=== PATIENT | male | born 1965 | race Caucasian/White ===

== ENCOUNTER 2024-07-29 07:34 | Day surgery (SDC) | payer OTHER ==
[2024-07-27 13:33] LABS: Absolute Basophils 0.1 K/uL (0-0.5); Absolute Eosinophils 0.3 K/uL (0-0.5); Absolute Lymphocytes (CBC) 1.9 K/uL (0.7-4.9); Absolute Monocytes 0.5 K/uL (0.1-1.3); Absolute Neutrophil 6.2 K/uL (1.8-8.0); Basophils % 0.8 % (0-1.3); Eosinophils % 3.1 % (0-4.4); Hematocrit 41.8 % (39.6-49.0); Hemoglobin 13.5 g/dL (13.6-17.9); Lymphocytes % 21.3 % (15.3-44.8); MCH 26.8 pg (27.0-35.0); MCHC 32.3 g/dL (32.0-36.0); MPV 7.4 fL (7.6-11.3); Monocytes % 5.8 % (3.3-12.3); Nucleated Red Blood Cells % 0.1 % (0-0); Platelets 256 thou/uL (152-406); RBC Red Blood Cell Count 5.04 M/uL (4.33-5.43); Red Cell Distribution Width 14.6 % (12.1-15.2)
[2024-07-27 13:44] LABS: Anion Gap 7.2 mEq/L (5.0-15.0); Potassium 4.2 mEq/L (3.5-5.1)
--- NOTE | 2024-07-28 10:31 | EKG ---
Test Date: 2024-07-27 Test Time: 13:29:42 [facility] Lead: ALEXANDRA MEASUREMENT RESULTS: Intervals: Rate: 79 [place]: 170 QRSD: 84 QT: 374 QTc: 428 [place]: P: 46 [place]: 170 QRS: 27 T: 77 INTERPRETIVE STATEMENTS: Normal sinus rhythm Normal ECG No previous ECG available for comparison Electronically Signed On 07-28-24 10:29:57 CDT by Ramón Mancuso
[2024-07-29] MEDS: Ringers Lactate 1,000 ML IV ONE (08:00)
[2024-07-29] MEDS ORDERED: LIDOCAINE 1% MPF 5 ML VIAL ONE (10:46)
[2024-07-29] MEDS ORDERED: propofoL 200 MG/20 ML VIAL IV ONE (10:46)
[2024-07-29 13:29] VITALS: BP 115/68; TEMP 97.4; O2SAT 98
== END 2024-07-29 12:07 | disposition home or self-care (01) ==
LOC: OR 07:34
PROVIDERS: ATTEND Surgery
PROC: 0DBM8ZX Excision of Descending Colon, Via Natural or Artificial Opening Endoscopic, Diagnostic (ICD-10-PCS; principal; 2024-07-29 08:30)
DX: Z12.11 Encounter for screening for malignant neoplasm of colon (principal); N42.9 Disorder of prostate, unspecified; K52.9 Noninfective gastroenteritis and colitis, unspecified; K64.8 Other hemorrhoids
CPT/HCPCS: 93005; 85025; 80048; 36415; 88305; 45380; J2704; J2001; J7120

== ENCOUNTER 2024-08-04 11:29 | Day surgery (SDC) | payer OTHER ==
[2024-08-04] MEDS ORDERED: Ringers Lactate 1,000 ML IV ONE (11:34)
[2024-08-04] MEDS ORDERED: CEFAZOLIN SODIUM 2 GM/VIAL ONE (12:08)
[2024-08-04] MEDS ORDERED: LIDOCAINE 1% MPF 5 ML VIAL ONE (13:51)
[2024-08-04] MEDS ORDERED: propofoL 200 MG/20 ML VIAL IV ONE (13:51)
[2024-08-04] MEDS ORDERED: FENTANYL CITR 100 MCG/2 ML ONE (13:52)
[2024-08-04] MEDS ORDERED: MIDAZOLAM HCL 2 MG/2 ML INJ ONE (13:52)
[2024-08-04] MEDS ORDERED: ROCURONIUM 50 MG/5 ML VIAL IV ONE (13:53)
[2024-08-04] MEDS ORDERED: LIDOCAINE HCL/EPINEPHRINE 20 ML MDV ONE (13:55)
[2024-08-04] MEDS ORDERED: ONDANSETRON 4 MG/2 ML VIAL ONE (14:36)
[2024-08-04] MEDS ORDERED: KETOROLAC 30 MG/ML INJ ONE (14:36)
[2024-08-04] MEDS ORDERED: dexAMETHasone 4 MG/ML VIAL ONE (14:36)
[2024-08-04] MEDS ORDERED: GLYCOPYRROLATE 0.2 MG/ML SYR ONE (15:15)
[2024-08-04] MEDS ORDERED: NEOSTIGMINE 1 MG/ML -10 ML VIAL ONE (15:15)
--- NOTE | 2024-08-04 15:19 | P.OP ---
Preoperative diagnosis: Umbilical Hernia Postoperative diagnosis: Umbilical Hernia Primary procedure: Laparoscopic Umbilical Hernia Repair with mesh Anesthesia: GETA + Local Estimated blood loss: <5cc Specimen: Hernia Contents Findings: ~ 2cm incarcerated adipose hernia Complications: None Implants: Bard Ventralite ST 11.4cm Round mesh, Absorbatac x 45 Transferred to: Recovery Room Condition: Good
[2024-08-04] MEDS: HYDROMORPHONE HCL 1 MG/ML INJ ONE (15:33)
[2024-08-04 16:18] VITALS: TEMP 96.6
--- NOTE | 2024-08-04 16:18 | OP ---
Date of Procedure: 08/04/2024 Surgeon: Leonard Guerrero MD, Preoperative Diagnosis: Umbilical hernia. Postoperative Diagnosis: Umbilical hernia. Procedure: Laparoscopic umbilical hernia repair with mesh. Anesthesia: General endotracheal with local 1% lidocaine with epinephrine. Estimated Blood Loss: Less than 5 cc. Specimen: Hernia contents, adipose tissue. Findings: Approximately 2 cm incarcerated adipose containing hernia. Complications: None. Implants: Bard Ventralight ST mesh with Echo Positioning System, 11.4 cm round mesh utilized and Abs orbaTack 45 absorbable tacks utilized. Disposition: The patient transferred to recovery room in good condition. Procedure In Detail: After informed consent was obtained, patient was brought into the operating henrique m, prepped and draped in the usual sterile fashion after adequate anesthesia was achieved. I anesthe tized an area of the left upper quadrant down to subcutaneous tissues. 5-mm 0-degree optical trocar was introduced in the abdomen without incident or complication. Insufflation was obtained to 15 mmHg , at this time. There was no injury to vital structures upon entering the abdomen. Additional troca r was placed in the left lower abdomen, similarly anesthetized and sharply incised. A 12 mm trocar w as placed under direct vision without incident or complication. At this point, I used the LigaSure d evice to take down the hernia contents which was found to be adipose tissue in the preperitoneal spac e. Ultimately, this was ligated and placed in an EndoCatch bag and removed through the lateral troca r and sent off for pathologic examination as hernia contents. At this point, the area was inspected. No additional hemostatic measures were required. Preperitoneal fat was swept back. The Endo stitc h with an 0 V-Loc suture was used to close the hernia sac, imbricating it, at this point, in a runnin g fashion with good approximation of tissues. I then deployed an 11.4 cm Bard Ventralight mesh with Echo Positioning System at the center portion of the defect through a separate stab incision in the s upraumbilical position. This was ultimately deployed at this point and AbsorbaTack absorbable tacks were used to secure the mesh to the anterior abdominal wall with a single crown, at this point. The balloon deployment system was removed, found to be intact on the back table and a total of 45 tacks w ere used to secure the mesh to the anterior abdominal wall with good apposition using a double crown type orientation. At this point, the abdomen was desufflated slightly and the areas inspected. No a dditional hemostatic measures were required. I then closed the 12 mm trocar site using a Wai acuña suture passer with 0 Vicryl in an interrupted fashion with good approximation of tissues. The a bdomen was desufflated under direct visualization without incident or complication. All remaining tr ocars were removed. All skin incisions were then copiously irrigated and closed with a 4-0 Monocryl in a running fashion. Dermabond was placed over top. The patient tolerated the procedure without in cident or complication, and transferred to PACU in good condition. All counts were correct at the en d of the case. OTTONIEL/AMANDA Voice ID: [id number] Report ID: [id number]
[2024-08-04] MEDS: HYDROCODONE/APAP 10/325 TAB ONE (16:52)
[2024-08-04 17:12] VITALS: BP 111/63; O2SAT 95
== END 2024-08-04 17:05 | disposition home or self-care (01) ==
LOC: OR 11:29
PROVIDERS: ATTEND Surgery
PROC: 0WUF4JZ Supplement Abdominal Wall with Synthetic Substitute, Percutaneous Endoscopic Approach (ICD-10-PCS; principal; 2024-08-04 13:30)
DX: K42.9 Umbilical hernia without obstruction or gangrene (principal)
CPT/HCPCS: 49591; J2704; J1100; J2710; J2001; J2250; J3010; J1170; J2405; J7120; C1781; 88302

== ENCOUNTER 2024-12-02 12:29 | Emergency (ER) | payer OTHER ==
--- OUTSIDE RECORDS SUMMARY | 2024-12-02 12:36 | XMS REPORT | Continuity of Care Document ---
Author Name Unknown Address [address] [facility] [address] [place] [address] [facility] thconnect Address [address] [facility] [address] [place] [address] Care Team Providers Care Inoculator Name Role Phone Tila Gore [facility] Primary Care Physician MAGDY KERNS Attending Clinician Unavailable LUIS FELIPE FRY Attending Clinician Unavailable Vicente MERCER, Divya Silvestre Attending Clinician [phone] Luis Felipe Barrientos Attending Clinician [phone] KATERYNA FU Attending Clinician Unavailab KATERYNA Tompkins Attending Clinician Unavailab Kateryna Tompkins DO Attending Clinician [phone] Doctor Unassigned, [place] [employer] Attending Clinician U Magdy Harvey MD Attending Clinician [phone] RADIOLOGY Attending Clinician Unavailable Radiology Attending Clinician Unavailable Divya TRAMMELL Attending Clinician Unavailable Divya Shelton Attending Clinician [phone] Campaigns, Generic Provider Attending Clinician Unavailable GRAEME COLLINS Attending Clinician Unavailable Graeme Collins MD Attending Clinician [phone] EUNICE ESCOBEDO Attending Clinician Unavailable Eunice Escobedo NP Attending Clinician +[phone] AMBERLY FREY Attending Clinician Unavailable Amberly Frey MD Attending Clinician +[phone] AZALEA QUEEN Attending Clinician Unavailable Azalea Queen MD Attending Clinician +[phone] ORLANDO KWAN Attending Clinician Unavailable DIVYA JACKSON Attending Clinician Unavailable Divya Jackson NP Attending Clinician +[phone] JOHNNIE BAGLEY Attending Clinician Unavailable Johnnie Bagley MD Attending Clinician [phone] FLORIAN LEMUS Attending Clinician Unavailable Floiran Mckeon Attending Clinician [phone] BILL RWOE Attending Clinician Unavailable Bill Vincent Attending Clinician [phone] Unknown, Attending Attending Clinician Unavailab JUAQUIN Olson Attending Clinician Unavailable Juaquin Boswell DO Attending Clinician [phone] Misty Carpenter Attending Clinician Unavailang Bo --Gay Attending Clinician [phone] Malick Attending Clinician Unavailable Yoan Lockett Attending Clinician Unavailable MAGDY KERNS Admitting Clinician Unavailable KATERYNA FU Admitting Clinician Unavailab ZACH Lay Admitting Clinician Unavailab GRAEME Agosto Admitting Clinician Unavailable JUAQUIN BOSWELL Admitting Clinician Unavailable Physician, No Primary or Family Admitting Clinic michaela Unavailable Mattrokenrick_R Admitting Clinician Unavailable Payers Payer Name Policy Type Policy Number Effective Date Expirati on Date Source [facility] [id number] 00:00:00 [employer] MEDIC[employer] ADV[employer]AGE PLAN [id number] 2023 00:00:00 [employer] (MEDICARE REPLACEMENT HMO) [id number] 2022 00:00:00 Problems Condition Name Condition Details Condition Category Status Onset Date Resolution Date Last Treatment Date Treating Clinician Comments Source Gastroesop hageal reflux disease, unspecifie d whether esophagiti s present Gastroesop hageal reflux disease, unspecifie d whether esophagiti s present Disease Active 2024-0 4-10 00:00: 00 [facility] Alternatin g constipati on and diarrhea Alternatin g constipati on and diarrhea Disease Active 0 4-10 00:00: 00 [facility] Colon cancer screening Colon cancer screening Disease Active 0 4-10 00:00: 00 [facility] Allergies, Adverse Reactions, Alerts Allergy Name Allergy Type Status Severity Reaction(s) Onset Date Inactive Date Treating Clinician Comments Source tree nuts (Not Checked) Propensi ty to adverse reaction to drug Active 0 5-08 00:00: 00 [facility] iodine Propensi ty to adverse reaction to drug Active 0 3-28 00:00: 00 [facility] LATEX DRUG INGREDI Active Unknown-Cmnt 2022-11 1-11 00:00: 00 [facility] Latex Propensi ty to adverse reaction s Active Unknown - See comments 2022-11 1- 00:00: 00 [facility] shellfis h derived FA Active SV HIVES, BLISTERS, THROAT SWELLING 0 4-04 00:00: 00 [facility] Codeine Phosphat e Propensi ty to adverse reaction to drug Active 0 3-16 00:00: 00 [facility] TREE NUT DRUG INGREDI Active Anaphylaxis 2022-0 2-22 00:00: 00 [facility] Codeine Propensi ty to adverse reaction s Active Hives 2022-0 2-22 00:00: 00 [facility] Iodine Propensi ty to adverse reaction s Active Anaphylaxis 2022-0 2-22 00:00: 00 [facility] Penicill ins Propensi ty to adverse reaction s Active Hives 2022-0 2-22 00:00: 00 [facility] Shellfis h Derived Propensi ty to adverse reaction s Active Anaphylaxis 2022-0 2-22 00:00: 00 [facility] Tree Nut Propensi ty to adverse reaction s Active Anaphylaxis 2022-0 2-22 00:00: 00 [facility] PENICILL INS Drug Class Active Hives 2022-0 2-22 00:00: 00 [facility] CODEINE DRUG INGREDI Active Hives 01-14 00:00: 00 [facility] SHELLFIS H DERIVED DRUG INGREDI Active Anaphylaxis 01-14 00:00: 00 [facility] IODINE DRUG INGREDI Active Anaphylaxis 01-14 00:00: 00 [facility] shellfis h derived FA Active MO SWELLING 12-10 00:00: 00 [facility] iodine DA Active MO ITCHING 12-10 00:00: 00 [facility] latex DA Active MO RASH 12-10 00:00: 00 [facility] Penicill ins Propensi ty to adverse reaction to drug Active 01-06 00:00: 00 [facility] Penicill ins DA Active U RASH 2020-11 00:00: 00 [facility] codeine DA Active U RASH 2020-11 00:00: 00 [facility] NO KNOWN ALLERGIE S Drug Class Active [facility] Social History Social Habit Start Date Stop Date Quantity Comments Source Gender identity [facility] History of tobacco use Cigarette Smoker [facility] Tobacco use and exposure 2024-03-02 00:00:00 2024-03-02 00:00:00 Smokeless tobacco non-user [facility] History of Social function 2023-08-04 00:00:00 2023-08-04 00:00:00 [facility] Exposure to SARS-CoV-2 (event) 2023-03-15 00:00:00 2023-03-25 17:29:00 Not sure [facility] Sex assigned at 1965 00:00:00 1965 00:00:00 [facility] Smoking Status Start Date Stop Date Source Tobacco smoking consumption unknown [facility] Ex-smoker 2024-03-02 00:00:00 2024-03-02 00:00:00 [facility] Medications Ordered Medication Name Filled Medication Name Start Date Stop Date Current Medication? Ordering Clinician Indication Dosage Frequency Signature (SIG) Comments Components Source aripiprazol e 10 mg tablet 2023-11 00:00: 00 Yes 1mg [facility] hydroxyzine HCl 25 mg tablet 2023-11 00:00: 00 Yes 1mg [facility] escitalopra m 10 mg tablet 2023-11 00:00: 00 Yes 1mg [facility] acetaminoph en (TYLENOL) tablet 1,000 mg 2023-11 01:00: 00 10-25 01:00 :00 No 1000mg 1,000 mg, Oral, ONCE, 1 dose, On Thu10/24/24 at 1900, [facility] benzonatate 200 mg capsule 2023-11 00:00: 00 Yes [id number] 200mg Take 1 capsule by mouth 3 (three) times daily as needed for Cough. [facility] oseltamivir 75 mg capsule 2023-11 00:00: 00 10-30 05:59 :00 Yes [id number] 75mg Take 1 capsule by mouth in the morning and 1 capsule in the evening. Do all this for 5 days. [facility] aripiprazol e 10 mg tablet 2023-11 00:00: 00 Yes 1mg [facility] hydroxyzine HCl 25 mg tablet 2023-11 00:00: 00 Yes 1mg [facility] escitalopra m 10 mg tablet 2023-11 00:00: 00 Yes 1mg [facility] aripiprazol e 10 mg tablet 2023-11 00:00: 00 Yes 1mg [facility] hydroxyzine HCl 25 mg tablet 2023-11 00:00: 00 Yes 1mg [facility] escitalopra m 10 mg tablet 2023-11 00:00: 00 Yes 1mg [facility] aripiprazol e 10 mg tablet 08-13 00:00: 00 Yes 1mg [facility] hydroxyzine HCl 25 mg tablet 08-13 00:00: 00 Yes 1mg [facility] escitalopra m 10 mg tablet 08-13 00:00: 00 Yes 1mg [facility] aripiprazol e 10 mg tablet 07-16 00:00: 00 Yes 1mg [facility] hydroxyzine HCl 25 mg tablet 07-16 00:00: 00 Yes 1mg [facility] escitalopra m 10 mg tablet 07-16 00:00: 00 Yes 1mg [facility] methocarbam oL (ROBAXIN) tablet 1,000 mg 07-03 19:15: 00 07-03 19:15 :00 No 1000mg 1,000 mg, Oral, ONCE, 1 dose, On Thu07/03/24 at 1415, [facility] ketorolac (TORADOL) injection 30 mg 07-03 18:00: 00 07-03 17:14 :00 No 30mg 30 mg, Slow IV Push, ONCE, 1 dose, On Thu07/03/24 at 1300, Routine [facility] NaCl 0.9% (NS) bolus infusion 1,000 mL 07-03 18:00: 00 07-03 19:12 :00 No 1000mL at 999 mL/hr, 1,000 mL, IV Infusion, ONCE, 1 dose, On Thu07/03/24 at 1300, [facility] methocarbam oL 750 mg tablet 07-03 00:00: 00 Yes [id number] 750mg Take 1 tablet by mouth every 6 (six) hours as needed for Pain (scale 1-3). [facility] aripiprazol e 10 mg tablet 06-17 00:00: 00 Yes 1mg [facility] hydroxyzine HCl 25 mg tablet 06-17 00:00: 00 Yes 1mg [facility] escitalopra m 10 mg tablet 06-17 00:00: 00 Yes 1mg [facility] lisinopril 5 mg tablet 06-08 00:00: 00 Yes 1mg [facility] doxepin 25 mg capsule 06-08 00:00: 00 Yes 12mg [facility] aripiprazol e 10 mg tablet 05-06 00:00: 00 Yes 1mg [facility] hydroxyzine HCl 25 mg tablet 05-06 00:00: 00 Yes 1mg [facility] escitalopra m 10 mg tablet 05-06 00:00: 00 Yes 1mg [facility] prednisone 20 mg tablet 05-02 00:00: 00 Yes mg [facility] ketoconazol e 2 % shampoo 05-02 00:00: 00 Yes % [facility] ibuprofen 800 mg tablet 05-02 00:00: 00 Yes 1mg [facility] aripiprazol e 10 mg tablet 04-15 00:00: 00 Yes 1mg [facility] hydroxyzine HCl 25 mg tablet 04-15 00:00: 00 Yes 1mg [facility] escitalopra m 10 mg tablet 04-15 00:00: 00 Yes 1mg [facility] dicyclomine 20 mg tablet 03-30 00:00: 00 07-03 00:00 :00 No [id number] 20mg Take 1 tablet by mouth 4 (four) times daily. [facility] aripiprazol e 10 mg tablet 03-18 00:00: 00 Yes 1mg [facility] hydroxyzine HCl 25 mg tablet 03-18 00:00: 00 Yes 1mg [facility] escitalopra m 10 mg tablet 03-18 00:00: 00 Yes 1mg [facility] ondansetron (ZOFRAN-ODT ) disintegrat ing tablet 4 mg 03-15 20:00: 00 03-15 18:58 :00 No 4mg 4 mg, Oral, ONCE, 1 dose, On Thu03/15/24 at 1500, Routine [facility] methocarbam ol 500 mg tablet 03-15 00:00: 00 Yes mg [facility] esomeprazol e magnesium 20 mg capsule,del ayed release 03-15 00:00: 00 Yes mg [facility] NAPROXEN 500 MG 03-15 00:00: 00 Yes [facility] ONDANSETRON ODT 4 MG 03-15 00:00: 00 Yes [facility] esomeprazol e (NEXIUM 24HR) 20 mg capsule 03-15 00:00: 00 Yes [id number] 20mg Take 20 mg by mouth daily before a meal. [facility] ondansetron 4 mg disintegrat ing tablet 03-15 00:00: 00 07-03 00:00 :00 No [id number] 4mg Take 1 tablet by mouth every 8 (eight) hours as needed for Nausea and Vomiting (N/V). [facility] methocarbam oL 500 mg tablet 03-15 00:00: 00 07-03 00:00 :00 No [id number] 500mg Take 1 tablet by mouth 4 (four) times daily. [facility] benzonatate 200 mg capsule 03-15 00:00: 00 07-03 00:00 :00 No [id number] 200mg Take 1 capsule by mouth 3 (three) times daily as needed for Cough for up to 20 doses. [facility] naproxen (NAPROSYN) 500 mg tablet 03-15 00:00: 00 07-03 00:00 :00 No [id number] 500mg Take 1 tablet by mouth in the morning and 1 tablet in the evening. Take with meals. [facility] acetaminoph en (TYLENOL) tablet 1,000 mg 03-04 17:30: 00 03-04 16:32 :00 No 1000mg 1,000 mg, Oral, ONCE, 1 dose, On Thu03/04/24 at 1230, Routine [facility] NaCl 0.9% (NS) bolus infusion 1,000 mL 03-04 15:15: 00 03-04 16:55 :00 No 1000mL at 999 mL/hr, 1,000 mL, IV Infusion, ONCE, 1 dose, On Thu03/04/24 at 1015, STAT [facility] ondansetron (ZOFRAN (PF)) injection 4 mg 03-04 15:15: 00 03-04 14:26 :00 No 4mg 4 mg, Slow IV Push, ONCE, 1 dose, On Thu03/04/24 at 1015, [facility] dicyclomine 20 mg tablet 03-04 00:00: 00 Yes mg [facility] dicyclomine 20 mg tablet 03-04 00:00: 00 07-03 00:00 :00 No [id number] 20mg Take 1 tablet by mouth 4 (four) times daily. [facility] ARIPiprazol e (ABILIFY) 5 mg tablet 03-02 15:10: 36 Yes 1 tablet Orally Once a day [facility] escitalopra m oxalate (LEXAPRO) 20 mg tablet 03-02 15:10: 36 Yes 1 tablet Orally Once a day [facility] lisinopriL 5 mg tablet 03-02 15:10: 36 Yes 1 tablet Orally Once a day [facility] TAKE DIRECTED BEFORE COLONOSCOPY 03-02 00:00: 00 Yes [facility] peg-electro lyte soln 236-22.74-6 .74 -5.86 gram solution 03-02 00:00: 00 Yes [id number] Take as directed before colonoscop y [facility] hydrOXYzine 25 mg tablet 02-22 00:00: 00 Yes [facility] lisinopril 5 mg tablet 02-17 00:00: 00 Yes 1mg [facility] aripiprazol e 10 mg tablet 02-17 00:00: 00 Yes 1mg [facility] hydroxyzine HCl 25 mg tablet 02-17 00:00: 00 Yes 1mg [facility] escitalopra m 10 mg tablet 02-17 00:00: 00 Yes 1mg [facility] doxepin 25 mg capsule 02-17 00:00: 00 Yes 12mg [facility] escitalopra m 10 mg tablet 02-09 00:00: 00 Yes 1mg [facility] NAPROXEN 125 MG/5 ML SUSPEN 01-28 00:00: 00 Yes [facility] TAKE 1 TABLET BY MOUTH 4 TIMES DAILY NEEDED FOR MUSCLE SPASMS. 01-28 00:00: 00 Yes [facility] ondansetron (ZOFRAN-ODT ) disintegrat ing tablet 4 mg 01-21 00:00: 00 23:38 :00 No 4mg 4 mg, Oral, ONCE, 1 dose, On [place] 01/21/24 at 1800, Routine [facility] ketorolac (TORADOL) injection 30 mg 23:15: 00 23:38 :00 No 30mg 30 mg, Intramuscu lar, ONCE, 1 dose, On [place] 01/21/24 at 1715, [facility] TAKE 1 CAPSULE BY MOUTH THREE TIMES A DAY NEEDED FOR COUGH 00:00: 00 Yes [facility] proMETHazin e 25 mg tablet 00:00: 00 07-03 00:00 :00 No [id number] 25mg Take 1 tablet by mouth every 6 (six) hours as needed for Nausea and Vomiting (N/V). [facility] benzonatate 100 mg capsule 00:00: 00 07-03 00:00 :00 No [id number] 100mg Take 1 capsule by mouth 3 (three) times daily as needed for Cough. [facility] aripiprazol e 5 mg tablet 01-13 00:00: 00 Yes mg [facility] escitalopra m 10 mg tablet 01-13 00:00: 00 Yes mg [facility] TAKE 1 TABLET AT BEDTIME. 01-13 00:00: 00 04-01 00:00 :00 No 10 [facility] TAKE 1 AND 1/2 TABLETS AT BEDTIME. 01-13 00:00: 00 04-01 00:00 :00 No 5 [facility] ofloxacin 0.3 % ophthalmic solution 18 00:00: 00 01-16 05:59 :00 No [id number] 1[drp] Place 1 Drop in left eye in the morning and 1 Drop at noon and 1 Drop in the evening. Do all this for 5 days. [facility] OFLOXACIN 0.3% EYE DROPS 01-09 00:00: 00 Yes [facility] ESCITALOPRA M 5 MG 12-16 00:00: 00 Yes [facility] ARIPIPRAZOL E 5 MG 12-16 00:00: 00 Yes [facility] TAKE 1 TABLET DAILY. 12-16 00:00: 00 04-01 00:00 :00 No 5 [facility] TAKE 1 AND 1/2 TABLETS AT BEDTIME. 12-16 00:00: 00 04-01 00:00 :00 No 5 [facility] TAKE 1 TABLET DAILY. 12-02 00:00: 00 Yes 5 [facility] methylPREDN ISolone 4 mg tablets 11-28 00:00: 00 07-03 00:00 :00 No [id number] Take by mouth SEE-INSTRU CTIONS. follow package directions [facility] acetaminoph en (TYLENOL) tablet 650 mg 11-27 23:45: 00 11-27 23:41 :00 No 650mg 650 mg, Oral, ONCE, 1 dose, On Thu11/27/23 at 1745, [facility] NaCl 0.9% (NS) bolus infusion 500 mL 11-27 22:30: 00 11-27 22:59 :00 No 500mL at 999 mL/hr, 500 mL, IV Infusion, ONCE, 1 dose, On Thu11/27/23 at 1630, [facility] dexamethaso ne sod phos PF injection 10 mg 11-27 21:45: 00 11-27 22:04 :00 No 10mg 10 mg, Slow IV Push, ONCE, 1 dose, On Thu11/27/23 at 1545, 1 mL [facility] diphenhydrA MINE (BENADRYL) injection 25 mg 11-27 21:45: 00 11-27 22:05 :00 No 25mg 25 mg, Slow IV Push, ONCE, 1 dose, On Thu11/27/23 at 1545, STAT [facility] famotidine (PEPCID (PF)) injection 20 mg 11-27 21:45: 00 11-27 22:01 :00 No 20mg 20 mg, Slow IV Push, ONCE, 1 dose, On Thu11/27/23 at 1545, [facility] EPINEPHrine 1:1,000 (1 mg/mL) (ADRENALIN) injection 0.3 mg 11-27 21:45: 00 11-27 21:45 :00 No .3mg 0.3 mg, Intramuscu lar, ONCE, 1 dose, On Thu11/27/23 at 1545, STAT [facility] ARIPiprazol e (ABILIFY) 5 mg tablet 11-27 16:03: 11 Yes 1 tablet Orally Once a day [facility] escitalopra m oxalate (LEXAPRO) 20 mg tablet 11-27 16:03: 11 Yes 1 tablet Orally Once a day [facility] lisinopriL 5 mg tablet 11-27 16:03: 11 Yes 1 tablet Orally Once a day [facility] METHYLPREDN ISOLONE 4 MG DOSEPK 11-27 00:00: 00 Yes [facility] FAMOTIDINE 20 MG 11-27 00:00: 00 Yes [facility] EPINEPHRINE 0.3 MG AUTO-INJECT 11-27 00:00: 00 Yes [facility] EPINEPHrine 0.3 mg/0.3 mL injection 11-27 00:00: 00 Yes [id number] .3mg 0.3 mL by Intramuscu lar route as needed (allergic reactice) for up to 2 doses. [facility] TAKE 1 TABLET DAILY. 11-27 00:00: 00 04-01 00:00 :00 No 5 [facility] famotidine 20 mg tablet 11-27 00:00: 00 12-05 05:59 :00 No [id number] 20mg Take 1 tablet by mouth in the morning and 1 tablet in the evening. Do all this for 7 days. [facility] TAKE 1 AND 1/2 TABLETS AT BEDTIME. 2022-11 00:00: 00 04-01 00:00 :00 No 5 [facility] TAKE 1 AND 1/2 TABLETS AT BEDTIME. 2022-11 00:00: 00 04-01 00:00 :00 No 5 [facility] ARIPIPRAZOL E 5 MG 2022-11 00:00: 00 Yes [facility] TAKE 0.5 TABLET FOR 3 DAYS THEN SWITCH TO 1 TABLET AT NIGHT 2022-11 00:00: 00 04-01 00:00 :00 No 5 [facility] TAKE 1 TABLET DAILY. 2022-11 00:00: 00 Yes 6 [facility] lactobacill us acidophilus tablet 1 mg 2022-11 16:00: 00 10-03 15:27 :00 No 1mg 1 mg, Oral, ONCE NOW, 1 dose, On 10/03/23 at 1000, [facility] loperamide (IMODIUM A-D) capsule 4 mg 2022-11 16:00: 00 10-03 15:27 :00 No 4mg 4 mg, Oral, ONCE NOW, 1 dose, On 10/03/23 at 1000, Routine [facility] ketorolac (TORADOL) injection 30 mg 2022-11 15:45: 00 10-03 15:27 :00 No 30mg 30 mg, Slow IV Push, ONCE NOW, 1 dose, On 10/03/23 at 0945, [facility] NaCl 0.9% (NS) bolus infusion 1,000 mL 2022-11 15:45: 00 10-03 16:53 :00 No 1000mL at 999 mL/hr, 1,000 mL, IV Piggyback, ONCE, 1 dose, On 10/03/23 at 0945, STAT [facility] ONDANSETRON ODT 4 MG 2022-11 00:00: 00 Yes [facility] [place] ondansetron 4 mg disintegrat ing tablet 2022-11 00:00: 00 Yes [id number] 4mg Take 1 tablet by mouth every 8 (eight) hours as needed for Nausea and Vomiting (N/V). [facility] ketorolac 10 mg tablet 2022-11 00:00: 00 Yes [id number] 10mg Take 1 tablet by mouth every 6 (six) hours as needed for Pain (scale 4-6) or Pain (scale 7-10). [facility] acetaminoph en (TYLENOL ARTHRITIS PAIN) 650 mg CR tablet 2022-11 00:00: 00 Yes [id number] 650mg Take 1 tablet by mouth every 8 (eight) hours as needed for Pain. [facility] loperamide 2 mg capsule 2022-11 00:00: 00 Yes [id number] 2mg Take 1 capsule by mouth 3 (three) times daily as needed for Diarrhea. [facility] Saccharomyc es boulardii (FLORASTOR) 250 mg capsule 2022-11 00:00: 00 Yes [id number] 250mg Take 1 capsule by mouth in the morning and 1 capsule in the evening. [facility] EC-NAPROXEN DR 500 MG 2022-11 00:00: 00 Yes [facility] DIHYDROERGO TAMINE 4 MG/ML SPRY 2022-11 00:00: 00 Yes [facility] ESCITALOPRA M 5 MG 2022-11 00:00: 00 Yes [facility] ZIPRASIDONE HCL 40 MG CAPSULE 2022-11 00:00: 00 Yes [facility] hydrOXYzine PAMOATE 50 MG C 2022-11 00:00: 00 Yes [facility] LITHIUM CARB 600 MG 2022-11 00:00: 00 Yes [facility] DOXEPIN HCL 50 MG 2022-11 00:00: 00 Yes [facility] SUMAtriptan (IMITREX) injection 6 mg 2022-11 23:00: 00 09-02 22:53 :00 No 6mg 6 mg, Subcutaneo us, ONCE, 1 dose, On Thu09/02/23 at 1800, [facility] ondansetron (ZOFRAN-ODT ) disintegrat ing tablet 4 mg 2022-11 21:30: 00 09-02 20:58 :00 No 4mg 4 mg, Oral, ONCE, 1 dose, On Thu09/02/23 at 1630, Routine [facility] SUMAtriptan (IMITREX) injection 6 mg 2022-11 20:30: 00 09-02 20:58 :00 No 6mg 6 mg, Subcutaneo us, ONCE, 1 dose, On Thu09/02/23 at 1530, [facility] SUMATRIPTAN SUCC 100 MG 2022-11 00:00: 00 Yes [facility] ondansetron 4 mg disintegrat ing tablet 2022-11 00:00: 00 11-27 00:00 :00 No [id number] 4mg Take 1 tablet by mouth every 8 (eight) hours as needed for Nausea and Vomiting (N/V). [facility] LISINOPRIL 5 MG 08-19 00:00: 00 Yes [facility] NEOMYCIN-PO LYMYXIN-HC EAR SUSP 08-04 00:00: 00 Yes [facility] neomycin-po lymyxin-hyd rocortisone 3.5-10,000- 1 mg/mL-unit/ mL-% otic susp 08-04 00:00: 00 08-15 04:59 :00 No [id number] 3[drp] Place 3 Drops in left ear 4 (four) times daily for 10 days. [facility] ZIPRASIDONE HCL 40 MG CAPSULE 08-03 00:00: 00 Yes [facility] ondansetron (ZOFRAN (PF)) injection 4 mg 07-30 15:30: 00 07-30 15:27 :00 No 4mg 4 mg, Slow IV Push, ONCE, 1 dose, On [place] 07/30/23 at 1030, [facility] TAKE 1 TABLET BY MOUTH TWICE A DAY 06-30 00:00: 00 Yes [facility] acetaminoph en (TYLENOL) tablet 1,000 mg 06-06 21:30: 00 06-06 21:25 :00 No 1000mg 1,000 mg, Oral, ONCE, 1 dose, On 06/06/23 at 1630, [facility] ondansetron (ZOFRAN (PF)) injection 4 mg 06-06 20:30: 00 06-06 19:34 :00 No 4mg 4 mg, Slow IV Push, ONCE, 1 dose, On 06/06/23 at 1530, [facility] NaCl 0.9% (NS) bolus infusion 1,000 mL 06-06 20:30: 00 06-06 20:48 :00 No 1000mL at 999 mL/hr, 1,000 mL, IV Infusion, ONCE, 1 dose, On 06/06/23 at 1530, STAT [facility] FAMOTIDINE 20 MG 06-06 00:00: 00 Yes [facility] KETOROLAC 10 MG 06-06 00:00: 00 Yes [facility] METOCLOPRAM JAYDEN 10 MG 15 00:00: 00 Yes [facility] ketorolac 10 mg tablet 15 00:00: 00 07-03 00:00 :00 No [id number] 10mg Take 1 tablet by mouth every 8 (eight) hours. [facility] metoclopram jayden HCl 10 mg tablet 15 00:00: 00 11-27 00:00 :00 No [id number] 10mg Take 1 tablet by mouth every 6 (six) hours. [facility] famotidine 20 mg tablet 7-15 00:00: 00 11-27 00:00 :00 No [id number] 20mg Take 1 tablet by mouth in the morning and 1 tablet in the evening. [facility] ubrogepant (UBRELVY) 100 mg Tab 7-12 00:00: 00 Yes 1 tablet may take second dose at least 2 hours after first dose as needed Orally Once a day for 30 day(s) [facility] TAKE 1 CAPSULE TWICE DAILY. 05-20 00:00: 00 Yes 40 [facility] TAKE 1 TABLET TWICE DAILY. 05-20 00:00: 00 Yes 450 [facility] 1 (EACH) TWICE A DAY TAKE WITH 350 CALORIE MEAL 05-13 00:00: 00 Yes [facility] DOXEPIN HCL 25MG 05-13 00:00: 00 Yes [id number] [facility] CITALOPRAM 20MG 05-13 00:00: 00 Yes [facility] LITHIUM CARB 300MG - 00:00: 00 Yes [id number] [facility] TAKE 1 CAPSULE TWICE DAILY. 04-14 00:00: 00 Yes 20 [facility] TAKE 1 TABLET DAILY. 04-14 00:00: 00 Yes 20 [facility] DOXEPIN HCL 25MG 17 00:00: 00 Yes [facility] 1 (EACH) DAILY DECREASE TO 20MG EVERY DAY 04-08 00:00: 00 Yes [facility] TAKE 1 TABLET BY MOUTH TWICE A DAY 17 00:00: 00 04-01 00:00 :00 No [facility] LITHIUM CARB 300MG -08 00:00: 00 Yes [id number] [facility] clonazePAM (KLONOPIN) tablet 1 mg - 01:00: 00 Yes 1mg 1 mg, Oral, TID, First dose on Thu03/25/23 at 2000, Until Discontinu ed, Routine [facility] HYDROXYZ HCL 10MG 03-26 00:00: 00 Yes [facility] LORazepam (ATIVAN) tablet 1 mg 03-25 21:15: 00 03-25 22:18 :00 No 1mg 1 mg, Oral, ONCE, 1 dose, On Thu03/25/23 at 1615, [facility] TAKE 1 TABLET BY MOUTH EVERY 6 HOURS NEEDED 03-25 00:00: 00 Yes [facility] hydrOXYzine 10 mg tablet 03-25 00:00: 00 11-27 00:00 :00 No [id number] 10mg Take 1 tablet by mouth every 6 (six) hours. [facility] TAKE 1 CAPSULE BY MOUTH EVERY 8 HOURS WITH FOOD AND WATER UNTIL GONE 03-20 00:00: 00 Yes Vasquez Marlow HYDROXYZ HCL 25MG 03-19 00:00: 00 Yes [id number] Vasquez Marlow IBUPROFEN 800MG 03-12 00:00: 00 Yes Vasquez Marlow CLINDAMYCIN 300MG 03-12 00:00: 00 Yes Vasquez Marlow ZIPRASIDONE 20MG 02-23 00:00: 00 Yes Vasquez Marlow ketorolac (TORADOL) injection 60 mg 02-11 14:00: 00 02-11 13:26 :00 No 60mg 60 mg, Intramuscu lar, ONCE NOW, 1 dose, On Thu02/11/23 at 0900, [facility] TAKE 5 ML BY MOUTH EVERY 6 HOURS NEEDED FOR COUGH FOR 10 DAYS 02-11 00:00: 00 Yes Vasquez Marlow TAKE 2 TABLETS BY MOUTH TODAY, THEN TAKE 1 TABLET DAILY FOR 4 DAYS 02-11 00:00: 00 Yes Vasquez Marlow proCHLORper azine 10 mg tablet 02-11 00:00: 00 11-27 00:00 :00 No [id number] 10mg Take 1 tablet by mouth every 6 (six) hours as needed for Nausea and Vomiting (N/V) (Migraine, to take together with TORADOL). [facility] acetaminoph en (TYLENOL ARTHRITIS PAIN) 650 mg CR tablet 02-11 00:00: 00 11-27 00:00 :00 No [id number] 650mg Take 1 tablet by mouth every 8 (eight) hours as needed for Pain. [facility] ketorolac 10 mg tablet 02-11 00:00: 00 06-06 00:00 :00 No [id number] 10mg Take 1 tablet by mouth every 6 (six) hours as needed for Pain (scale 4-6) or Pain (scale 7-10). [facility] OLANZAPINE 2.5MG 02-05 00:00: 00 Yes Vasquez Marlow TAKE 1 TABLET AT BEDTIME. 02-05 00:00: 00 04-01 00:00 :00 No 25 Vasquez Marlow TAKE 1 TABLET DAILY. 02-05 00:00: 00 04-01 00:00 :00 No 20 Vasquez Marlow TAKE 1 TABLET BY MOUTH TWICE A DAY NEEDED 01-26 00:00: 00 Yes Vasquez Marlow LITHIUM CARB 300MG 01-26 00:00: 00 Yes [id number] Vasquez Marlow ONDANSETRON 4MG ODT 01-14 00:00: 00 Yes Vasquez Marlow ondansetron 4 mg disintegrat ing tablet 01-14 00:00: 00 09-02 00:00 :00 No [id number] 4mg Take 1 tablet by mouth every 8 (eight) hours as needed for Nausea and Vomiting (N/V). [facility] SODIUM/POTA S MAGNESIU DULCE MARIA 2- 00:00: 00 Yes Vasquez Marlow GAVILYTE-G LEMON PK DULCE MARIA 2- 00:00: 00 Yes Vasquez Marlow SMZ/TMP DS [id number] 1- 00:00: 00 Yes Vasquez Marlow CITALOPRAM 20MG 1-03 00:00: 00 Yes Vasquez Marlow LITHIUM CARB 300MG 2021-11- 00:00: 00 Yes 300 Vasquez Marlow TAKE 1 TABLET BY MOUTH EVERY DAY IN THE MORNING 2022-1 2-19 00:00: 00 Yes Vasquez Marlow CITALOPRAM 40MG 2021-11 2-15 00:00: 00 Yes Vasquez Marlow LITHIUM CARB 300MG ER 2021-11 2- 00:00: 00 Yes Vasquez Marlow Dose Unknown 2021-11 2- 00:00: 00 Yes Vasquez Marlow MIX AND DRINK DIRECTED 2021-11 2- 00:00: 00 Yes Vasquez Marlow Dose Unknown 2021-11 2- 00:00: 00 Yes Vasquez Marlow Dose Unknown 2021-11 2- 00:00: 00 Yes Vasquez Marlow Dose Unknown 2021-11 2- 00:00: 00 Yes Vasquez Marlow Dose Unknown 2021-11 2- 00:00: 00 Yes Vasquez Marlow Dose Unknown 2021-11 2 00:00: 00 Yes Vasquez Marlow TAKE 1 TABLET IN THE MORNING ORALLY ONCE A DAY 14 DAY(S) 2021-11 2 00:00: 00 Yes Vasquez Marlow Dose Unknown 2021-11 2 00:00: 00 Yes Vasquez Marlow HYDROXYZ HCL 25MG TAB 2021-11 2- 00:00: 00 Yes Vasquez Marlow LEVOFLOXACI N 500MG TAB 2021-11 2 00:00: 00 Yes Vasquez Marlow Dose Unknown 2021-11 2 00:00: 00 Yes Vasquez Marlow TAKE 1 TABLET BY MOUTH EVERY DAY NEEDED FOR 30 DAYS 2021-11 2 00:00: 00 Yes Vasquez Marlow TAKE 1 TABLET BY MOUTH TWICE A DAY. 2021-11 2 00:00: 00 Yes Vasquez Marlow PANTOPRAZOL E [address]MG DR 2021-11 0-13 00:00: 00 Yes [id number] Vasquez Marlow VENLAFAXINE ER 37.5MG CAPSULES 8-24 00:00: 00 Yes Vasquez Marlow AZITHROMYCI N 250MG TABLETS 6-RUBEN 2021-0 8-24 00:00: 00 Yes Vasquez Marlow AZITHROMYCI N 250MG TABLETS 6-RUBEN 2021-0 8-18 00:00: 00 Yes Vasquez Marlwo SUPREP BOWEL PREP KIT 8-05 00:00: 00 Yes [id number] Vasquez Marlow VENLAFAXINE ER 37.5MG CAPSULES - 00:00: 00 Yes Vasquez Marlow AZITHROMYCI N 250MG TABLETS 6-RUBEN - 00:00: 00 Yes Vasquez Marlow Celexa 20 mg tablet - 00:00: 00 Yes 1mg Vasquez Marlow lisinopril 10 mg tablet - 00:00: 00 Yes 1mg Vasquez Marlow Immunizations Ordered Immunization Name Filled Immunization Name Date Status Comments Source Influenza, injectable, Madin [facility], preservative-free, quadrivalent Influenza, injectable, Madin [place] [facility], preservative-free, quadrivalent 2024-09-29 00:00:00 Completed Vasquez Marlow Prevnar 20 Prevnar 20 2024-05-18 00:00:00 Completed Vasquez Marlow Vital Signs Vital Name Observation Time Observation Value Comments S ource Systolic blood pressure 2024-10-25 03:16:00 138 mm[Hg] [facility] Diastolic blood pressure 2024-10-25 03:16:00 95 mm[Hg] [facility] Heart rate 2024-10-25 03:16:00 104 /min [facility] Body temperature 2024-10-25 03:16:00 37.44 [facility] Respiratory rate 2024-10-25 03:16:00 15 /min [facility] Oxygen saturation in Arterial blood by Pulse oximetry 2024-10-25 03:16:00 95 /min [facility] Body height 2024-10-25 00:55:00 177.8 cm [facility] Body weight 2024-10-25 00:55:00 110.224 kg [facility] BMI 2024-10-25 00:55:00 34.87 kg/m2 [facility] Systolic blood pressure 2024-07-03 19:00:00 130 mm[Hg] [facility] Diastolic blood pressure 2024-07-03 19:00:00 73 mm[Hg] [facility] Heart rate 2024-07-03 19:00:00 77 /min [facility] Body temperature 2024-07-03 19:00:00 36.67 [facility] Respiratory rate 2024-07-03 19:00:00 16 /min [facility] Oxygen saturation in Arterial blood by Pulse oximetry 2024-07-03 19:00:00 97 /min [facility] Body height 2024-07-03 16:53:00 177.8 cm [facility] 2024-07-03 16:53:00 113.399 kg [facility] BMI 2024-07-03 16:53:00 35.87 kg/m2 [facility] blood pressure 2024-03-30 14:49:00 136 mm[Hg] [facility] Diastolic blood pressure 2024-03-30 14:49:00 94 mm[Hg] [facility] Heart rate 2024-03-30 14:49:00 99 /min [facility] Body temperature 2024-03-30 14:49:00 37.22 [facility] Respiratory rate 2024-03-30 14:49:00 18 /min [facility] Body height 2024-03-30 14:49:00 177.8 cm [facility] Body weight 2024-03-30 14:49:00 113.399 kg [facility] BMI 2024-03-30 14:49:00 35.87 kg/m2 [facility] Oxygen saturation in Arterial blood by Pulse oximetry 2024-03-30 14:49:00 96 /min [facility] Systolic blood pressure 2024-03-15 17:31:00 162 mm[Hg] [facility] Diastolic blood pressure 2024-03-15 17:31:00 90 mm[Hg] [facility] Heart rate 2024-03-15 17:31:00 85 /min [facility] Body temperature 2024-03-15 17:31:00 36.61 [facility] Respiratory rate 2024-03-15 17:31:00 18 /min [facility] Body height 2024-03-15 17:31:00 177.8 cm [facility] Body weight 2024-03-15 17:31:00 113.399 kg [facility] BMI 2024-03-15 17:31:00 35.87 kg/m2 [facility] Oxygen saturation in Arterial blood by Pulse oximetry 2024-03-15 17:31:00 100 /min [facility] Systolic blood pressure 2024-03-04 14:00:00 136 mm[Hg] [facility] Diastolic blood pressure 2024-03-04 14:00:00 88 mm[Hg] [facility] Heart rate 2024-03-04 14:00:00 68 /min [facility] Respiratory rate 2024-03-04 14:00:00 18 /min [facility] Oxygen saturation in Arterial blood by Pulse oximetry 2024-03-04 14:00:00 93 /min [facility] Body temperature 2024-03-04 13:38:00 36.78 [facility] Body height 2024-03-04 13:38:00 177.8 cm [facility] Body weight 2024-03-04 13:38:00 112.492 kg [facility] BMI 2024-03-04 13:38:00 35.58 kg/m2 [facility] Systolic blood pressure 2024-03-02 20:07:00 138 mm[Hg] [facility] Diastolic blood pressure 2024-03-02 20:07:00 81 mm[Hg] [facility] Heart rate 2024-03-02 20:07:00 78 /min [facility] Body temperature 2024-03-02 20:07:00 37.22 [facility] Body height 2024-03-02 20:07:00 177.8 cm [facility] Body weight 2024-03-02 20:07:00 116.257 kg [facility] BMI 2024-03-02 20:07:00 36.78 kg/m2 [facility] Oxygen saturation in Arterial blood by Pulse oximetry 2024-03-02 20:07:00 95 /min [facility] Systolic blood pressure 2024-01-21 23:06:00 139 mm[Hg] [facility] Diastolic blood pressure 2024-01-21 23:06:00 96 mm[Hg] [facility] Heart rate 2024-01-21 23:06:00 110 /min [facility] Body temperature 2024-01-21 23:06:00 36.78 [facility] Respiratory rate 2024-01-21 23:06:00 18 /min [facility] Body height 2024-01-21 23:06:00 177.8 cm [facility] Body weight 2024-01-21 23:06:00 113.399 kg [facility] BMI 2024-01-21 23:06:00 35.87 kg/m2 [facility] Oxygen saturation in Arterial blood by Pulse oximetry 2024-01-21 23:06:00 97 /min [facility] Systolic blood pressure 2024-01-10 16:50:00 125 mm[Hg] [facility] Diastolic blood pressure 2024-01-10 16:50:00 88 mm[Hg] [facility] Heart rate 2024-01-10 16:50:00 86 /min [facility] Body temperature 2024-01-10 16:50:00 37.28 [facility] Respiratory rate 2024-01-10 16:50:00 16 /min [facility] Body height 2024-01-10 16:50:00 177.8 cm [facility] Body weight 2024-01-10 16:50:00 113.399 kg [facility] BMI 2024-01-10 16:50:00 35.87 kg/m2 [facility] Oxygen saturation in Arterial blood by Pulse oximetry 2024-01-10 16:50:00 96 /min [facility] Systolic blood pressure 2023-11-28 01:28:00 157 mm[Hg] [facility] Diastolic blood pressure 2023-11-28 01:28:00 96 mm[Hg] [facility] Heart rate 2023-11-28 01:28:00 89 /min [facility] Respiratory rate 2023-11-28 01:28:00 18 /min [facility] Oxygen saturation in Arterial blood by Pulse oximetry 2023-11-28 01:28:00 96 /min [facility] Body temperature 2023-11-27 21:32:00 36.83 [facility] Body height 2023-11-27 21:32:00 177.8 cm [facility] Body weight 2023-11-27 21:32:00 114.306 kg [facility] BMI 2023-11-27 21:32:00 36.16 kg/m2 [facility] Systolic blood pressure 2023-10-03 16:53:10 131 mm[Hg] [facility] Diastolic blood pressure 2023-10-03 16:53:10 70 mm[Hg] [facility] Heart rate 2023-10-03 16:53:10 81 /min [facility] Body temperature 2023-10-03 16:53:10 36.44 [facility] Respiratory rate 2023-10-03 16:53:10 16 /min [facility] Oxygen saturation in Arterial blood by Pulse oximetry 2023-10-03 16:53:10 97 /min [facility] Body height 2023-10-03 14:51:00 177.8 cm [facility] Body weight 2023-10-03 14:51:00 115.214 kg [facility] BMI 2023-10-03 14:51:00 36.45 kg/m2 [facility] Systolic blood pressure 2023-09-02 22:43:48 159 mm[Hg] [facility] Diastolic blood pressure 2023-09-02 22:43:48 91 mm[Hg] [facility] Heart rate 2023-09-02 22:43:48 79 /min [facility] Body temperature 2023-09-02 22:43:48 36.67 [facility] Respiratory rate 2023-09-02 22:43:48 16 /min [facility] Oxygen saturation in Arterial blood by Pulse oximetry 2023-09-02 22:42:00 97 /min [facility] Body height 2023-09-02 19:56:00 177.8 cm [facility] Body weight 2023-09-02 19:56:00 116.574 kg [facility] BMI 2023-09-02 19:56:00 36.88 kg/m2 [facility] Systolic blood pressure 2023-08-04 19:37:00 122 mm[Hg] [facility] Diastolic blood pressure 2023-08-04 19:37:00 85 mm[Hg] [facility] Heart rate 2023-08-04 19:37:00 110 /min [facility] Body temperature 2023-08-04 19:37:00 37.28 [facility] Respiratory rate 2023-08-04 19:37:00 20 /min [facility] Body height 2023-08-04 19:37:00 177.8 cm [facility] Body weight 2023-08-04 19:37:00 120.657 kg [facility] BMI 2023-08-04 19:37:00 38.17 kg/m2 [facility] Oxygen saturation in Arterial blood by Pulse oximetry 2023-08-04 19:37:00 96 /min [facility] Systolic blood pressure 2023-07-30 14:17:00 152 mm[Hg] [facility] Diastolic blood pressure 2023-07-30 14:17:00 94 mm[Hg] [facility] Heart rate 2023-07-30 14:17:00 85 /min [facility] Body temperature 2023-07-30 14:17:00 37.11 [facility] Respiratory rate 2023-07-30 14:17:00 16 /min [facility] Body height 2023-07-30 14:17:00 177.8 cm [facility] Body weight 2023-07-30 14:17:00 113.853 kg [facility] BMI 2023-07-30 14:17:00 36.01 kg/m2 [facility] Oxygen saturation in Arterial blood by Pulse oximetry 2023-07-30 14:17:00 98 /min [facility] Systolic blood pressure 2023-06-06 21:45:00 119 mm[Hg] [facility] Diastolic blood pressure 2023-06-06 21:45:00 81 mm[Hg] [facility] Heart rate 2023-06-06 21:45:00 74 /min [facility] Respiratory rate 2023-06-06 21:45:00 20 /min [facility] Oxygen saturation in Arterial blood by Pulse oximetry 2023-06-06 21:45:00 97 /min [facility] Body temperature 2023-06-06 18:19:00 37.22 [facility] Body height 2023-06-06 18:19:00 177.8 cm [facility] Body weight 2023-06-06 18:19:00 117.935 kg [facility] BMI 2023-06-06 18:19:00 37.31 kg/m2 [facility] Systolic blood pressure 2023-03-25 22:25:00 129 mm[Hg] [facility] Diastolic blood pressure 2023-03-25 22:25:00 79 mm[Hg] [facility] Heart rate 2023-03-25 22:25:00 74 /min [facility] Respiratory rate 2023-03-25 22:25:00 14 /min [facility] Oxygen saturation in Arterial blood by Pulse oximetry 2023-03-25 22:25:00 100 /min [facility] Body temperature 2023-03-25 20:45:00 36.61 [facility] Body height 2023-03-25 20:45:00 177.8 cm [facility] Body weight 2023-03-25 20:45:00 109.317 kg [facility] BMI 2023-03-25 20:45:00 34.58 kg/m2 [facility] Systolic blood pressure 2023-02-11 13:00:00 129 mm[Hg] [facility] Diastolic blood pressure 2023-02-11 13:00:00 89 mm[Hg] [facility] o [facility] Heart rate 2023-02-11 13:00:00 77 /min [facility] Body temperature 2023-02-11 13:00:00 37.11 [facility] Respiratory rate 2023-02-11 13:00:00 18 /min [facility] Body height 2023-02-11 13:00:00 177.8 cm [facility] Body weight 2023-02-11 13:00:00 110.678 kg [facility] BMI 2023-02-11 13:00:00 35.01 kg/m2 [facility] Oxygen saturation in Arterial blood by Pulse oximetry 2023-02-11 13:00:00 99 /min [facility] Systolic blood pressure 2023-01-14 20:04:00 123 mm[Hg] [facility] Diastolic blood pressure 2023-01-14 20:04:00 84 mm[Hg] [facility] Heart rate 2023-01-14 20:04:00 86 /min [facility] Body temperature 2023-01-14 20:04:00 37 [facility] Respiratory rate 2023-01-14 20:04:00 18 /min [facility] Body height 2023-01-14 20:04:00 177.8 cm [facility] Body weight 2023-01-14 20:04:00 103.874 kg [facility] BMI 2023-01-14 20:04:00 32.86 kg/m2 [facility] Oxygen saturation in Arterial blood by Pulse oximetry 2023-01-14 20:04:00 97 /min [facility] BP Systolic 2024-10-04 09:30:00 129 mm[Hg] Jaime Marlow BP Diastolic 2024-10-04 09:30:00 90 mm[Hg] Austyn Marlow Weight Measured 2024-10-04 09:30:00 253.60 pounds Vasquez Marlow Height Measured 2024-10-04 09:30:00 70.00 inches [facility] [place] Body Temperature 2024-10-04 09:30:00 98.20 degrees [facility]quez [facility] [place] Heart Rate 2024-10-04 09:30:00 92.00 /min Geena en F [place] Respiratory Rate 2024-10-04 09:30:00 18.00 /min Vasquez F [place] BP Systolic 2024-10-03 17:57:00 129 mm[Hg] Step hen F [place] BP Diastolic 2024-10-03 17:57:00 90 mm[Hg] Austyn phen F [place] Weight Measured 2024-10-03 17:57:00 253.60 pounds Vasquez F [place] Height Measured 2024-10-03 17:57:00 70.00 inches Vasquez [facility] [place] Body Temperature 2024-10-03 17:57:00 98.20 degrees Vasquez [facility] [place] Heart Rate 2024-10-03 17:57:00 92.00 /min Geena en [facility] [place] Respiratory Rate 2024-10-03 17:57:00 18.00 /min Vasquez F [place] BP Systolic 2024-09-29 13:28:00 132 mm[Hg] Step hen [facility] [place] BP Diastolic 2024-09-29 13:28:00 81 mm[Hg] Austyn phen [facility] [place] Weight Measured 2024-09-29 13:28:00 250.30 pounds Vasquez F [place] Height Measured 2024-09-29 13:28:00 70.00 inches Vasquez [facility] [place] Body Temperature 2024-09-29 13:28:00 97.90 degrees Vasquez F [place] Heart Rate 2024-09-29 13:28:00 86.00 /min Geena en [facility] [place] Respiratory Rate 2024-09-29 13:28:00 18.00 /min Vasquez F [place] BP Systolic 2024-06-08 13:41:00 135 mm[Hg] Step hen [facility] [place] BP Diastolic 2024-06-08 13:41:00 87 mm[Hg] Austyn phen [facility] [place] Weight Measured 2024-06-08 13:41:00 251.60 pounds Vasquez F [place] Height Measured 2024-06-08 13:41:00 70.00 inches Vasquez [facility] [place] Body Temperature 2024-06-08 13:41:00 97.90 degrees Vasquez F [place] Heart Rate 2024-06-08 13:41:00 85.00 /min Ge[facility] en [facility] [place] Respiratory Rate 2024-06-08 13:41:00 18.00 /min Vasquez F [place] BP Systolic 2024-05-18 15:56:00 114 mm[Hg] Step hen [facility] [place] BP Diastolic 2024-05-18 15:56:00 81 mm[Hg] Austyn phen [facility] [place] Weight Measured 2024-05-18 15:56:00 251.80 pounds Vasquez F [place] Height Measured 2024-05-18 15:56:00 70.00 inches Vasquez [facility] [place] Body Temperature 2024-05-18 15:56:00 98.10 degrees Vasquez F [place] Heart Rate 2024-05-18 15:56:00 91.00 /min Geena en [facility] [place] Respiratory Rate 2024-05-18 15:56:00 Vasquez F [place] BP Systolic 2024-05-11 11:10:00 123 mm[Hg] Step hen [facility] [place] BP Diastolic 2024-05-11 11:10:00 90 mm[Hg] Austyn phen [facility] [place] Weight Measured 2024-05-11 11:10:00 252.80 pounds Vasquez F [place] Height Measured 2024-05-11 11:10:00 70.00 inches Vasquez [facility] [place] Body Temperature 2024-05-11 11:10:00 98.20 degrees Vasquez F [place] Heart Rate 2024-05-11 11:10:00 90.00 /min Geena en [facility] [place] Respiratory Rate 2024-05-11 11:10:00 18.00 /min Vasquez F [place] BP Systolic 2024-05-02 13:42:00 118 mm[Hg] Step hen [facility] [place] BP Diastolic 2024-05-02 13:42:00 86 mm[Hg] Austyn phen [facility] [place] Weight Measured 2024-05-02 13:42:00 255.20 pounds Vasquez F [place] Height Measured 2024-05-02 13:42:00 70.00 inches Vasquez [facility] [place] Body Temperature 2024-05-02 13:42:00 98.00 degrees Vasquez F [place] Heart Rate 2024-05-02 13:42:00 103.00 /min Step hen [facility] [place] Respiratory Rate 2024-05-02 13:42:00 18.00 /min Vasquez F [place] BP Systolic 2024-03-30 14:33:00 127 mm[Hg] Step hen [facility] [place] BP Diastolic 2024-03-30 14:33:00 70 mm[Hg] Austyn phen [facility] [place] Weight Measured 2024-03-30 14:33:00 254.80 pounds Vasquez F [place] Height Measured 2024-03-30 14:33:00 70.00 inches Vasquez [facility] [place] Body Temperature 2024-03-30 14:33:00 98.30 degrees Vasquez F [place] Heart Rate 2024-03-30 14:33:00 87.00 /min Geena en [facility] [place] Respiratory Rate 2024-03-30 14:33:00 Vasquez F [place] BP Systolic 2024-03-18 15:22:00 137 mm[Hg] Step hen [facility] [place] BP Diastolic 2024-03-18 15:22:00 98 mm[Hg] Austyn phen [facility] [place] Weight Measured 2024-03-18 15:22:00 251.40 pounds Vasquez F [place] Height Measured 2024-03-18 15:22:00 70.00 inches Vasquez [facility] [place] Body Temperature 2024-03-18 15:22:00 98.20 degrees Vasquez F [place] Heart Rate 2024-03-18 15:22:00 83.00 /min Geena en [facility] [place] Respiratory Rate 2024-03-18 15:22:00 18.00 /min Vasquez F [place] BP Systolic 2024-02-18 13:59:00 132 mm[Hg] Step hen [facility] [place] BP Diastolic 2024-02-18 13:59:00 93 mm[Hg] Austyn phen [facility] [place] Weight Measured 2024-02-18 13:59:00 257.00 pounds Vasquez F [place] Height Measured 2024-02-18 13:59:00 70.00 inches Vasquez [facility] [place] Body Temperature 2024-02-18 13:59:00 Vasquez F [place] Heart Rate 2024-02-18 13:59:00 86.00 /min Geena en [facility] [place] Respiratory Rate 2024-02-18 13:59:00 18.00 /min Vasquez F [place] BP Systolic 2024-01-13 11:30:00 130 mm[Hg] Step hen [facility] [place] BP Diastolic 2024-01-13 11:30:00 88 mm[Hg] Austyn phen [facility] [place] Weight Measured 2024-01-13 11:30:00 Vasquez F [place] Height Measured 2024-01-13 11:30:00 69.69 inches Vasquez [facility] [place] Body Temperature 2024-01-13 11:30:00 98.10 degrees Vasquez F [place] Heart Rate 2024-01-13 11:30:00 90.00 /min Geena en [facility] [place] Respiratory Rate 2024-01-13 11:30:00 Vasquez F [place] BP Systolic 2023-12-16 13:56:00 162 mm[Hg] Step hen [facility] [place] BP Diastolic 2023-12-16 13:56:00 101 mm[Hg] Austyn phen [facility] [place] Weight Measured 2023-12-16 13:56:00 257.20 pounds Vasquez F [place] Height Measured 2023-12-16 13:56:00 69.69 inches Vasquez [facility] [place] Body Temperature 2023-12-16 13:56:00 97.90 degrees Vasquez [facility] [place] Heart Rate 2023-12-16 13:56:00 Geena en [facility] [place] Respiratory Rate 2023-12-16 13:56:00 Vasquez F [place] BP Systolic 2023-11-18 14:30:00 151 mm[Hg] Step hen [facility] [place] BP Diastolic 2023-11-18 14:30:00 92 mm[Hg] Austyn phen [facility] [place] Weight Measured 2023-11-18 14:30:00 253.40 pounds Vasquez [facility] [place] Height Measured 2023-11-18 14:30:00 69.69 inches Vasquez [facility] [place] Body Temperature 2023-11-18 14:30:00 97.70 degrees Vasquez [facility] [place] Heart Rate 2023-11-18 14:30:00 84.00 /min Geena en [facility] [place] Respiratory Rate 2023-11-18 14:30:00 Vasquez F [place] BP Systolic 2023-11-04 13:17:00 148 mm[Hg] Step hen [facility] [place] BP Diastolic 2023-11-04 13:17:00 85 mm[Hg] Austyn phen [facility] [place] Weight Measured 2023-11-04 13:17:00 253.20 pounds Vasquez [facility] [place] Height Measured 2023-11-04 13:17:00 69.69 inches Vasquez [facility] [place] Body Temperature 2023-11-04 13:17:00 97.30 degrees Vasquez [facility] [place] Heart Rate 2023-11-04 13:17:00 88.00 /min Ge[facility] [place] Respiratory Rate 2023-11-04 13:17:00 Vasquezjocelyn Marlow BP Systolic 2021-12-11 14:29:00 112 mm[Hg] Step hen Cherry Marlow BP Diastolic 2021-12-11 14:29:00 74 mm[Hg] Austyn phen Cherry Marlow Weight Measured 2021-12-11 14:29:00 244.20 pounds Vasquez Marlow Height Measured 2021-12-11 14:29:00 69.69 inches Vasquez Marlow Body Temperature 2021-12-11 14:29:00 98.40 degrees Vasquez Marlow Heart Rate 2021-12-11 14:29:00 86.00 /min Geena en [facility] [place] Respiratory Rate 2021-12-11 14:29:00 16.00 /min Vasquez Marlow BP Systolic 2021-12-03 19:03:00 Jaime Marlow BP Diastolic 2021-12-03 19:03:00 Austyn phen Cherry Marlow Weight Measured 2021-12-03 19:03:00 230.00 pounds Vasquez Marlow Height Measured 2021-12-03 19:03:00 69.69 inches Vasquez Marlow Body Temperature 2021-12-03 19:03:00 Vasquez Marlow Heart Rate 2021-12-03 19:03:00 Geena en Cherry Marlow Respiratory Rate 2021-12-03 19:03:00 Vasquez Marlow Procedures Procedure Date / Time Performed Performing Clinician Source RAPID STREP SCREEN FOR GROUP A 2024-10-25 00:58:00 Divya Jackson [facility] INFLUENZA A/B RSV COVID NAAT 2024-10-25 00:58:00 Divya Jackson [facility] CT ABDOMEN PELVIS WO CONTRAST 2024-07-03 17:36:00 Kateryna Fu [facility] COMP. METABOLIC PANEL (18680) 2024-07-03 17:14:00 Kateryna Fu [facility] CBC WITH DIFF 2024-07-03 17:14:00 [facility]24-[facility]-03 17:14:00 [facility]RE[facility] SCREEN FOR GROUP A 2024-03-15 18:59:00 Divya Trammell [facility] RAPID INFLUENZA A/B 2024-03-15 18:59:00 Divya Trammell [facility] COVID-19 (ID NOW RAPID TESTING) 2024-03-15 18:59:00 Divya Trammell [facility] CT ABDOMEN PELVIS WO CONTRAST 2024-03-04 14:52:30 Graeme Collins [facility] RAPID INFLUENZA A/B 2024-03-04 14:27:00 Marybel Collins [facility] COVID-19 (ID NOW RAPID TESTING) 2024-03-04 14:27:00 Graeme Collins [facility] LIPASE 2024-03-04 14:24:00 Graeme Collins [facility] CBC WITH DIFF 2024-03-04 14:24:00 Graeme Collins [facility] URINALYSIS 2024-03-04 14:24:00 Gareme Collins [facility] CONSENT/REFUSAL FOR DIAGNOSIS AND TREATMENT 2024-01-21 22:53:40 Doctor Unassigned, [place] [employer] [facility] CONSENT/REFUSAL FOR DIAGNOSIS AND TREATMENT 2024-01-10 16:46:57 Doctor Unassigned, [place] [employer] [facility] CONSENT/REFUSAL FOR DIAGNOSIS AND TREATMENT 2023-11-27 21:18:30 Doctor Unassigned, [place] [employer] [facility] RAPID INFLUENZA A/B 2023-10-03 15:13:00 Leila Bagley [facility] COVID-19 (ID NOW RAPID TESTING) 2023-10-03 15:13:00 Johnnie Bagley [facility] ASSIGNMENT OF BENEFITS 2023-10-03 15:08:40 Docto r Unassigned, [place] [employer] [facility] CONSENT/REFUSAL FOR DIAGNOSIS AND TREATMENT 2023-10-03 14:48:14 Doctor Unassigned, [place] [employer] [facility] REFERRAL- REQUEST/RESPONSE 2023-09-10 05:01:00 Doctor Unassigned, [place] [employer] [facility] ASSIGNMENT OF BENEFITS 2023-09-02 22:06:24 Docto r Unassigned, [place] [employer] [facility] CONSENT/REFUSAL FOR DIAGNOSIS AND TREATMENT 2023-09-02 19:41:32 Doctor Unassigned, [place] [employer] [facility] ASSIGNMENT OF BENEFITS 2023-07-30 16:01:39 Docto r Unassigned, [place] [employer] [facility] HEPATIC FUNCTION PANEL (70619) (ALB,T.PRO,BILI T,BU/BC,ALT,AST,ALK PHOS) 2023-07-30 15:23:00 Azalea Queen [facility] BASIC METABOLIC PANEL (NA, K, CL, CO2, GLUCOSE, BUN, CREATININE, CA) 2023-07-30 15:23:00 Azalea Queen [facility] CBC WITH DIFF 2023-07-30 15:23:00 [facility] CONSENT/REFUSAL FOR DIAGNOSIS AND TREATMENT 2023-07-30 14:10:26 Doctor Unassigned, [place] [employer] [facility] ASSIGNMENT OF BENEFITS 2023-06-06 21:50:45 Docto r Unassigned, [place] [employer] [facility] FREE T4 2023-06-06 18:45:[address] [facility] COMP. METABOLIC PANEL (55857) 2023-06-06 18:45:00 Graeme Collins [facility] CBC WITH DIFF 2023-06-06 18:45:00 Graeme Collins [facility] URINALYSIS 2023-06-06 18:45:[address] [facility] N-TERMINAL PRO-BNP 2023-06-06 18:45:00 Graeme Collins [facility] LACTIC ACID WHOLE BLOOD 2023-06-06 18:45:00 Do christ Collins [facility] URINE DRUG (IMMUNOASSAY) - COMPREHENSIVE DRUG SCREEN W/O REFLEX 2023-06-06 18:45:00 Graeme Collins [facility] CREATINE KINASE 2023-06-06 18:45:00 [facility] 2023-06-06 18:45:[address] [facility] CONSENT/REFUSAL FOR DIAGNOSIS AND TREATMENT 2023-06-06 18:08:02 Doctor Unassigned, [place] [employer] [facility] LIPASE 2023-03-25 22:17:[address] [facility] MAGNESIUM 2023-03-25 22:17:00 [facility] TROPONIN I 2023-03-25 22:17:00 Juaquin Boswell [facility] COMP. METABOLIC PANEL ([id number]) 2023-03-25 22:17:00 Juaquin Boswell [facility] LITHIUM 2023-03-25 22:17:00 Singer Juaquin [facility] CBC WITH DIFF 2023-03-25 22:17:00 Singer Juaquin [facility] N-TERMINAL PRO-BNP 2023-03-25 22:17:00 Singer [facility] CONSENT/REFUSAL FOR DIAGNOSIS AND TREATMENT 2023-03-25 20:27:32 Doctor Unassigned, [place] [employer] [facility] RAPID STREP SCREEN FOR GROUP A 2023-02-11 13:29:00 Johnnie Bagley [facility] RAPID INFLUENZA A/B 2023-02-11 13:29:00 Leila Bagley [facility] COVID-19 (ID NOW RAPID TESTING) 2023-02-11 13:29:00 Johnnie Bagley [facility] CONSENT/REFUSAL FOR DIAGNOSIS AND TREATMENT 2023-02-11 12:49:06 Doctor Unassigned, [place] [employer] [facility] RAPID STREP SCREEN FOR GROUP A 2023-01-14 20:34:00 Divya Trammell [facility] RAPID INFLUENZA A/B 2023-01-14 20:34:00 Divya Trammell [facility] NOTICE OF PRIVACY PRACTICES 2023-01-14 19:53:37 Doctor Unassigned, [place] [employer] [facility] CONSENT/REFUSAL FOR DIAGNOSIS AND TREATMENT 2023-01-14 19:53:21 Doctor Unassigned, [place] [employer] [facility] Encounters Start Date/Time End Date/Time Encounter Type Admission Type Attending [facility] Care Facility Care Department Encounter ID Source 2024-05-10 19:10:31 Outpatient MAGDY JARQUIN [facility] [id number] [facility] 2024-12-01 15:00:13 2024-12-01 15:00:13 Outpatient [facility] [id number] Vasquez Marlow 2024-11-14 08:31:37 2024-11-14 08:31:37 Outpatient [facility] [id number] Vasquez Marlow 2024-10-24 18:56:00 2024-10-24 21:20:00 Emergency X LUIS FELIPE FRY [facility] [id number] [facility] 2024-10-24 18:56:00 2024-10-24 21:20:00 Emergency Divya Jackson Roxanne [facility] 1.2.840.114 350.1.13.10 4.2.7.2.686 [id number] [facility] 2024-10-05 11:18:07 2024-10-05 11:18:07 Outpatient [facility] [id number] Vasquez Marlow 2024-10-04 08:43:00 2024-10-04 08:43:00 Outpatient [facility] [id number] Vasquez Marlow 2024-10-03 17:53:23 2024-10-03 17:53:23 Outpatient [facility] [id number] Vasquez Marlow 2024-10-03 00:00:00 2024-10-03 00:00:00 Outpatient Visit [facility] [id number] Vasquez Marlow 2024-09-29 13:16:15 2024-09-29 13:16:15 Outpatient [facility] [id number] Vasquez Marlow 2024-07-16 14:48:43 2024-07-16 14:48:43 Outpatient [facility] [id number] Vasquez Marlow 2024-07-03 11:55:00 2024-07-03 14:18:00 Emergency X KATERYNA FU SANDRA [facility] [id number] [facility] 2024-07-03 11:55:00 2024-07-03 14:18:00 Emergency Kateryna Fu [facility] 1..840.114 350.1.13.10 4.2.7.2.686 [id number] [facility] 2024-05-18 00:00:00 2024-06-18 18:17:44 Patient Secure Msg Doctor Unassigned, [place] [facility] 1..840.114 350.1.13.10 4.2.7.2.686 [id number] [facility] 2024-06-17 08:22:49 2024-06-17 08:22:49 Outpatient [facility] [id number] Vasquez Marlow 2024-06-08 13:33:29 2024-06-08 13:33:29 Outpatient [facility] [id number] Vasquez Marlow 2024-06-08 00:00:00 2024-06-08 00:00:00 Outpatient Visit [facility] [id number] Vasquez Marlow 2024-05-20 15:50:36 2024-05-20 15:50:36 Outpatient [facility] [id number] Vasquez Marlow 2024-05-18 15:49:32 2024-05-18 15:49:32 Outpatient [facility] [id number] Vasquez Marlow 2024-05-18 00:00:00 2024-05-18 11:42:13 Telephone Magdy Kerns [facility] 1..840.114 350.1.13.10 4.2.7.2.686 [id number] [facility] 2024-05-18 00:00:00 2024-05-18 00:00:00 Outpatient Visit [facility] [id number] Vas[facility] Marlow 2024-05-16 12:18:10 2024-05-16 23:59:00 Outpatient R RADIOLOGY [facility] [id number] [facility] 2024-05-16 12:18:10 2024-05-16 23:59:00 Hospital Encounter Radiology [facility] 1.2.840.114 350.1.13.10 4.2.7.2.686 [id number] [facility] 2024-05-11 11:07:05 2024-05-11 11:07:05 Outpatient [facility] [id number] Vasquez Marlow 2024-05-11 00:00:00 2024-05-11 00:00:00 Outpatient Visit [facility] [id number] Vasquez Marlow 2024-05-02 13:37:02 2024-05-02 13:37:02 Outpatient [facility] [id number] Vasquez Marlow 2024-05-02 00:00:00 2024-05-02 00:00:00 Outpatient Visit [facility] [id number] Vasquez Marlow 2024-03-30 14:30:42 2024-03-30 14:30:42 Outpatient [facility] [id number] Vasquez Marlow 2024-03-30 09:50:00 2024-03-30 11:44:00 Emergency X XANDER, K [facility] [id number] [facility] 2024-03-30 09:50:00 2024-03-30 11:44:00 Emergency Xander K Randi [facility] 1.2.840.114 350.1.13.10 4.2.7.2.686 [id number] [facility] 2024-03-30 00:00:00 2024-03-30 00:00:00 Outpatient Visit [facility] [id number] Vasquez Marlow 2024-03-23 00:00:00 2024-03-23 00:00:00 Letter (Out) Campaigns, Generic Provider [facility] 1.20.114 350.1.13.10 4.2.7.2.686 [id number] [facility] 2024-03-18 16:01:10 2024-03-18 16:01:10 Outpatient [facility] [id number] Vasquez Marlow 2024-03-15 12:32:00 2024-03-15 15:33:00 Emergency X Divya TRAMMELL [facility] [id number] [facility] 2024-03-15 12:32:00 2024-03-15 15:33:00 Emergency Divya Trammell [facility] 1.0.114 350.1.13.10 4.2.7.2.686 [id number] [facility] 2024-03-04 08:40:00 2024-03-04 12:00:00 Emergency X GRAEME COLLINS [facility] [id number] [facility] 2024-03-04 08:40:00 2024-03-04 12:00:00 Emergency Graeme Collins [facility] 1.0.114 350.1.13.10 4.2.7.2.686 [id number] [facility] 2024-03-02 15:30:00 2024-03-02 16:03:39 Outpatient R EUNICE ESCOBEDO [facility] [id number] [facility] 2024-03-02 15:30:00 2024-03-02 16:03:39 Office Visit Eunice Escobedo [facility] 1..114 350.1.13.10 4.2.7.2.686 [id number] [facility] 2024-02-18 13:26:17 2024-02-18 13:26:17 Outpatient [facility] [id number] Vasquez Marlow 2024-01-22 13:00:00 2024-01-22 13:00:00 Outpatient EUNICE HUGHES [facility] [id number] [facility] 2024-01-21 17:07:00 2024-01-21 18:10:00 Emergency X TKAMBERLY [facility] [id number] [facility] 2024-01-21 17:07:00 2024-01-21 18:10:00 Emergency Amberly Frey [facility] 1.2.840.114 350.1.13.10 4.2.7.2.686 [id number] [facility] 2024-01-19 10:43:45 2024-01-19 10:43:45 Outpatient [facility] [id number] Vasquez Marlow 2024-01-13 11:30:26 2024-01-13 11:30:26 Outpatient [facility] [id number] Vasquez Marlow 2024-01-10 10:52:00 2024-01-10 13:18:00 Emergency X AZALEA QUEEN [facility] [id number] [facility] 2024-01-10 10:52:00 2024-01-10 13:18:00 Emergency Azalea Queen [facility] 1.2.840.114 350.1.13.10 4.2.7.2.686 [id number] [facility] 2023-12-02 10:45:00 2023-12-02 10:45:00 Outpatient ORLANDO KIMBROUGH [facility] [id number] [facility] 2023-11-27 15:33:00 2023-11-27 19:36:00 Emergency X DIVYA JACKSON [facility] [id number] [facility] 2023-11-27 15:33:00 2023-11-27 19:36:00 Emergency Drever, Divya G [facility] 1.2.840.114 350.1.13.10 4.2.7.2.686 [id number] [facility] 2023-11-18 14:13:43 2023-11-18 14:13:43 Outpatient [facility] [id number] Vasquez Marlow 2023-11-04 13:36:51 2023-11-04 13:36:51 Outpatient [facility] [id number] Vasquez Marlow 2023-10-03 08:54:00 2023-10-03 10:58:00 Emergency X JOHNNIE BAGLEY [facility] [id number] [facility] 2023-10-03 08:54:00 2023-10-03 10:58:00 Emergency Divya Trammell [facility] 1.2.840.114 350.1.13.10 4.2.7.2.686 [id number] [facility] 2023-09-10 00:00:00 2023-09-10 00:00:00 Orders Only Doctor Unassigned, [place] [employer] [facility] 1.2.840.114 350.1.13.10 4.2.7.2.686 [id number] [facility] 2023-09-02 14:57:00 2023-09-02 18:09:00 Emergency X FLORIAN LEMUS [facility] [id number] [facility] 2023-09-02 14:57:00 2023-09-02 18:09:00 Emergency Florian Lemus [facility] 1.2.840.114 350.1.13.10 4.2.7.2.686 [id number] [facility] 2023-08-04 14:45:00 2023-08-04 14:56:22 Outpatient BILL LOWRY [facility] [id number] [facility] 2023-08-04 14:45:00 2023-08-04 14:56:22 Urgent Care Bill Rowe Unknown, Attending [facility] 1.2.840.114 350.1.13.10 4.2.7.2.686 [id number] [facility] 2023-07-30 09:19:00 2023-07-30 12:06:00 Emergency X AZALEA QUEEN [facility] [id number] [facility] 2023-07-30 09:19:00 2023-07-30 12:06:00 Emergency Azalea Queen [facility] 1.2.840.114 350.1.13.10 4.2.7.2.686 [id number] [facility] 2023-06-06 13:21:00 2023-06-06 17:15:00 Emergency X GRAEME COLLINS [facility] [id number] [facility] 2023-06-06 13:21:00 2023-06-06 17:15:00 Emergency Dennis Graeme [facility] 1.2.840.114 350.1.13.10 4.2.7.2.686 [id number] [facility] 2023-05-22 09:38:51 2023-05-22 09:38:51 Outpatient SFA [facility] [id number] Vasquez Marlow 2023-04-23 11:57:14 2023-04-23 11:57:14 Outpatient SFA [facility] [id number] Vasquez Marlow 2023-04-21 10:19:29 2023-04-21 10:19:29 Outpatient [facility] [id number] Vasquez Marlow 2023-03-25 15:46:00 2023-03-25 18:47:00 Emergency X JUAQUIN BOSWELL [facility] [id number] [facility] 2023-03-25 15:46:00 2023-03-25 18:47:00 Emergency Juaquin Boswell [facility] 1.2.840.114 350.1.13.10 4.2.7.2.686 [id number] [facility] 2023-02-25 08:00:00 2023-02-25 09:00:00 Outpatient Misty Anaya [facility] [id number] 2023-02-11 08:01:00 2023-02-11 10:26:00 Emergency X JOHNNIE BAGLEY [facility] [id number] [facility] 2023-02-11 08:01:00 2023-02-11 10:26:00 Emergency Johnnie Bagley [facility] 1.2.840.114 350.1.13.10 4.2.7.2.686 [id number] [facility] 2023-02-06 09:14:32 2023-02-06 09:14:32 Outpatient [facility] [id number] Vasquez Marlow 2023-02-04 21:00:00 2023-02-04 22:00:00 CAV Gay Hilly 2.16.840. [id number] 2.16.840.1. [id number] [facility] 2023-01-26 00:00:00 2023-01-26 00:00:00 Outpatient Conroy_R DMG [facility] [id number] [facility] 2023-01-26 00:00:00 2023-01-26 00:00:00 Outpatient Conroy_R DMG DM [id number] [facility] 2023-01-14 14:07:00 2023-01-14 15:40:00 Emergency Xander Divya Randi [facility] 1.2.840.114 350.1.13.10 4.2.7.2.686 [id number] [facility] 2023-01-14 14:07:00 2023-01-14 15:40:00 Emergency X Divya TRAMMELL [facility] [id number] [facility] 2022-12-30 00:00:00 2022-12-30 00:00:00 Outpatient DMG DMG [id number] [facility] 2022-12-19 00:00:00 2022-12-19 00:00:00 Outpatient DMG DMG [id number] [facility] 2022-12-12 05:30:00 2022-12-12 10:50:00 Outpatient FATUMA Carpenter Misty [facility] [id number] [facility] 2022-10-03 00:00:00 2022-10-03 00:00:00 Outpatient DMG DMG [id number] [facility] 2022-10-03 00:00:00 2022-10-03 00:00:00 Outpatient DMG DMG [id number] [facility] 2022-10-03 00:00:00 2022-10-03 00:00:00 Outpatient DMG DMG [id number] [facility] 2022-09-26 00:00:00 2022-09-26 00:00:00 Outpatient DMG DMG [id number] [facility] 2022-09-16 00:00:00 2022-09-16 00:00:00 Outpatient DMG DMG [id number] [facility] 2022-07-29 00:00:00 2022-07-29 00:00:00 Outpatient DMG DMG [id number] [facility] 2021-10-29 10:22:00 2021-10-29 11:35:00 Emergency EM Yoan Lockett [facility] AERS [id number] [facility] Results Test Description Test Time Test Comments Results Result Comments Source CT ABDOMEN PELVIS WO CONTRAST 2024-06 17:56:5 5 EXAM: CT ABDOMEN PELVIS WO CONTRAST 07/03/2024 12:21 PM HISTORY: 59 years-old Male with Flank pain, kidney stone suspected left flank pain . COMPARISON: 03/04/2024. TECHNIQUE: Contiguous axial imaging from the level of the lung basesthrough the proximal thighs was performed without the intravenousadministration of contrast. Corresponding coronal and sagittal MPRreconstructions were obtained. ?Auto mA and/or iterative reconstructionwere used to reduce radiation dose. FINDINGS:Limited evaluation of abdominal and pelvic organs due to lack ofintravenous contrast. LOWER THORAX: The lungs bases are clear. No pleural or pericardialeffusions are visualized. LIVER: The liver remains mildly enlarged measuring 19.8 cm in length. Nofocal hepatic lesion is seen within the limits of a noncontrast CT. GALLBLADDER AND BILIARY TREE: The gallbladder is normally distended. Thereis no intra or extrahepatic biliary ductal dilation. SPLEEN: Unremarkable. PANCREAS: Normal unenhanced CT appearance. ADRENAL GLANDS: No contour deforming adrenal nodules are seen. KIDNEYS: No nephrolithiasis or hydronephrosis is seen. Unchanged 3.3 cmcyst in the right kidney. PERITONEUM AND RETROPERITONEUM: No free air or free fluid. LYMPH NODES: Lymph nodes in the retroperitoneal, mesenteric, and iliacareas are not enlarged. GI TRACT: A few scattered diverticula in the colon. The appendix is mildlyprominent without inflammatory change, which is stable and may be normalfor the patient. PELVIS/BLADDER: The bladder is collapsed which limits evaluation. Prostategland is not significantly enlarged. VESSELS: Unremarkable. BONES AND SOFT TISSUES: No suspicious lytic or sclerotic bony lesions.Degenerative change involving the spine is present. Small fat-containingsupraumbilical /umbilical hernia is stable. Tiny/small fat-containinginguinal hernias. [facility] [id number] 17:34:08* Test Item Value Reference Range Interpretation Comme nts WBC (test code = 6690-2) 10.04 4.20-10.70 RBC (test code = 789-8) 4.84 4.26-5.52 HGB (test code = 718-7) 13.3 g/dL 12.2-16.4 HCT (test code = 4544-3) 41.2 % 38.4-49.3 MCV (test code = 787-2) 85.1 fL 81.7-95.6 MCH (test code = 785-6) 27.5 pg 26.1-32.7 MCHC (test code = 786-4) 32.3 g/dL 31.2-35.0 RDW-SD (test code = 01409-2) 41.1 fL 38.5-51.6 RDW-CV (test code = 788-0) 13.2 % 12.1-15.4 PLT (test code = 777-3) 236 150-328 MPV (test code = 44745-0) 9.3 fL 9.8-13.0 L NRBC/100 WBC (test code = 0881136473) 0.0 0.0-10.0 NRBC x10^3 (test code = 2991977131) See_Comment [Automated messa ge] The system which generated this result transmitted reference range: 10*3/?L. The reference range was not used to interpret this result as normal/abnormal. GRAN MAT (NEUT) % (test code = 770-8) 70.4 % IMM GRAN % (test code = 4886099726) 0.50 % LYMPH % (test code = 736-9) 21.2 % MONO % (test code = 5905-5) 4.9 % EOS % (test code = 713-8) 2.6 % BASO % (test code = 706-2) 0.4 % GRAN MAT x10^3(ANC) (test code = 0396926110) 7.07 10*3/uL 1.99-6.95 H IMM GRAN x10^3 (test code = 9569023359) 0.05 10*3/uL 0.00-0.06 LYMPH x10^3 (test code = 731-0) 2.13 10*3/uL 1.09-3.23 MONO x10^3 (test code = 742-7) 0.49 10*3/uL 0.36-1.02 EOS x10^3 (test code = 711-2) 0.26 10*3/uL 0.06-0.53 BASO x10^3 (test code = 704-7) 0.04 10*3/uL 0.01-0.09 Lab Interpretation (test code = 05518-9) Abnormal [facility], [id number] 04:57:14* Test Item Value Reference Range Interpretation Comme nts PSA, TOTAL (test code = 2606) 1.42 NG/ML <=4.00 NOTE: Methodolog y is Shira Emilie Electrochemiluminescence Immunoassay traceable to WHO reference standard 96/760. HEMOGLOBIN [id number] 03:29:54* Test Item Value Reference Range Interpretation Comme nts HEMOGLOBIN A1c (test code = 42398) 5.7 % 4.2-5.6 H [employer] GUIDELINES FOR HGB A1C: PREDIABETES/INCREASED RISK . . . . . . . 5.7-6.4% DIAGNOSIS OF DIABETES . . . . . . . . . >=6.5% WITH CONFIRMATION OR APPROPRIATE SYMPTOMS NOTE: ASSAY MAY BE AFFECTED BY HEMOGLOBINOPATHIES (SICKLE CELL ANEMIA, S-C DISEASE, OTHERS) OR ARTIFICIALLY LOWERED BY DECREASED RED CELL SURVIVAL (HEMOLYTIC ANEMIAS, BLOOD LOSS, ETC.). CONSIDER ALTERNATE TESTING OR LABORATORY CONSULTATION. UNLESS OTHERWISE INDICATED, ALL TESTING PERFORMED AT [facility] [address] [place] [address] LOOM FIXER APPRENTICE: SAY HIGH M.D. CLIA NUMBER [id number] [facility] [place]. [id number] PSA, [id number] 00:00:00* Test Item Value Reference Range Interpretation Comme nts PSA, TOTAL (test code = 2606) 1.42 NG/ML Vasquez MarlowHEMOGLOBIN [id number] 00:00:00* Test Item Value Reference Range Interpretation Comme nts HEMOGLOBIN A1c (test code = 18964) 5.7 % Vasquez Castillo, [id number] 00:00:00* Test Item Value Reference Range Interpretation Comme nts PSA, TOTAL (test code = 2606) 1.42 NG/ML Vasquez MarlowHEMOGLOBIN [id number] 00:00:00* Test Item Value Reference Range Interpretation Comme nts HEMOGLOBIN A1c (test code = 18255) 5.7 % Vasquez NavarroA, [id number] 00:00:00* Test Item Value Reference Range Interpretation Comme nts PSA, TOTAL (test code = 2606) 1.42 NG/ML Vasquez MarlowHEMOGLOBIN [id number] 00:00:00* Test Item Value Reference Range Interpretation Comme nts HEMOGLOBIN A1c (test code = 07520) 5.7 % Vasquez MarlowPSA, [id number] 00:00:00* Test Item Value Reference Range Interpretation Comme nts PSA, TOTAL (test code = 2606) 1.42 NG/ML Vasquez Carey AustinHEMOGLOBIN [id number] 00:00:00* Test Item Value Reference Range Interpretation Comme nts HEMOGLOBIN A1c (test code = 75939) 5.7 % Vasquez MarlowPSA, [id number] 00:00:00* Test Item Value Reference Range Interpretation Comme nts PSA, TOTAL (test code = 2606) 1.42 NG/ML Vasquez MarlowHEMOGLOBIN [id number] 00:00:00* Test Item Value Reference Range Interpretation Commmike nts HEMOGLOBIN A1c (test code = 87721) 5.7 % Vasquez MarlowCT ABDOMEN PELVIS WO [id number] 16:19:32EXAM: CT ABDOMEN PELVIS WO CONTRAST HISTORY: 58 years-old Male; lower abdominal/back pain, nausea, vomiting,and fever. TECHNIQUE: Contiguous axial imaging from the level of the lung basesthrough the proximal thighs was performed without the intravenousadministration of contrast. Coronal and sagittal reconstructions wereobtained. COMPARISON: None FINDINGS: LOWER THORAX: The lung bases are clear. LIVER: Hepatomegaly, measuring 17.6 cm in cranial caudal length. No focalhepatic lesion is seen within the limitations of a non-contrastedexamination. GALLBLADDER AND BILIARY TREE: The gallbladder appears unremarkable. Noradiopaque gallstones are seen. No intra or extrahepatic biliary ductaldilation is visualized. SPLEEN: The spleen is normal in size. PANCREAS: No ductal dilation or masses are visualized. ADRENAL GLANDS: No adrenal masses are seen. KIDNEYS: No hydronephrosis, stones, or contour deforming solid masses arevisualized. PELVIS/BLADDER: The bladder is partially collapsed, which limitsevaluation. The reproductive organs are unremarkable. GI TRACT: No dilation or bowel wall thickening is seen. The appendixappears unremarkable (4:50). PERITONEUM AND RETROPERITONEUM: No intra-abdominal free air or fluidcollection is visualized. LYMPH NODES: No enlarged intra-abdominal or pelvic lymph nodes are found. VESSELS: The vessels appear unremarkable within limitations of anon-contrasted examination. BONES AND SOFT TISSUES: No suspicious lytic or sclerotic bony lesions arepresent. Small fat-containing umbilical hernia.[facility] 14:49:36* Test Item Value Reference Range Interpretation Comme nts LIPASE (test code = 9800972242) 98 U/L 0-220 Lab Interpretation (test cod e = 46153-7) [facility] [id number] 14:41:37* Test Item Value Reference Range Interpretation Comme nts WBC (test code = 6690-2) 8.31 4.20-10.70 RBC (test code = 789-8) 4.37 4.26-5.52 HGB (test code = 718-7) 12.1 g/dL 12.2-16.4 L HCT (test code = 4544-3) 37.7 % 38.4-49.3 L MCV (test code = 787-2) 86.3 fL 81.7-95.6 MCH (test code = 785-6) 27.7 pg 26.1-32.7 MCHC (test code = 786-4) 32.1 g/dL 31.2-35.0 RDW-SD (test code = 71207-8) 43.1 fL 38.5-51.6 RDW-CV (test code = 788-0) 13.9 % 12.1-15.4 PLT (test code = 777-3) 234 150-328 MPV (test code = 56798-3) 9.5 fL 9.8-13.0 L NRBC/100 WBC (test code = 5180039639) 0.0 0.0-10.0 NRBC x10^3 (test code = 9823073739) See_Comment [Automated messa ge] The system which generated this result transmitted reference range: 10*3/?L. The reference range was not used to interpret this result as normal/abnormal. GRAN MAT (NEUT) % (test code = 770-8) 74.9 % IMM GRAN % (test code = 2532082090) 0.60 % LYMPH % (test code = 736-9) 18.7 % MONO % (test code = 5905-5) 4.0 % EOS % (test code = 713-8) 1.3 % BASO % (test code = 706-2) 0.5 % GRAN MAT x10^3(ANC) (test code = 0250682184) 6.23 10*3/uL 1.99-6.95 IMM GRAN x10^3 (test code = 6144164785) 0.05 10*3/uL 0.00-0.06 LYMPH x10^3 (test code = 731-0) 1.55 10*3/uL 1.09-3.23 MONO x10^3 (test code = 742-7) 0.33 10*3/uL 0.36-1.02 L EOS x10^3 (test code = 711-2) 0.11 10*3/uL 0.06-0.53 BASO x10^3 (test code = 704-7) 0.04 10*3/uL 0.01-0.09 Lab Interpretation (test code = 71028-9) Abnormal [facility] METABOLIC PANEL (NA, K, CL, CO2, GLUCOSE, BUN, CREATININE, CA)2023-07-30 15:50:27* Test Item Value Reference Range Interpretation Comme nts NA (test code = 5052761184) 139 mmol/L 135-145 K (test code = 5868952164) 4.1 mmol/L 3.5-5.0 CL (test code = 9145990736) 103 mmol/L 98-108 CO2 TOTAL (test code = 2334501904) 29 mmol/L 23-31 AGAP (test code = 2589935529) 7 2-16 BUN (test code = 0655882225) 10 mg/dL 7-23 GLUCOSE (test code = 7023782798) 108 mg/dL 70-110 CREATININE (test code = 0862056504) 0.89 mg/dL 0.60-1.25 CALCIUM (test code = 2641725641) 9.1 mg/dL 8.6-10.6 eGFR (test code = 2651220841) 88.1 mL/min/1.73m2 ROSETTE (test code = ROSETTE) Association of Glomerular Filtration Rate (GFR) and Staging of Kidney Disease* + + +- +| GFR (mL/min/1.73 m2) ?| With Kidney Damage ?| ?Without Kidney Damage+ ------+ ----+ ------+| ?>90 ?| ?Stage one ?| ? Normal ?+ -+ + -+| ?60-89 ?| ?Stage two ?| ? Decreased GFR ? + + +- +| ?30-59 ?| ?Stage three ?| ? Stage three ? + + +- +| ?15-29 ?| ?Stage four ? | ? Stage four ?+ -+ + -+| ?<15 (or dialysis) ? ?| ?Stage five ? | ? Stage five ?+ -+ + -+ *Each stage assumes the associated GFR level has been in effect for at least three months. ?Stages 1 to 5, with or without kidney disease, indicate chronic kidney disease. Notes: Determination of stages one and two (with eGFR >59mL/min/1.73 m2) requires estimation of kidney damage for at least three months as defined by structural or functional abnormalities of the kidney, manifested by either:Pathological abnormalities or Markers of kidney damage (including abnormalities in the composition of the blood or urine or abnormalities in imaging tests). [facility] ([facility] (ALB,T.PRO,BILI T,BU/BC,ALT,AST,ALK PHOS)2023-07-30 15:49:46* Test Item Value Reference Range Interpretation Comme nts TOTAL BILI (test code = 7256535562) 0.5 mg/dL 0.1-1.1 BILI UNCON (test code = 6964869142) 0.4 mg/dL 0.1-1.1 BILI CONJ (test code = 7378672495) 0.0 mg/dL 0.0-0.3 T PROTEIN (test code = 6106811207) 7.6 g/dL 6.3-8.2 ALBUMIN (test code = 5434615083) 4.1 g/dL 3.5-5.0 ALK PHOS (test code = 7761428461) 72 U/L 34-122 ALTv (test code = 1742-6) 23 U/L 5-50 AST(SGOT) (test code = 6213467607) 23 U/L 13-40 Lab Interpretation (test cod e = 00922-4) Normal [facility] WITH [id number] 15:30:24* Test Item Value Reference Range Interpretation Comme nts WBC (test code = 6690-2) 8.82 See_Comment [Automated messa ge] The system which generated this result transmitted reference range: 4.20 - 10.70 10*3/?L. The reference range was not used to interpret this result as normal/abnormal. RBC (test code = 789-8) 4.63 See_Comment [Automated messa ge] The system which generated this result transmitted reference range: 4.26 - 5.52 10*6/?L. The reference range was not used to interpret this result as normal/abnormal. HGB (test code = 718-7) 13.1 g/dL 12.2-16.4 HCT (test code = 4544-3) 40.3 % 38.4-49.3 MCV (test code = 787-2) 87.0 fL 81.7-95.6 MCH (test code = 785-6) 28.3 pg 26.1-32.7 MCHC (test code = 786-4) 32.5 g/dL 31.2-35.0 RDW-SD (test code = 85898-7) 40.5 fL 38.5-51.6 RDW-CV (test code = 788-0) 12.9 % 12.1-15.4 PLT (test code = 777-3) 245 See_Comment [Automated messa ge] The system which generated this result transmitted reference range: 150 - 328 10*3/?L. The reference range was not used to interpret this result as normal/abnormal. MPV (test code = 36192-2) 8.9 fL 9.8-13.0 L NRBC/100 WBC (test code = 2269726311) 0.0 See_Comment [Automated [employer]] The system which generated this result transmitted reference range: 0.0 - 10.0 /100 WBCs. The reference range was not used to interpret this result as normal/abnormal. NRBC x10^3 (test code = 6895137674) See_Comment [Automated messa ge] The system which generated this result transmitted reference range: 10*3/?L. The reference range was not used to interpret this result as normal/abnormal. GRAN MAT (NEUT) % (test code = 770-8) 72.7 % IMM GRAN % (test code = 6835392836) 0.90 % LYMPH % (test code = 736-9) 16.7 % MONO % (test code = 5905-5) 5.6 % EOS % (test code = 713-8) 3.6 % BASO % (test code = 706-2) 0.5 % GRAN MAT x10^3(ANC) (test code = 7614953987) 6.42 10*3/uL 1.99-6.95 IMM GRAN x10^3 (test code = 5560283717) 0.08 10*3/uL 0.00-0.06 H LYMPH x10^3 (test code = 731-0) 1.47 10*3/uL 1.09-3.23 MONO x10^3 (test code = 742-7) 0.49 10*3/uL 0.36-1.02 EOS x10^3 (test code = 711-2) 0.32 10*3/uL 0.06-0.53 BASO x10^3 (test code = 704-7) 0.04 10*3/uL 0.01-0.09 Lab Interpretation (test code = 67152-0) Abnormal [facility] HospitalFR [id number] 19:45:55* Test Item Value Reference Range Interpretation Comme nts FREE T4 (test code = 0740461490) 0.88 See_Comment [Automated messa ge] The system which generated this result transmitted reference range: 0.78 - 2.20 ng/dL:. The reference range was not used to interpret this result as normal/abnormal. Lab Interpretation (test code = 58083-6) Normal [facility] HospitalN-TERMINAL [id number] 19:37:36* Test Item Value Reference Range Interpretation Comme nts NT-proBNP (test code = 35462-8) 31 pg/mL <=125 Lab Interpretation (test cod e = 42098-4) Normal [facility]23-[facility] 19:28:34* Test Item Value Reference Range Interpretation Comme nts MAGNESIUM (test code = 5918717618) 2.1 mg/dL 1.7-2.4 Lab Interpretation (test cod e = 50952-4) Normal [facility]COMP. [facility]OL[facility] PAN[facility] (72232)2023-06-06 19:28:19* Test Item Value Reference Range Interpretation Comme nts NA (test code = 7077238984) 139 mmol/L 135-145 K (test code = 0083565505) 4.2 mmol/L 3.5-5.0 CL (test code = 1529548519) 102 mmol/L 98-108 CO2 TOTAL (test code = 3619818389) 29 mmol/L 23-31 AGAP (test code = 4215335889) 8 2-16 BUN (test code = 8683216023) 13 mg/dL 7-23 GLUCOSE (test code = 9073266212) 112 mg/dL 70-110 H CREATININE (test code = 6791777425) 0.88 mg/dL 0.60-1.25 TOTAL BILI (test code = 3867229434) 0.6 mg/dL 0.1-1.1 CALCIUM (test code = 8794322823) 9.4 mg/dL 8.6-10.6 T PROTEIN (test code = 4120792610) 7.2 g/dL 6.3-8.2 ALBUMIN (test code = 2061666143) 4.0 g/dL 3.5-5.0 ALK PHOS (test code = 5761613996) 65 U/L 34-122 ALTv (test code = 1742-6) 19 U/L 5-50 AST(SGOT) (test code = 6113113977) 18 U/L 13-40 eGFR (test code = 5178747706) 89.3 mL/min/1.73m2 ROSETTE (test code = ROSETTE) Association of Glomerular Filtration Rate (GFR) and Staging of Kidney Disease* + --+ --+ ------+| GFR (mL/min/1.73 m2) ?| With Kidney Damage ?| ?Without Kidney Damage+ --------+ --------+ +| ?>90 ?| ?Stage one ?| ? Normal ?+ ---+ ---+ -------+| ?60-89 ?| ?Stage two ?| ? Decreased GFR ? + --+ --+ ------+| ?30-59 ?| ?Stage three ?| ? Stage three ? + --+ --+ ------+| ?15-29 ?| ?Stage four ? | ? Stage four ?+ ---+ ---+ -------+| ?<15 (or dialysis) ? ?| ?Stage five ? | ? Stage five ?+ ---+ ---+ -------+ *Each stage assumes the associated GFR level has been in effect for at least three months. ?Stages 1 to 5, with or without kidney disease, indicate chronic kidney disease. Notes: Determination of stages one and two (with eGFR >59mL/min/1.73 m2) requires estimation of kidney damage for at least three months as defined by structural or functional abnormalities of the kidney, manifested by either:Pathological abnormalities or Markers of kidney damage (including abnormalities in the composition of the blood or urine or abnormalities in imaging tests). Lab Interpretation (test code = 55904-3) Abnormal [facility] HospitalCREATINE [id number] 19:27:59* Test Item Value Reference Range Interpretation Comme nts CK (test code = 4248673071) 44 U/L 33-194 Lab Interpretation (test cod e = 09872-4) [facility] WITH [id number] 19:21:16* Test Item Value Reference Range Interpretation Comme nts WBC (test code = 6690-2) 9.93 See_Comment [Automated [employer]] The system which generated this result transmitted reference range: 4.20 - 10.70 10*3/?L. The reference range was not used to interpret this result as normal/abnormal. RBC (test code = 789-8) 4.49 See_Comment [Automated [employer]] The system which generated this result transmitted reference range: 4.26 - 5.52 10*6/?L. The reference range was not used to interpret this result as normal/abnormal. HGB (test code = 718-7) 12.9 g/dL 12.2-16.4 HCT (test code = 4544-3) 38.6 % 38.4-49.3 MCV (test code = 787-2) 86.0 fL 81.7-95.6 MCH (test code = 785-6) 28.7 pg 26.1-32.7 MCHC (test code = 786-4) 33.4 g/dL 31.2-35.0 RDW-SD (test code = 21337-7) 40.2 fL 38.5-51.6 RDW-CV (test code = 788-0) 13.1 % 12.1-15.4 PLT (test code = 777-3) 263 See_Comment [Automated messa ge] The system which generated this result transmitted reference range: 150 - 328 10*3/?L. The reference range was not used to interpret this result as normal/abnormal. MPV (test code = 55610-3) 9.4 fL 9.8-13.0 L NRBC/100 WBC (test code = 7112882118) 0.0 See_Comment [Automated [employer]] The system which generated this result transmitted reference range: 0.0 - 10.0 /100 WBCs. The reference range was not used to interpret this result as normal/abnormal. NRBC x10^3 (test code = 9499515980) See_Comment [Automated [employer] ge] The system which generated this result transmitted reference range: 10*3/?L. The reference range was not used to interpret this result as normal/abnormal. GRAN MAT (NEUT) % (test code = 770-8) 71.6 % IMM GRAN % (test code = 4647544088) 0.80 % LYMPH % (test code = 736-9) 19.2 % MONO % (test code = 5905-5) 5.3 % EOS % (test code = 713-8) 2.7 % BASO % (test code = 706-2) 0.4 % GRAN MAT x10^3(ANC) (test code = 3365919623) 7.10 10*3/uL 1.99-6.95 H IMM GRAN x10^3 (test code = 3705621480) 0.08 10*3/uL 0.00-0.06 H LYMPH x10^3 (test code = 731-0) 1.91 10*3/uL 1.09-3.23 MONO x10^3 (test code = 742-7) 0.53 10*3/uL 0.36-1.02 EOS x10^3 (test code = 711-2) 0.27 10*3/uL 0.06-0.53 BASO x10^3 (test code = 704-7) 0.04 10*3/uL 0.01-0.09 Lab Interpretation (test code = 07302-2) Abnormal [facility]HEMOGLOBIN [id number] 00:00:00* Test Item Value Reference Range Interpretation Comme nts HEMOGLOBIN A1c (test code = 35140) 5.5 % Vas[facility] MarlowCBC W/AUTO [id number] 00:00:00* Test Item Value Reference Range Interpretation Comme nts WBC (test code = 1001) 7.6 K/UL RBC (test code = 1002) 4.45 M/UL HEMOGLOBIN (test code = 1003) 12.9 G/DL HEMATOCRIT (test code = 1004) 37.7 % MCV (test code = 1005) 84.7 fL MCH (test code = 1006) 29.0 PG MCHC (test code = 1007) 34.2 G/DL RDW (test code = 1038) 13.2 % NEUTROPHILS (test code = 1008) 67.8 % LYMPHOCYTES (test code = 1010) 22.8 % MONOCYTES (test code = 1011) 4.6 % EOSINOPHILS (test code = 1012) 2.6 % BASOPHILS (test code = 1013) 0.7 % IMMATURE GRANULOCYTES (test code = 1036) 1.5 % NUCLEATED RBCS (test code = 1065) 0.0 /100WBC'S PLATELET COUNT (test code = 1015) 264 K/UL ABSOLUTE NEUTROPHILS (test c ode = 1066) 5.14 K/UL ABSOLUTE LYMPHOCYTES (test c ode = 1067) 1.73 K/UL ABSOLUTE MONOCYTES (test cod e = 1068) 0.35 K/UL ABSOLUTE EOSINOPHILS (test c ode = 1040) 0.20 K/UL ABSOLUTE BASOPHILS (test cod e = 1069) 0.05 K/UL ABS IMMATURE GRANULOCYTES (t est code = 1020) 0.11 K/UL ABS NUCLEATED RBCS (test cod e = 55922) 0.00 K/UL Vasquez MarlowCOMPREHENSIVE METABOLIC [id number] 00:00:00* Test Item Value Reference Range Interpretation Comme nts GLUCOSE (test code = 2217) 108 MG/DL BUN (test code = 2208) 12 MG/DL CREATININE (test code = 2214) 0.94 MG/DL eGFR (2020 CKD-EPI) (test co de = 45758) 95 ML/MIN/1.73 CALC BUN/CREAT (test code = 2235) 13 RATIO SODIUM (test code = 223) 142 MEQ/L POTASSIUM (test code = 2228) 4.4 MEQ/L CHLORIDE (test code = 2215) 105 MEQ/L CARBON DIOXIDE (test code = 2206) 26 MEQ/L CALCIUM (test code = 2209) 9.6 MG/DL PROTEIN, TOTAL (test code = 2229) 7.4 G/DL ALBUMIN (test code = 2201) 4.2 G/DL CALC GLOBULIN (test code = 2240) 3.2 G/DL CALC A/G RATIO (test code = 2234) 1.3 RATIO BILIRUBIN, TOTAL (test code = 2206) 0.5 MG/DL ALKALINE PHOSPHATASE (test code = 4) 78 U/L AST (test code = 2218) 16 U/L ALT (test code = 2219) 15 U/L Vasquez Mcdermott (HEPATIC) FUNCTION [id number] 00:00:00* Test Item Value Reference Range Interpretation Comme nts PROTEIN, TOTAL (test code = 2229) 7.4 G/DL ALBUMIN (test code = 2201) 4.2 G/DL BILIRUBIN, TOTAL (test code = 2207) 0.5 MG/DL BILIRUBIN, DIRECT (test code = 2021) 0.1 MG/DL ALKALINE PHOSPHATASE (test c ode = 2203) 78 U/L AST (test code = 2218) 16 U/L ALT (test code = 2219) 15 U/L Vasquez MarlowTHYROID II PROFILE (TU, T4, T7, TSH)2023-05-23 00:00:00* Test Item Value Reference Range Interpretation Comme nts T-UPTAKE (test code = 2816) 30.2 % THYROX. BIND. CAPAC. (test c ode = 07472) 1.1 T4 (THYROXINE) (test code = 2819) 8.0 UG/DL CORRECTED T4 (FTI) (test cod e = 2820) 7.3 UG/DL TSH, THIRD GENERATION (test code = 2821) 2.370 UIU/ML Vasquez [id number] 00:00:00* Test Item Value Reference Range Interpretation Comme nts LITHIUM (test code = 2039) 0.54 MEQ/L Vasquez MarlowHEMOGLOBIN [id number] 00:00:00* Test Item Value Reference Range Interpretation Comme nts HEMOGLOBIN A1c (test code = 45800) 5.5 % [facility] MarlowCBC W/AUTO [id number] 00:00:00* Test Item Value Reference Range Interpretation Comme nts WBC (test code = 1001) 7.6 K/UL RBC (test code = 1002) 4.45 M/UL HEMOGLOBIN (test code = 1003) 12.9 G/DL HEMATOCRIT (test code = 1004) 37.7 % MCV (test code = 1005) 84.7 fL MCH (test code = 1006) 29.0 PG MCHC (test code = 1007) 34.2 G/DL RDW (test code = 1038) 13.2 % NEUTROPHILS (test code = 1008) 67.8 % LYMPHOCYTES (test code = 1010) 22.8 % MONOCYTES (test code = 1011) 4.6 % EOSINOPHILS (test code = 1012) 2.6 % BASOPHILS (test code = 1013) 0.7 % IMMATURE GRANULOCYTES (test code = 1036) 1.5 % NUCLEATED RBCS (test code = 1065) 0.0 /100WBC'S PLATELET COUNT (test code = 1015) 264 K/UL ABSOLUTE NEUTROPHILS (test c ode = 1066) 5.14 K/UL ABSOLUTE LYMPHOCYTES (test c ode = 1067) 1.73 K/UL ABSOLUTE MONOCYTES (test cod e = 1068) 0.35 K/UL ABSOLUTE EOSINOPHILS (test c ode = 1040) 0.20 K/UL ABSOLUTE BASOPHILS (test cod e = 1069) 0.05 K/UL ABS IMMATURE GRANULOCYTES (t est code = 1020) 0.11 K/UL ABS NUCLEATED RBCS (test cod e = 20131) 0.00 K/UL Vasquez MarlowCOMPREHENSIVE METABOLIC [id number] 00:00:00* Test Item Value Reference Range Interpretation Comme nts GLUCOSE (test code = 2217) 108 MG/DL BUN (test code = 2208) 12 MG/DL CREATININE (test code = 2214) 0.94 MG/DL eGFR (2020 CKD-EPI) (test co de = 30973) 95 ML/MIN/1.73 CALC BUN/CREAT (test code = 2235) 13 RATIO SODIUM (test code = 2231) 142 MEQ/L POTASSIUM (test code = 2228) 4.4 MEQ/L CHLORIDE (test code = 2215) 105 MEQ/L CARBON DIOXIDE (test code = 2206) 26 MEQ/L CALCIUM (test code = 2209) 9.6 MG/DL PROTEIN, TOTAL (test code = 2229) 7.4 G/DL ALBUMIN (test code = 2201) 4.2 G/DL CALC GLOBULIN (test code = 2240) 3.2 G/DL CALC A/G RATIO (test code = 2234) 1.3 RATIO BILIRUBIN, TOTAL (test code = 2206) 0.5 MG/DL ALKALINE PHOSPHATASE (test code = 4) 78 U/L AST (test code = 2218) 16 U/L ALT (test code = 221) 15 U/L Vasquez Mcdermott (HEPATIC) FUNCTION [id number] 00:00:00* Test Item Value Reference Range Interpretation Comme nts PROTEIN, TOTAL (test code = 2229) 7.4 G/DL ALBUMIN (test code = 2201) 4.2 G/DL BILIRUBIN, TOTAL (test code = 7) 0.5 MG/DL BILIRUBIN, DIRECT (test code = 2021) 0.1 MG/DL ALKALINE PHOSPHATASE (test c ode = 4) 78 U/L AST (test code = 2218) 16 U/L ALT (test code = 2219) 15 U/L Vasquez MarlowTHYROID II PROFILE (TU, T4, T7, TSH)2023-05-23 00:00:00* Test Item Value Reference Range Interpretation Comme nts T-UPTAKE (test code = 2817) 30.2 % THYROX. BIND. CAPAC. (test c ode = 81972) 1.1 T4 (THYROXINE) (test code = 2819) 8.0 UG/DL CORRECTED T4 (FTI) (test cod e = 2820) 7.3 UG/DL TSH, THIRD GENERATION (test code = 2821) 2.370 UIU/ML Vasquez [id number] 00:00:00* Test Item Value Reference Range Interpretation Comme nts LITHIUM (test code = 2039) 0.54 MEQ/L Vasquez MarlowHEMOGLOBIN [id number] 00:00:00* Test Item Value Reference Range Interpretation Comme nts HEMOGLOBIN A1c (test code = 17965) 5.5 % [facility] MarlowCBC W/AUTO [id number] 00:00:00* Test Item Value Reference Range Interpretation Comme nts WBC (test code = 1001) 7.6 K/UL RBC (test code = 1002) 4.45 M/UL HEMOGLOBIN (test code = 1003) 12.9 G/DL HEMATOCRIT (test code = 1004) 37.7 % MCV (test code = 1005) 84.7 fL MCH (test code = 1006) 29.0 PG MCHC (test code = 1007) 34.2 G/DL RDW (test code = 1038) 13.2 % NEUTROPHILS (test code = 1008) 67.8 % LYMPHOCYTES (test code = 1010) 22.8 % MONOCYTES (test code = 1011) 4.6 % EOSINOPHILS (test code = 1012) 2.6 % BASOPHILS (test code = 1013) 0.7 % IMMATURE GRANULOCYTES (test code = 1036) 1.5 % NUCLEATED RBCS (test code = 1065) 0.0 /100WBC'S PLATELET COUNT (test code = 1015) 264 K/UL ABSOLUTE NEUTROPHILS (test c ode = 1066) 5.14 K/UL ABSOLUTE LYMPHOCYTES (test c ode = 1067) 1.73 K/UL ABSOLUTE MONOCYTES (test cod e = 1068) 0.35 K/UL ABSOLUTE EOSINOPHILS (test c ode = 1040) 0.20 K/UL ABSOLUTE BASOPHILS (test cod e = 1069) 0.05 K/UL ABS IMMATURE GRANULOCYTES (t est code = 1020) 0.11 K/UL ABS NUCLEATED RBCS (test cod e = 14358) 0.00 K/UL Vasquez MarlowCOMPREHENSIVE METABOLIC [id number] 00:00:00* Test Item Value Reference Range Interpretation Comme nts GLUCOSE (test code = 2217) 108 MG/DL BUN (test code = 2208) 12 MG/DL CREATININE (test code = 2214) 0.94 MG/DL eGFR (2020 CKD-EPI) (test co de = 32535) 95 ML/MIN/1.73 CALC BUN/CREAT (test code = 2235) 13 RATIO SODIUM (test code = 2231) 142 MEQ/L POTASSIUM (test code = 2228) 4.4 MEQ/L CHLORIDE (test code = 2215) 105 MEQ/L CARBON DIOXIDE (test code = 2206) 26 MEQ/L CALCIUM (test code = 2209) 9.6 MG/DL PROTEIN, TOTAL (test code = 2229) 7.4 G/DL ALBUMIN (test code = 2201) 4.2 G/DL CALC GLOBULIN (test code = 2240) 3.2 G/DL CALC A/G RATIO (test code = 2234) 1.3 RATIO BILIRUBIN, TOTAL (test code = 2206) 0.5 MG/DL ALKALINE PHOSPHATASE (test code = 2204) 78 U/L AST (test code = 2218) 16 U/L ALT (test code = 2219) 15 U/L Vasquez ChowdaryVER (HEPATIC) FUNCTION [id number] 00:00:00* Test Item Value Reference Range Interpretation Comme nts PROTEIN, TOTAL (test code = 2229) 7.4 G/DL ALBUMIN (test code = 2201) 4.2 G/DL BILIRUBIN, TOTAL (test code = 7) 0.5 MG/DL BILIRUBIN, DIRECT (test code = 2021) 0.1 MG/DL ALKALINE PHOSPHATASE (test c ode = 2204) 78 U/L AST (test code = 2218) 16 U/L ALT (test code = 2219) 15 U/L Vasquez MarlowTHYROID II PROFILE (TU, T4, T7, TSH)2023-05-23 00:00:00* Test Item Value Reference Range Interpretation Comme nts T-UPTAKE (test code = 2817) 30.2 % THYROX. BIND. CAPAC. (test c ode = 12243) 1.1 T4 (THYROXINE) (test code = 2819) 8.0 UG/DL CORRECTED T4 (FTI) (test cod e = 2820) 7.3 UG/DL TSH, THIRD GENERATION (test code = 2821) 2.370 UIU/ML Vasquez [id number] 00:00:00* Test Item Value Reference Range Interpretation Comme nts LITHIUM (test code = 2038) 0.54 MEQ/L Vasquez MarlowHEMOGLOBIN [id number] 00:00:00* Test Item Value Reference Range Interpretation Comme nts HEMOGLOBIN A1c (test code = 44546) 5.5 % Vasquez MarlowCBC W/AUTO [id number] 00:00:00* Test Item Value Reference Range Interpretation Comme nts WBC (test code = 1001) 7.6 K/UL RBC (test code = 1002) 4.45 M/UL HEMOGLOBIN (test code = 1003) 12.9 G/DL HEMATOCRIT (test code = 1004) 37.7 % MCV (test code = 1005) 84.7 fL MCH (test code = 1006) 29.0 PG MCHC (test code = 1007) 34.2 G/DL RDW (test code = 1038) 13.2 % NEUTROPHILS (test code = 1008) 67.8 % LYMPHOCYTES (test code = 1010) 22.8 % MONOCYTES (test code = 1011) 4.6 % EOSINOPHILS (test code = 1012) 2.6 % BASOPHILS (test code = 1013) 0.7 % IMMATURE GRANULOCYTES (test code = 1036) 1.5 % NUCLEATED RBCS (test code = 1065) 0.0 /100WBC'S PLATELET COUNT (test code = 1015) 264 K/UL ABSOLUTE NEUTROPHILS (test c ode = 1066) 5.14 K/UL ABSOLUTE LYMPHOCYTES (test c ode = 1067) 1.73 K/UL ABSOLUTE MONOCYTES (test cod e = 1068) 0.35 K/UL ABSOLUTE EOSINOPHILS (test c ode = 1040) 0.20 K/UL ABSOLUTE BASOPHILS (test cod e = 1069) 0.05 K/UL ABS IMMATURE GRANULOCYTES (t est code = 1020) 0.11 K/UL ABS NUCLEATED RBCS (test cod e = 00475) 0.00 K/UL Vasquez MarlowCOMPREHENSIVE METABOLIC [id number] 00:00:00* Test Item Value Reference Range Interpretation Comme nts GLUCOSE (test code = 2217) 108 MG/DL BUN (test code = 2208) 12 MG/DL CREATININE (test code = 2214) 0.94 MG/DL eGFR (2020 CKD-EPI) (test co de = 51201) 95 ML/MIN/1.73 CALC BUN/CREAT (test code = 2235) 13 RATIO SODIUM (test code = 2231) 142 MEQ/L POTASSIUM (test code = 2228) 4.4 MEQ/L CHLORIDE (test code = 2215) 105 MEQ/L CARBON DIOXIDE (test code = 2206) 26 MEQ/L CALCIUM (test code = 2209) 9.6 MG/DL PROTEIN, TOTAL (test code = 2229) 7.4 G/DL ALBUMIN (test code = 2201) 4.2 G/DL CALC GLOBULIN (test code = 2240) 3.2 G/DL CALC A/G RATIO (test code = 2234) 1.3 RATIO BILIRUBIN, TOTAL (test code = 2206) 0.5 MG/DL ALKALINE PHOSPHATASE (test code = 2203) 78 U/L AST (test code = 2218) 16 U/L ALT (test code = 2219) 15 U/L Vasquez ChowdaryVER (HEPATIC) FUNCTION [id number] 00:00:00* Test Item Value Reference Range Interpretation Comme nts PROTEIN, TOTAL (test code = 2229) 7.4 G/DL ALBUMIN (test code = 2201) 4.2 G/DL BILIRUBIN, TOTAL (test code = 220) 0.5 MG/DL BILIRUBIN, DIRECT (test code = 2021) 0.1 MG/DL ALKALINE PHOSPHATASE (test c ode = 2203) 78 U/L AST (test code = 2218) 16 U/L ALT (test code = 221) 15 U/L Vasquez MarlowTHYROID II PROFILE (TU, T4, T7, TSH)2023-05-23 00:00:00* Test Item Value Reference Range Interpretation Comme nts T-UPTAKE (test code = 2817) 30.2 % THYROX. BIND. CAPAC. (test c ode = 81020) 1.1 T4 (THYROXINE) (test code = 2819) 8.0 UG/DL CORRECTED T4 (FTI) (test cod e = 2820) 7.3 UG/DL TSH, THIRD GENERATION (test code = 2821) 2.370 UIU/ML Vasquez [id number] 00:00:00* Test Item Value Reference Range Interpretation Comme nts LITHIUM (test code = 2038) 0.54 MEQ/L Vasquez MarlowHEMOGLOBIN [id number] 00:00:00* Test Item Value Reference Range Interpretation Comme nts HEMOGLOBIN A1c (test code = 27615) 5.5 % Vasquez MarlowCBC W/AUTO [id number] 00:00:00* Test Item Value Reference Range Interpretation Comme nts WBC (test code = 1001) 7.6 K/UL RBC (test code = 1002) 4.45 M/UL HEMOGLOBIN (test code = 1003) 12.9 G/DL HEMATOCRIT (test code = 1004) 37.7 % MCV (test code = 1005) 84.7 fL MCH (test code = 1006) 29.0 PG MCHC (test code = 1007) 34.2 G/DL RDW (test code = 1038) 13.2 % NEUTROPHILS (test code = 1008) 67.8 % LYMPHOCYTES (test code = 1010) 22.8 % MONOCYTES (test code = 1011) 4.6 % EOSINOPHILS (test code = 1012) 2.6 % BASOPHILS (test code = 1013) 0.7 % IMMATURE GRANULOCYTES (test code = 1036) 1.5 % NUCLEATED RBCS (test code = 1065) 0.0 /100WBC'S PLATELET COUNT (test code = 1015) 264 K/UL ABSOLUTE NEUTROPHILS (test c ode = 1066) 5.14 K/UL ABSOLUTE LYMPHOCYTES (test c ode = 1067) 1.73 K/UL ABSOLUTE MONOCYTES (test cod e = 1068) 0.35 K/UL ABSOLUTE EOSINOPHILS (test c ode = 1040) 0.20 K/UL ABSOLUTE BASOPHILS (test cod e = 1069) 0.05 K/UL ABS IMMATURE GRANULOCYTES (t est code = 1020) 0.11 K/UL ABS NUCLEATED RBCS (test cod e = 57681) 0.00 K/UL Vasquez MarlowCOMPREHENSIVE METABOLIC [id number] 00:00:00* Test Item Value Reference Range Interpretation Comme nts GLUCOSE (test code = 2217) 108 MG/DL BUN (test code = 2208) 12 MG/DL CREATININE (test code = 2214) 0.94 MG/DL eGFR (2020 CKD-EPI) (test co de = 33585) 95 ML/MIN/1.73 CALC BUN/CREAT (test code = 2235) 13 RATIO SODIUM (test code = 2231) 142 MEQ/L POTASSIUM (test code = 2228) 4.4 MEQ/L CHLORIDE (test code = 2215) 105 MEQ/L CARBON DIOXIDE (test code = 2206) 26 MEQ/L CALCIUM (test code = 2209) 9.6 MG/DL PROTEIN, TOTAL (test code = 2229) 7.4 G/DL ALBUMIN (test code = 2201) 4.2 G/DL CALC GLOBULIN (test code = 2240) 3.2 G/DL CALC A/G RATIO (test code = 2234) 1.3 RATIO BILIRUBIN, TOTAL (test code = 2206) 0.5 MG/DL ALKALINE PHOSPHATASE (test code = 2203) 78 U/L AST (test code = 2218) 16 U/L ALT (test code = 221) 15 U/L Vasquez ChowdaryVER (HEPATIC) FUNCTION [id number] 00:00:00* Test Item Value Reference Range Interpretation Comme nts PROTEIN, TOTAL (test code = 222) 7.4 G/DL ALBUMIN (test code = 2201) 4.2 G/DL BILIRUBIN, TOTAL (test code = 7) 0.5 MG/DL BILIRUBIN, DIRECT (test code = 2021) 0.1 MG/DL ALKALINE PHOSPHATASE (test c ode = 2203) 78 U/L AST (test code = 2218) 16 U/L ALT (test code = 221) 15 U/L Vasquez MarlowTHYROID II PROFILE (TU, T4, T7, TSH)2023-05-23 00:00:00* Test Item Value Reference Range Interpretation Comme nts T-UPTAKE (test code = 2817) 30.2 % THYROX. BIND. CAPAC. (test c ode = 28436) 1.1 T4 (THYROXINE) (test code = 2819) 8.0 UG/DL CORRECTED T4 (FTI) (test cod e = 2820) 7.3 UG/DL TSH, THIRD GENERATION (test code = 2821) 2.370 UIU/ML Vasquez [id number] 00:00:00* Test Item Value Reference Range Interpretation Comme nts LITHIUM (test code = 2038) 0.54 MEQ/L Vasquez MarlowHEMOGLOBIN [id number] 00:00:00* Test Item Value Reference Range Interpretation Comme nts HEMOGLOBIN A1c (test code = 36837) 5.5 % Vasquez MarlowCBC W/AUTO [id number] 00:00:00* Test Item Value Reference Range Interpretation Comme nts WBC (test code = 1001) 7.6 K/UL RBC (test code = 1002) 4.45 M/UL HEMOGLOBIN (test code = 1003) 12.9 G/DL HEMATOCRIT (test code = 1004) 37.7 % MCV (test code = 1005) 84.7 fL MCH (test code = 1006) 29.0 PG MCHC (test code = 1007) 34.2 G/DL RDW (test code = 1038) 13.2 % NEUTROPHILS (test code = 1008) 67.8 % LYMPHOCYTES (test code = 1010) 22.8 % MONOCYTES (test code = 1011) 4.6 % EOSINOPHILS (test code = 1012) 2.6 % BASOPHILS (test code = 1013) 0.7 % IMMATURE GRANULOCYTES (test code = 1036) 1.5 % NUCLEATED RBCS (test code = 1065) 0.0 /100WBC'S PLATELET COUNT (test code = 1015) 264 K/UL ABSOLUTE NEUTROPHILS (test c ode = 1066) 5.14 K/UL ABSOLUTE LYMPHOCYTES (test c ode = 1067) 1.73 K/UL ABSOLUTE MONOCYTES (test cod e = 1068) 0.35 K/UL ABSOLUTE EOSINOPHILS (test c ode = 1040) 0.20 K/UL ABSOLUTE BASOPHILS (test cod e = 1069) 0.05 K/UL ABS IMMATURE GRANULOCYTES (t est code = 1020) 0.11 K/UL ABS NUCLEATED RBCS (test cod e = 50629) 0.00 K/UL Vasquez MarlowCOMPREHENSIVE METABOLIC [id number] 00:00:00* Test Item Value Reference Range Interpretation Comme nts GLUCOSE (test code = 2217) 108 MG/DL BUN (test code = 2208) 12 MG/DL CREATININE (test code = 2214) 0.94 MG/DL eGFR (2020 CKD-EPI) (test co de = 36536) 95 ML/MIN/1.73 CALC BUN/CREAT (test code = 2235) 13 RATIO SODIUM (test code = 2231) 142 MEQ/L POTASSIUM (test code = 2228) 4.4 MEQ/L CHLORIDE (test code = 2215) 105 MEQ/L CARBON DIOXIDE (test code = 2206) 26 MEQ/L CALCIUM (test code = 2209) 9.6 MG/DL PROTEIN, TOTAL (test code = 2229) 7.4 G/DL ALBUMIN (test code = 2201) 4.2 G/DL CALC GLOBULIN (test code = 2240) 3.2 G/DL CALC A/G RATIO (test code = 2234) 1.3 RATIO BILIRUBIN, TOTAL (test code = 2207) 0.5 MG/DL ALKALINE PHOSPHATASE (test code = 2204) 78 U/L AST (test code = 2218) 16 U/L ALT (test code = 2219) 15 U/L Vasquez ChowdaryVER (HEPATIC) FUNCTION [id number] 00:00:00* Test Item Value Reference Range Interpretation Comme nts PROTEIN, TOTAL (test code = 2229) 7.4 G/DL ALBUMIN (test code = 2201) 4.2 G/DL BILIRUBIN, TOTAL (test code = 7) 0.5 MG/DL BILIRUBIN, DIRECT (test code = 2021) 0.1 MG/DL ALKALINE PHOSPHATASE (test c ode = 4) 78 U/L AST (test code = 2218) 16 U/L ALT (test code = 2219) 15 U/L Vasquez MarlowTHYROID II PROFILE (TU, T4, T7, TSH)2023-05-23 00:00:00* Test Item Value Reference Range Interpretation Comme nts T-UPTAKE (test code = 2817) 30.2 % THYROX. BIND. CAPAC. (test c ode = 60672) 1.1 T4 (THYROXINE) (test code = 2819) 8.0 UG/DL CORRECTED T4 (FTI) (test cod e = 2820) 7.3 UG/DL TSH, THIRD GENERATION (test code = 2821) 2.370 UIU/ML Vasquez [id number] 00:00:00* Test Item Value Reference Range Interpretation Comme nts LITHIUM (test code = 203) 0.54 MEQ/L Vasquez MarlowBASIC METABOLIC [id number] 10:17:00* Test Item Value Reference Range Interpretation Comme nts SODIUM (test code = NA) 140 mEq/L 134-147 N POTASSIUM (test code = K) 4.1 mEq/L 3.4-5.0 N CHLORIDE (test code = CL) 108 mEq/L 100-108 N CARBON DIOXIDE (test code = CO2) 26 mEq/l 21-33 N ANION GAP (test code = GAP) 10 0-20 N GLUCOSE (test code = GLU) 102 mg/dL 70-110 N BLOOD UREA NITROGEN (test code = BUN) 8 mg/dL 7-18 GLOMERULAR FILTRATION RATE (test code = GFR) 100.2 90-95 H The Glomerular Filtration Rate is a calculated parameterbased on serum Creatinine, patient age and sex. GFR valuesless than 60 mL/min/1.73 square meters are indicative ofChronic Kidney Disease. Values less than 15 mL/min/1.73square meters indicate Kidney failure. The calculation forGFR is based on the CKD-EPI (2020) calculation. This formulais race indifferent and is the recommended formula for GFRby the National Kidney Foundation for Adults.The GFR will not calculate if the sex is unknown or if thepatient's age is <18 years. CREATININE (test code = CREAT) 0.9 mg/dL 0.6-1.3 N CALCIUM (test code = CA) 9.0 mg/dL 8.0-10.5 N BASIC METABOLIC [id number] 14:27:00* Test Item Value Reference Range Interpretation Comme nts SODIUM (test code = NA) 139 mEq/L 134-147 N POTASSIUM (test code = K) 3.9 mEq/L 3.4-5.0 N CHLORIDE (test code = CL) 106 mEq/L 100-108 N CARBON DIOXIDE (test code = CO2) 27 mEq/l 21-33 N ANION GAP (test code = GAP) 10 0-20 N GLUCOSE (test code = GLU) 126 mg/dL 70-110 H BLOOD UREA NITROGEN (test code = BUN) 13 mg/dL 7-18 N GLOMERULAR FILTRATION RATE (test code = GFR) 100.2 90-95 H The Glomerular Filtration Rate is a calculated parameterbased on serum Creatinine, patient age and sex. GFR valuesless than 60 mL/min/1.73 square meters are indicative ofChronic Kidney Disease. Values less than 15 mL/min/1.73square meters indicate Kidney failure. The calculation forGFR is based on the CKD-EPI (2020) calculation. This formulais race indifferent and is the recommended formula for GFRby the National Kidney Foundation for Adults.The GFR will not calculate if the sex is unknown or if thepatient's age is <18 years. CREATININE (test code = CREAT) 0.9 mg/dL 0.6-1.3 N CALCIUM (test code = CA) 9.3 mg/dL 8.0-10.5 N CBC W/AUTO [id number] 14:14:00* Test Item Value Reference Range Interpretation Comme nts WHITE BLOOD CELL (test code = WBC) 9.0 x10 3/uL 4.5-11.0 N RED BLOOD CELL (test code = RBC) 4.53 x10 6/uL 4.00-5.60 N HEMOGLOBIN (test code = HGB) 12.4 g/dL 12.5-16.9 L HEMATOCRIT (test code = HCT) 38.5 % 37.5-50.7 N MEAN CELL VOLUME (test code = MCV) 85.0 fL 81.0-99.0 N MEAN CELL HGB (test code = MCH) 27.4 pg 27.0-33.0 N MEAN CELL HGB CONCETRATION (test code = MCHC) 32.2 g/dL 33.0-37.0 L RED CELL DISTRIBUTION WIDTH CV (test code = RDW) 13.3 % 11.5-14.5 N RED CELL DISTRIBUTION WIDTH SD (test code = RDW-SD) 41.1 fL 37.0-54.0 N PLATELET COUNT (test code = PLT) 259 x10 3/uL 150-400 N MEAN PLATELET VOLUME (test c ode = MPV) 9.3 fL 7.0-9.0 H NEUTROPHIL % (test code = NT%) 66.0 % 56.0-77.0 N IMMATURE GRANULOCYTE % (test code = IG%) 0.6 % 0.0-2.0 N LYMPHOCYTE % (test code = LY%) 23.0 % 14.0-32.0 N MONOCYTE % (test code = MO%) 6.1 % 4.8-9.0 N EOSINOPHIL % (test code = EO%) 3.7 % 0.3-3.7 N BASOPHIL % (test code = BA%) 0.6 % 0.0-2.0 N NUCLEATED RBC % (test code = NRBC%) 0.0 % 0-0 N NEUTROPHIL # (test code = NT#) 5.97 x10 3/uL 2.0-7.6 N IMMATURE GRANULOCYTE # (test code = IG#) 0.05 x10 3/uL 0.00-0.03 H LYMPHOCYTE # (test code = LY#) 2.08 x10 3/uL 1.0-3.8 N MONOCYTE # (test code = MO#) 0.55 x10 3/uL 0.1-0.8 N EOSINOPHIL # (test code = EO#) 0.33 x10 3/uL 0.0-0.2 H BASOPHIL # (test code = BA#) 0.05 x10 3/uL 0.0-0.2 N NUCLEATED RBC # (test code = NRBC#) 0.00 x10 3/uL 0.0-0.1 N MANUAL DIFF REQUIRED (test c ode = MDIFF) NO THYROID II PROFILE (TU,T4,FTI,TSH)2023-02-07 07:01:13* Test Item Value Reference Range Interpretation Comme nts T-UPTAKE (test code = 2817) 30.2 % 24.3-39.0 THYROX. BIND. CAPAC. (test c ode = 94214) 1.1 0.8-1.3 T4 (THYROXINE) (test code = 2819) 6.5 UG/DL 4.5-10.5 CORRECTED T4 (FTI) (test cod e = 2820) 5.9 UG/DL 4.2-11.6 TSH, THIRD GENERATION (test code = 2821) 2.260 UIU/ML 0.400-4.100 HEMOGLOBIN [id number] 04:08:18* Test Item Value Reference Range Interpretation Comme nts HEMOGLOBIN A1c (test code = 54522) 5.7 % 4.2-5.6 H [employer] GUIDELINES FOR HGB A1C: PREDIABETES/INCREASED RISK . . . . . . . 5.7-6.4% DIAGNOSIS OF DIABETES . . . . . . . . . >=6.5% WITH CONFIRMATION OR APPROPRIATE SYMPTOMS NOTE: ASSAY MAY BE AFFECTED BY HEMOGLOBINOPATHIES (SICKLE CELL ANEMIA, S-C DISEASE, OTHERS) OR ARTIFICIALLY LOWERED BY DECREASED RED CELL SURVIVAL (HEMOLYTIC ANEMIAS, BLOOD LOSS, ETC.). CONSIDER ALTERNATE TESTING OR LABORATORY CONSULTATION. COMPREHENSIVE METABOLIC [id number] 03:21:36* Test Item Value Reference Range Interpretation Comme nts GLUCOSE (test code = 7) 100 MG/DL 70-99 H BUN (test code = 2207) 12 MG/DL 6-20 CREATININE (test code = 2214) 1.01 MG/DL 0.80-1.40 eGFR (2020 CKD-EPI) (test code = 22351) 87 ML/MIN/1.73 >60 CALC BUN/CREAT (test code = 2235) 12 RATIO 6-28 SODIUM (test code = 223) 141 MEQ/L 133-146 POTASSIUM (test code = 222) 4.2 MEQ/L 3.5-5.4 CHLORIDE (test code = 5) 104 MEQ/L 95-107 CARBON DIOXIDE (test code = 6) 27 MEQ/L 19-31 CALCIUM (test code = 220) 9.8 MG/DL 8.5-10.5 PROTEIN, TOTAL (test code = 2228) 7.2 G/DL 6.1-8.3 ALBUMIN (test code = 2201) 4.1 G/DL 3.5-5.2 CALC GLOBULIN (test code = 2240) 3.1 G/DL 1.9-3.7 CALC A/G RATIO (test code = 2234) 1.3 RATIO 1.0-2.6 BILIRUBIN, TOTAL (test code = 220) 0.4 MG/DL See_Comment [Automated me ssage] The system which generated this result transmitted reference range: <=1.2. The reference range was not used to interpret this result as normal/abnormal. ALKALINE PHOSPHATASE (test code = 2203) 73 U/L 40-123 AST (test code = 2218) 12 U/L 9-50 ALT (test code = 2219) 11 U/L 5-50 HEPATIC FUNCTION [id number] 03:21:36* Test Item Value Reference Range Interpretation Comme nts PROTEIN, TOTAL (test code = 222) 7.2 G/DL 6.1-8.3 ALBUMIN (test code = 2201) 4.1 G/DL 3.5-5.2 BILIRUBIN, TOTAL (test code = 2207) 0.4 MG/DL See_Comment [Automated RadarChilea ge] The system which generated this result transmitted reference range: <=1.2. The reference range was not used to interpret this result as normal/abnormal. BILIRUBIN, DIRECT (test code = 2021) 0.1 MG/DL 0.0-0.3 ALKALINE PHOSPHATASE (test code = 2203) 73 U/L 40-123 AST (test code = 2217) 12 U/L 9-50 ALT (test code = 2218) 11 U/L 5-50 [id number] 03:21:25* Test Item Value Reference Range Interpretation Comme nts LITHIUM (test code = 2038) 0.31 MEQ/L 0.60-1.20 L [facility] has impo rtant pathology staff changes effective 01/21/2023. New pathology staff will provide uninterrupted, excellent patient care and clinical consultation. See URL: [email or web address]. UNLESS OTHERWISE INDICATED, ALL TESTING PERFORMED AT [facility] [address] [place] [address] LOOM FIXER APPRENTICE: SAY HIGH M.D. CLIA NUMBER [id number] [facility] [place] [place]. [id number] CBC W/AUTO DIFF WITH [id number] 02:21:25* Test Item Value Reference Range Interpretation Comme nts WBC (test code = 1001) 7.7 K/UL 3.5-11.0 RBC (test code = 1002) 4.84 M/UL 4.50-6.10 HEMOGLOBIN (test code = 1003) 13.7 G/DL 13.5-17.0 HEMATOCRIT (test code = 1004) 40.7 % 40.0-51.0 MCV (test code = 1005) 84.1 fL 80.0-99.0 MCH (test code = 1006) 28.3 PG 25.0-33.0 MCHC (test code = 1007) 33.7 G/DL 31.0-36.0 RDW (test code = 1038) 13.4 % 11.5-15.0 NEUTROPHILS (test code = 1008) 71.3 % LYMPHOCYTES (test code = 1010) 19.3 % MONOCYTES (test code = 1011) 5.2 % EOSINOPHILS (test code = 1012) 3.2 % BASOPHILS (test code = 1013) 0.5 % IMMATURE GRANULOCYTES (test code = 1036) 0.5 % NUCLEATED RBCS (test code = 1065) 0.0 /100 WBC'S See_Comment [Automated messa ge] The system which generated this result transmitted reference range: 0.0. The reference range was not used to interpret this result as normal/abnormal. PLATELET COUNT (test code = 1015) 249 K/UL 130-400 ABSOLUTE NEUTROPHILS (test code = 1066) 5.51 K/UL 1.50-7.50 ABSOLUTE LYMPHOCYTES (test code = 1067) 1.49 K/UL 1.00-4.00 ABSOLUTE MONOCYTES (test code = 1068) 0.40 K/UL 0.20-1.00 ABSOLUTE EOSINOPHILS (test code = 1040) 0.25 K/UL 0.00-0.50 ABSOLUTE BASOPHILS (test code = 1069) 0.04 K/UL 0.00-0.20 ABS IMMATURE GRANULOCYTES (test code = 1020) 0.04 K/UL 0.00-0.10 ABS NUCLEATED RBCS (test code = 60410) 0.00 K/UL 0.00-0.11 CBC W/AUTO [id number] 00:00:00* Test Item Value Reference Range Interpretation Comme nts WBC (test code = 1001) 7.7 K/UL RBC (test code = 1002) 4.84 M/UL HEMOGLOBIN (test code = 1003) 13.7 G/DL HEMATOCRIT (test code = 1004) 40.7 % MCV (test code = 1005) 84.1 fL MCH (test code = 1006) 28.3 PG MCHC (test code = 1007) 33.7 G/DL RDW (test code = 1038) 13.4 % NEUTROPHILS (test code = 1008) 71.3 % LYMPHOCYTES (test code = 1010) 19.3 % MONOCYTES (test code = 1011) 5.2 % EOSINOPHILS (test code = 1012) 3.2 % BASOPHILS (test code = 1013) 0.5 % IMMATURE GRANULOCYTES (test code = 1036) 0.5 % NUCLEATED RBCS (test code = 1065) 0.0 /100WBC'S PLATELET COUNT (test code = 1015) 249 K/UL ABSOLUTE NEUTROPHILS (test c ode = 1066) 5.51 K/UL ABSOLUTE LYMPHOCYTES (test c ode = 1067) 1.49 K/UL ABSOLUTE MONOCYTES (test cod e = 1068) 0.40 K/UL ABSOLUTE EOSINOPHILS (test c ode = 1040) 0.25 K/UL ABSOLUTE BASOPHILS (test cod e = 1069) 0.04 K/UL ABS IMMATURE GRANULOCYTES (t est code = 1020) 0.04 K/UL ABS NUCLEATED RBCS (test cod e = 38242) 0.00 K/UL Vasquez MarlowHEMOGLOBIN [id number] 00:00:00* Test Item Value Reference Range Interpretation Comme nts HEMOGLOBIN A1c (test code = 46013) 5.7 % Vasquez MarlowCOMPREHENSIVE METABOLIC [id number] 00:00:00* Test Item Value Reference Range Interpretation Comme nts GLUCOSE (test code = 2217) 100 MG/DL BUN (test code = 2208) 12 MG/DL CREATININE (test code = 2214) 1.01 MG/DL eGFR (2020 CKD-EPI) (test co de = 73334) 87 ML/MIN/1.73 CALC BUN/CREAT (test code = 2235) 12 RATIO SODIUM (test code = 2231) 141 MEQ/L POTASSIUM (test code = 2228) 4.2 MEQ/L CHLORIDE (test code = 2215) 104 MEQ/L CARBON DIOXIDE (test code = 2206) 27 MEQ/L CALCIUM (test code = 2209) 9.8 MG/DL PROTEIN, TOTAL (test code = 2229) 7.2 G/DL ALBUMIN (test code = 2201) 4.1 G/DL CALC GLOBULIN (test code = 2240) 3.1 G/DL CALC A/G RATIO (test code = 2234) 1.3 RATIO BILIRUBIN, TOTAL (test code = 2207) 0.4 MG/DL ALKALINE PHOSPHATASE (test code = 2204) 73 U/L AST (test code = 2218) 12 U/L ALT (test code = 2219) 11 U/L Vasquez MarlowTHYROID II PROFILE (T3U, T4, T7, TSH)2023-02-07 00:00:00* Test Item Value Reference Range Interpretation Comme nts T-UPTAKE (test code = 2817) 30.2 % THYROX. BIND. CAPAC. (test c ode = 56880) 1.1 T4 (THYROXINE) (test code = 2819) 6.5 UG/DL CORRECTED T4 (FTI) (test cod e = 2820) 5.9 UG/DL TSH, THIRD GENERATION (test code = 2821) 2.260 UIU/ML Vasquez ChowdaryTATE (HEPATIC) FUNCTION [id number] 00:00:00* Test Item Value Reference Range Interpretation Comme nts PROTEIN, TOTAL (test code = 2229) 7.2 G/DL ALBUMIN (test code = 2201) 4.1 G/DL BILIRUBIN, TOTAL (test code = 2207) 0.4 MG/DL BILIRUBIN, DIRECT (test code = 2021) 0.1 MG/DL ALKALINE PHOSPHATASE (test c ode = 2204) 73 U/L AST (test code = 2218) 12 U/L ALT (test code = 2219) 11 U/L Vasquez [id number] 00:00:00* Test Item Value Reference Range Interpretation Comme nts LITHIUM (test code = 203) 0.31 MEQ/L Vasquez MarlowCBC W/AUTO [id number] 00:00:00* Test Item Value Reference Range Interpretation Comme nts WBC (test code = 1001) 7.7 K/UL RBC (test code = 1002) 4.84 M/UL HEMOGLOBIN (test code = 1003) 13.7 G/DL HEMATOCRIT (test code = 1004) 40.7 % MCV (test code = 1005) 84.1 fL MCH (test code = 1006) 28.3 PG MCHC (test code = 1007) 33.7 G/DL RDW (test code = 1038) 13.4 % NEUTROPHILS (test code = 1008) 71.3 % LYMPHOCYTES (test code = 1010) 19.3 % MONOCYTES (test code = 1011) 5.2 % EOSINOPHILS (test code = 1012) 3.2 % BASOPHILS (test code = 1013) 0.5 % IMMATURE GRANULOCYTES (test code = 1036) 0.5 % NUCLEATED RBCS (test code = 1065) 0.0 /100WBC'S PLATELET COUNT (test code = 1015) 249 K/UL ABSOLUTE NEUTROPHILS (test c ode = 1066) 5.51 K/UL ABSOLUTE LYMPHOCYTES (test c ode = 1067) 1.49 K/UL ABSOLUTE MONOCYTES (test cod e = 1068) 0.40 K/UL ABSOLUTE EOSINOPHILS (test c ode = 1040) 0.25 K/UL ABSOLUTE BASOPHILS (test cod e = 1069) 0.04 K/UL ABS IMMATURE GRANULOCYTES (t est code = 1020) 0.04 K/UL ABS NUCLEATED RBCS (test cod e = 27715) 0.00 K/UL Vasquez MarlowHEMOGLOBIN [id number] 00:00:00* Test Item Value Reference Range Interpretation Comme nts HEMOGLOBIN A1c (test code = 88132) 5.7 % Vasquez MarlowCOMPREHENSIVE METABOLIC [id number] 00:00:00* Test Item Value Reference Range Interpretation Comme nts GLUCOSE (test code = 2217) 100 MG/DL BUN (test code = 2208) 12 MG/DL CREATININE (test code = 2214) 1.01 MG/DL eGFR (2020 CKD-EPI) (test co de = 16256) 87 ML/MIN/1.73 CALC BUN/CREAT (test code = 2235) 12 RATIO SODIUM (test code = 2231) 141 MEQ/L POTASSIUM (test code = 2228) 4.2 MEQ/L CHLORIDE (test code = 2215) 104 MEQ/L CARBON DIOXIDE (test code = 2206) 27 MEQ/L CALCIUM (test code = 2209) 9.8 MG/DL PROTEIN, TOTAL (test code = 2229) 7.2 G/DL ALBUMIN (test code = 2201) 4.1 G/DL CALC GLOBULIN (test code = 2240) 3.1 G/DL CALC A/G RATIO (test code = 2234) 1.3 RATIO BILIRUBIN, TOTAL (test code = 2207) 0.4 MG/DL ALKALINE PHOSPHATASE (test code = 2204) 73 U/L AST (test code = 2218) 12 U/L ALT (test code = 2219) 11 U/L Vasquez MarlowTHYROID II PROFILE (T3U, T4, T7, TSH)2023-02-07 00:00:00* Test Item Value Reference Range Interpretation Comme nts T-UPTAKE (test code = 2817) 30.2 % THYROX. BIND. CAPAC. (test c ode = 74871) 1.1 T4 (THYROXINE) (test code = 2819) 6.5 UG/DL CORRECTED T4 (FTI) (test cod e = 2820) 5.9 UG/DL TSH, THIRD GENERATION (test code = 2821) 2.260 UIU/ML Vasquez ChowdaryVER (HEPATIC) FUNCTION [id number] 00:00:00* Test Item Value Reference Range Interpretation Comme nts PROTEIN, TOTAL (test code = 2229) 7.2 G/DL ALBUMIN (test code = 2201) 4.1 G/DL BILIRUBIN, TOTAL (test code = 2207) 0.4 MG/DL BILIRUBIN, DIRECT (test code = 2021) 0.1 MG/DL ALKALINE PHOSPHATASE (test c ode = 2204) 73 U/L AST (test code = 2218) 12 U/L ALT (test code = 2219) 11 U/L Vasquez [id number] 00:00:00* Test Item Value Reference Range Interpretation Comme nts LITHIUM (test code = 2039) 0.31 MEQ/L Vasquez MarlowCBC W/AUTO [id number] 00:00:00* Test Item Value Reference Range Interpretation Comme nts WBC (test code = 1001) 7.7 K/UL RBC (test code = 1002) 4.84 M/UL HEMOGLOBIN (test code = 1003) 13.7 G/DL HEMATOCRIT (test code = 1004) 40.7 % MCV (test code = 1005) 84.1 fL MCH (test code = 1006) 28.3 PG MCHC (test code = 1007) 33.7 G/DL RDW (test code = 1038) 13.4 % NEUTROPHILS (test code = 1008) 71.3 % LYMPHOCYTES (test code = 1010) 19.3 % MONOCYTES (test code = 1011) 5.2 % EOSINOPHILS (test code = 1012) 3.2 % BASOPHILS (test code = 1013) 0.5 % IMMATURE GRANULOCYTES (test code = 1036) 0.5 % NUCLEATED RBCS (test code = 1065) 0.0 /100WBC'S PLATELET COUNT (test code = 1015) 249 K/UL ABSOLUTE NEUTROPHILS (test c ode = 1066) 5.51 K/UL ABSOLUTE LYMPHOCYTES (test c ode = 1067) 1.49 K/UL ABSOLUTE MONOCYTES (test cod e = 1068) 0.40 K/UL ABSOLUTE EOSINOPHILS (test c ode = 1040) 0.25 K/UL ABSOLUTE BASOPHILS (test cod e = 1069) 0.04 K/UL ABS IMMATURE GRANULOCYTES (t est code = 1020) 0.04 K/UL ABS NUCLEATED RBCS (test cod e = 74538) 0.00 K/UL Vasquez MarlowHEMOGLOBIN [id number] 00:00:00* Test Item Value Reference Range Interpretation Comme nts HEMOGLOBIN A1c (test code = 46441) 5.7 % Vasquez MarlowCOMPREHENSIVE METABOLIC [id number] 00:00:00* Test Item Value Reference Range Interpretation Comme nts GLUCOSE (test code = 2217) 100 MG/DL BUN (test code = 2208) 12 MG/DL CREATININE (test code = 2214) 1.01 MG/DL eGFR (2020 CKD-EPI) (test co de = 03193) 87 ML/MIN/1.73 CALC BUN/CREAT (test code = 2235) 12 RATIO SODIUM (test code = 2231) 141 MEQ/L POTASSIUM (test code = 2228) 4.2 MEQ/L CHLORIDE (test code = 2215) 104 MEQ/L CARBON DIOXIDE (test code = 2206) 27 MEQ/L CALCIUM (test code = 2209) 9.8 MG/DL PROTEIN, TOTAL (test code = 2229) 7.2 G/DL ALBUMIN (test code = 2201) 4.1 G/DL CALC GLOBULIN (test code = 2240) 3.1 G/DL CALC A/G RATIO (test code = 2234) 1.3 RATIO BILIRUBIN, TOTAL (test code = 2207) 0.4 MG/DL ALKALINE PHOSPHATASE (test code = 2204) 73 U/L AST (test code = 2218) 12 U/L ALT (test code = 2219) 11 U/L Vasquez MarlowTHYROID II PROFILE (T3U, T4, T7, TSH)2023-02-07 00:00:00* Test Item Value Reference Range Interpretation Comme nts T-UPTAKE (test code = 2817) 30.2 % THYROX. BIND. CAPAC. (test c ode = 89173) 1.1 T4 (THYROXINE) (test code = 2819) 6.5 UG/DL CORRECTED T4 (FTI) (test cod e = 2820) 5.9 UG/DL TSH, THIRD GENERATION (test code = 2821) 2.260 UIU/ML Vasquez MarlowLILIAVER (HEPATIC) FUNCTION [id number] 00:00:00* Test Item Value Reference Range Interpretation Comme nts PROTEIN, TOTAL (test code = 2229) 7.2 G/DL ALBUMIN (test code = 2201) 4.1 G/DL BILIRUBIN, TOTAL (test code = 7) 0.4 MG/DL BILIRUBIN, DIRECT (test code = 2021) 0.1 MG/DL ALKALINE PHOSPHATASE (test c ode = 2204) 73 U/L AST (test code = 2218) 12 U/L ALT (test code = 2219) 11 U/L Vasquez [id number] 00:00:00* Test Item Value Reference Range Interpretation Comme nts LITHIUM (test code = 2039) 0.31 MEQ/L Vasquez MarlowCBC W/AUTO [id number] 00:00:00* Test Item Value Reference Range Interpretation Comme nts WBC (test code = 1001) 7.7 K/UL RBC (test code = 1002) 4.84 M/UL HEMOGLOBIN (test code = 1003) 13.7 G/DL HEMATOCRIT (test code = 1004) 40.7 % MCV (test code = 1005) 84.1 fL MCH (test code = 1006) 28.3 PG MCHC (test code = 1007) 33.7 G/DL RDW (test code = 1038) 13.4 % NEUTROPHILS (test code = 1008) 71.3 % LYMPHOCYTES (test code = 1010) 19.3 % MONOCYTES (test code = 1011) 5.2 % EOSINOPHILS (test code = 1012) 3.2 % BASOPHILS (test code = 1013) 0.5 % IMMATURE GRANULOCYTES (test code = 1036) 0.5 % NUCLEATED RBCS (test code = 1065) 0.0 /100WBC'S PLATELET COUNT (test code = 1015) 249 K/UL ABSOLUTE NEUTROPHILS (test c ode = 1066) 5.51 K/UL ABSOLUTE LYMPHOCYTES (test c ode = 1067) 1.49 K/UL ABSOLUTE MONOCYTES (test cod e = 1068) 0.40 K/UL ABSOLUTE EOSINOPHILS (test c ode = 1040) 0.25 K/UL ABSOLUTE BASOPHILS (test cod e = 1069) 0.04 K/UL ABS IMMATURE GRANULOCYTES (t est code = 1020) 0.04 K/UL ABS NUCLEATED RBCS (test cod e = 39304) 0.00 K/UL Vasquez MarlowHEMOGLOBIN [id number] 00:00:00* Test Item Value Reference Range Interpretation Comme nts HEMOGLOBIN A1c (test code = 80308) 5.7 % Vasquez MarlowCOMPREHENSIVE METABOLIC [id number] 00:00:00* Test Item Value Reference Range Interpretation Comme nts GLUCOSE (test code = 2217) 100 MG/DL BUN (test code = 2208) 12 MG/DL CREATININE (test code = 2214) 1.01 MG/DL eGFR (2020 CKD-EPI) (test co de = 06219) 87 ML/MIN/1.73 CALC BUN/CREAT (test code = 2235) 12 RATIO SODIUM (test code = 2231) 141 MEQ/L POTASSIUM (test code = 2228) 4.2 MEQ/L CHLORIDE (test code = 2215) 104 MEQ/L CARBON DIOXIDE (test code = 2206) 27 MEQ/L CALCIUM (test code = 2209) 9.8 MG/DL PROTEIN, TOTAL (test code = 2229) 7.2 G/DL ALBUMIN (test code = 2201) 4.1 G/DL CALC GLOBULIN (test code = 2240) 3.1 G/DL CALC A/G RATIO (test code = 2234) 1.3 RATIO BILIRUBIN, TOTAL (test code = 2207) 0.4 MG/DL ALKALINE PHOSPHATASE (test code = 2204) 73 U/L AST (test code = 2218) 12 U/L ALT (test code = 2219) 11 U/L Vasquez MarlowTHYROID II PROFILE (T3U, T4, T7, TSH)2023-02-07 00:00:00* Test Item Value Reference Range Interpretation Comme nts T-UPTAKE (test code = 2817) 30.2 % THYROX. BIND. CAPAC. (test c ode = 52823) 1.1 T4 (THYROXINE) (test code = 2819) 6.5 UG/DL CORRECTED T4 (FTI) (test cod e = 2820) 5.9 UG/DL TSH, THIRD GENERATION (test code = 2821) 2.260 UIU/ML Vasquez ChowdaryVER (HEPATIC) FUNCTION [id number] 00:00:00* Test Item Value Reference Range Interpretation Comme nts PROTEIN, TOTAL (test code = 2229) 7.2 G/DL ALBUMIN (test code = 2201) 4.1 G/DL BILIRUBIN, TOTAL (test code = 2207) 0.4 MG/DL BILIRUBIN, DIRECT (test code = 2021) 0.1 MG/DL ALKALINE PHOSPHATASE (test c ode = 2204) 73 U/L AST (test code = 2218) 12 U/L ALT (test code = 2219) 11 U/L Vasquez [id number] 00:00:00* Test Item Value Reference Range Interpretation Comme nts LITHIUM (test code = 2039) 0.31 MEQ/L Vasquez MarlowCBC W/AUTO [id number] 00:00:00* Test Item Value Reference Range Interpretation Comme nts WBC (test code = 1001) 7.7 K/UL RBC (test code = 1002) 4.84 M/UL HEMOGLOBIN (test code = 1003) 13.7 G/DL HEMATOCRIT (test code = 1004) 40.7 % MCV (test code = 1005) 84.1 fL MCH (test code = 1006) 28.3 PG MCHC (test code = 1007) 33.7 G/DL RDW (test code = 1038) 13.4 % NEUTROPHILS (test code = 1008) 71.3 % LYMPHOCYTES (test code = 1010) 19.3 % MONOCYTES (test code = 1011) 5.2 % EOSINOPHILS (test code = 1012) 3.2 % BASOPHILS (test code = 1013) 0.5 % IMMATURE GRANULOCYTES (test code = 1036) 0.5 % NUCLEATED RBCS (test code = 1065) 0.0 /100WBC'S PLATELET COUNT (test code = 1015) 249 K/UL ABSOLUTE NEUTROPHILS (test c ode = 1066) 5.51 K/UL ABSOLUTE LYMPHOCYTES (test c ode = 1067) 1.49 K/UL ABSOLUTE MONOCYTES (test cod e = 1068) 0.40 K/UL ABSOLUTE EOSINOPHILS (test c ode = 1040) 0.25 K/UL ABSOLUTE BASOPHILS (test cod e = 1069) 0.04 K/UL ABS IMMATURE GRANULOCYTES (t est code = 1020) 0.04 K/UL ABS NUCLEATED RBCS (test cod e = 02858) 0.00 K/UL Vasquez MarlowHEMOGLOBIN [id number] 00:00:00* Test Item Value Reference Range Interpretation Comme nts HEMOGLOBIN A1c (test code = 26492) 5.7 % Vasquez MarlowCOMPREHENSIVE METABOLIC [id number] 00:00:00* Test Item Value Reference Range Interpretation Comme nts GLUCOSE (test code = 2217) 100 MG/DL BUN (test code = 2208) 12 MG/DL CREATININE (test code = 2214) 1.01 MG/DL eGFR (2020 CKD-EPI) (test co de = 03176) 87 ML/MIN/1.73 CALC BUN/CREAT (test code = 2235) 12 RATIO SODIUM (test code = 2231) 141 MEQ/L POTASSIUM (test code = 2228) 4.2 MEQ/L CHLORIDE (test code = 2215) 104 MEQ/L CARBON DIOXIDE (test code = 2206) 27 MEQ/L CALCIUM (test code = 2209) 9.8 MG/DL PROTEIN, TOTAL (test code = 2229) 7.2 G/DL ALBUMIN (test code = 2201) 4.1 G/DL CALC GLOBULIN (test code = 2240) 3.1 G/DL CALC A/G RATIO (test code = 2234) 1.3 RATIO BILIRUBIN, TOTAL (test code = 2207) 0.4 MG/DL ALKALINE PHOSPHATASE (test code = 2204) 73 U/L AST (test code = 2218) 12 U/L ALT (test code = 2219) 11 U/L Vasquez MarlowTHYROID II PROFILE (T3U, T4, T7, TSH)2023-02-07 00:00:00* Test Item Value Reference Range Interpretation Comme nts T-UPTAKE (test code = 2817) 30.2 % THYROX. BIND. CAPAC. (test c ode = 27433) 1.1 T4 (THYROXINE) (test code = 2819) 6.5 UG/DL CORRECTED T4 (FTI) (test cod e = 2820) 5.9 UG/DL TSH, THIRD GENERATION (test code = 2821) 2.260 UIU/ML Vasquez Mcdermott (HEPATIC) FUNCTION [id number] 00:00:00* Test Item Value Reference Range Interpretation Comme nts PROTEIN, TOTAL (test code = 2229) 7.2 G/DL ALBUMIN (test code = 2201) 4.1 G/DL BILIRUBIN, TOTAL (test code = 2207) 0.4 MG/DL BILIRUBIN, DIRECT (test code = 2021) 0.1 MG/DL ALKALINE PHOSPHATASE (test c ode = 2204) 73 U/L AST (test code = 2218) 12 U/L ALT (test code = 2219) 11 U/L Vasquez [id number] 00:00:00* Test Item Value Reference Range Interpretation Comme nts LITHIUM (test code = 2039) 0.31 MEQ/L Vasquez MarlowCBC W/AUTO [id number] 00:00:00* Test Item Value Reference Range Interpretation Comme nts WBC (test code = 1001) 7.7 K/UL RBC (test code = 1002) 4.84 M/UL HEMOGLOBIN (test code = 1003) 13.7 G/DL HEMATOCRIT (test code = 1004) 40.7 % MCV (test code = 1005) 84.1 fL MCH (test code = 1006) 28.3 PG MCHC (test code = 1007) 33.7 G/DL RDW (test code = 1038) 13.4 % NEUTROPHILS (test code = 1008) 71.3 % LYMPHOCYTES (test code = 1010) 19.3 % MONOCYTES (test code = 1011) 5.2 % EOSINOPHILS (test code = 1012) 3.2 % BASOPHILS (test code = 1013) 0.5 % IMMATURE GRANULOCYTES (test code = 1036) 0.5 % NUCLEATED RBCS (test code = 1065) 0.0 /100WBC'S PLATELET COUNT (test code = 1015) 249 K/UL ABSOLUTE NEUTROPHILS (test c ode = 1066) 5.51 K/UL ABSOLUTE LYMPHOCYTES (test c ode = 1067) 1.49 K/UL ABSOLUTE MONOCYTES (test cod e = 1068) 0.40 K/UL ABSOLUTE EOSINOPHILS (test c ode = 1040) 0.25 K/UL ABSOLUTE BASOPHILS (test cod e = 1069) 0.04 K/UL ABS IMMATURE GRANULOCYTES (t est code = 1020) 0.04 K/UL ABS NUCLEATED RBCS (test cod e = 15520) 0.00 K/UL Vasquez MarlowHEMOGLOBIN [id number] 00:00:00* Test Item Value Reference Range Interpretation Comme nts HEMOGLOBIN A1c (test code = 96582) 5.7 % Vasquez MarlowCOMPREHENSIVE METABOLIC [id number] 00:00:00* Test Item Value Reference Range Interpretation Comme nts GLUCOSE (test code = 2217) 100 MG/DL BUN (test code = 2208) 12 MG/DL CREATININE (test code = 2214) 1.01 MG/DL eGFR (2020 CKD-EPI) (test co de = 54580) 87 ML/MIN/1.73 CALC BUN/CREAT (test code = 2235) 12 RATIO SODIUM (test code = 2231) 141 MEQ/L POTASSIUM (test code = 2228) 4.2 MEQ/L CHLORIDE (test code = 2215) 104 MEQ/L CARBON DIOXIDE (test code = 2206) 27 MEQ/L CALCIUM (test code = 2209) 9.8 MG/DL PROTEIN, TOTAL (test code = 2229) 7.2 G/DL ALBUMIN (test code = 2201) 4.1 G/DL CALC GLOBULIN (test code = 2240) 3.1 G/DL CALC A/G RATIO (test code = 2234) 1.3 RATIO BILIRUBIN, TOTAL (test code = 2207) 0.4 MG/DL ALKALINE PHOSPHATASE (test code = 2204) 73 U/L AST (test code = 2218) 12 U/L ALT (test code = 2219) 11 U/L Vasquez MarlowTHYROID II PROFILE (T3U, T4, T7, TSH)2023-02-07 00:00:00* Test Item Value Reference Range Interpretation Comme nts T-UPTAKE (test code = 2817) 30.2 % THYROX. BIND. CAPAC. (test c ode = 59450) 1.1 T4 (THYROXINE) (test code = 2819) 6.5 UG/DL CORRECTED T4 (FTI) (test cod e = 2820) 5.9 UG/DL TSH, THIRD GENERATION (test code = 2821) 2.260 UIU/ML Vasquez Carey KashmirLIVER (HEPATIC) FUNCTION [id number] 00:00:00* Test Item Value Reference Range Interpretation Comme nts PROTEIN, TOTAL (test code = 2229) 7.2 G/DL ALBUMIN (test code = 2201) 4.1 G/DL BILIRUBIN, TOTAL (test code = 2206) 0.4 MG/DL BILIRUBIN, DIRECT (test code = 2021) 0.1 MG/DL ALKALINE PHOSPHATASE (test c ode = 2204) 73 U/L AST (test code = 2218) 12 U/L ALT (test code = 2219) 11 U/L Vasquez [id number] 00:00:00* Test Item Value Reference Range Interpretation Comme nts LITHIUM (test code = 2038) 0.31 MEQ/L Vasquez [id number] 14:31:00* Test Item Value Reference Range Interpretation Comme nts SURGICAL (test code = SR) R UN DATE: 12/15/22 [facility] PAGE 1 RUN TIME: 1431 Specimen Inquiry RUN USER: INTERFACE P ATIENT: APOORVA LUCIO LOC: KAMRYN Phillips #: [id number] AGE/SX: 57/M ROOM: RE12/10/22REG DR: Misty Carpenter MD : 67 BED: DIS: STATUS: PRE SDC TLOC: SPEC #: [id number] RECD: 12/12/22 STATUS: JOSE MCFARLAND #: [id number] JENNIFER: 12/12/22- SUBM DR: Misty Carepnter MD ENTERED: 12/12/22 SP TYPE: SURGICAL OTHR DR: No Primary or Family PhysicianORDERED: [id number], 02499, ANATOMIC SPEC COPIES TO: No Primary or Family Physician Misty Carpenter MD [address] [place] [address] PROCEDURES: 20539 (12/12/22) 47234 (12/15/22) TISSUES: A. STOMACH BIOPSY/POLYP - ANTRUM BODY CLINICAL HISTORY GASTRITIS, DUODENITIS FINAL DIAGNOSIS Stomach, antrum and body, biopsy:Chronic inactive gastritis. GROSS DESCRIPTION The specimen received in formalin in a container labeled with the patient's name anddesignated "antrum and body biopsy" consists of multiple fragments of tissue, measuring 0.9cm. The specimen is entirely submitted in one cassette. Technical component performed at [facility],[address] [place] [address] Unless gross only, the diagnosis is based upon microscopic examination.Immunohistochemistr y: This test was developed and its performance characteristicsdetermined by this laboratory. It has not been approved nor does it need approvalby the [place] FDA. Appropriate positive and negative controls are reviewed and judgedto be acceptable. This laboratory is certified under the Clinical Laboratory ImprovementAmendments (CLIA-88) as qualified to perform high complexity clinical laboratory testing. CONTINUED ON NEXT PAGE R UN DATE: 12/15/22 [facility] - LAB PAGE 2 RUN TIME: 1431 Specimen Inquiry RUN USER: INTERFACE S PEC #: [id number] PATIENT: APOORVA LUCIO #[id number] (Continued) MICROSCOPIC DESCRIPTION A microscopic examination was performed. Due to the histologic findings, H. pyloriimmunohistochemical stain is performed and is negative. CLINICAL INFORMATION MELENA, EPIGASTRIC PAIN, DYSPEPSIA, COLON CANCER SCREENING -------- Signed SIGNATURE ON FILE Kieran Robles 12/15/22 1431 END OF REPORT BASIC METABOLIC [id number] 07:57:00* Test Item Value Reference Range Interpretation Comme nts SODIUM (test code = NA) 141 mEq/L 134-147 N POTASSIUM (test code = K) 4.3 mEq/L 3.4-5.0 N CHLORIDE (test code = CL) 106 mEq/L 100-108 N CARBON DIOXIDE (test code = CO2) 26 mEq/l 21-33 N ANION GAP (test code = GAP) 14 0-20 N GLUCOSE (test code = GLU) 107 mg/dL 70-110 N BLOOD UREA NITROGEN (test code = BUN) 14 mg/dL 7-18 N GLOMERULAR FILTRATION RATE (test code = GFR) 100.2 90-95 H The Glomerular Filtration Rate is a calculated parameterbased on serum Creatinine, patient age and sex. GFR valuesless than 60 mL/min/1.73 square meters are indicative ofChronic Kidney Disease. Values less than 15 mL/min/1.73square meters indicate Kidney failure. The calculation forGFR is based on the CKD-EPI (2020) calculation. This formulais race indifferent and is the recommended formula for GFRby the National Kidney Foundation for Adults.The GFR will not calculate if the sex is unknown or if thepatient's age is <18 years. CREATININE (test code = CREAT) 0.9 mg/dL 0.6-1.3 N CALCIUM (test code = CA) 9.1 mg/dL 8.0-10.5 N BASIC METABOLIC [id number] 11:42:00* Test Item Value Reference Range Interpretation Comme nts SODIUM (test code = NA) 139 mEq/L 134-147 N POTASSIUM (test code = K) 4.1 mEq/L 3.4-5.0 N CHLORIDE (test code = CL) 103 mEq/L 100-108 N CARBON DIOXIDE (test code = CO2) 28 mEq/l 21-33 N ANION GAP (test code = GAP) 13 0-20 N GLUCOSE (test code = GLU) 122 mg/dL 70-110 H BLOOD UREA NITROGEN (test code = BUN) 13 mg/dL 7-18 N GLOMERULAR FILTRATION RATE (test code = GFR) 88.3 90-95 L The Glomerular Filtration Rate is a calculated parameterbased on serum Creatinine, patient age and sex. GFR valuesless than 60 mL/min/1.73 square meters are indicative ofChronic Kidney Disease. Values less than 15 mL/min/1.73square meters indicate Kidney failure. The calculation forGFR is based on the CKD-EPI (202) calculation. This formulais race indifferent and is the recommended formula for GFRby the National Kidney Foundation for Adults.The GFR will not calculate if the sex is unknown or if thepatient's age is <18 years. CREATININE (test code = CREAT) 1.0 mg/dL 0.6-1.3 N CALCIUM (test code = CA) 9.6 mg/dL 8.0-10.5 N CBC W/AUTO [id number] 11:23:00* Test Item Value Reference Range Interpretation Comme nts WHITE BLOOD CELL (test code = WBC) 8.6 x10 3/uL 4.5-11.0 N RED BLOOD CELL (test code = RBC) 4.94 x10 6/uL 4.00-5.60 N HEMOGLOBIN (test code = HGB) 13.6 g/dL 12.5-16.9 N HEMATOCRIT (test code = HCT) 40.8 % 37.5-50.7 N MEAN CELL VOLUME (test code = MCV) 82.6 fL 81.0-99.0 N MEAN CELL HGB (test code = MCH) 27.5 pg 27.0-33.0 N MEAN CELL HGB CONCETRATION (test code = MCHC) 33.3 g/dL 33.0-37.0 N RED CELL DISTRIBUTION WIDTH CV (test code = RDW) 13.0 % 11.5-14.5 N RED CELL DISTRIBUTION WIDTH SD (test code = RDW-SD) 39.1 fL 37.0-54.0 N PLATELET COUNT (test code = PLT) 258 x10 3/uL 150-400 N MEAN PLATELET VOLUME (test c ode = MPV) 9.1 fL 7.0-9.0 H NEUTROPHIL % (test code = NT%) 72.8 % 56.0-77.0 N IMMATURE GRANULOCYTE % (test code = IG%) 0.6 % 0.0-2.0 N LYMPHOCYTE % (test code = LY%) 19.3 % 14.0-32.0 N MONOCYTE % (test code = MO%) 4.7 % 4.8-9.0 L EOSINOPHIL % (test code = EO%) 2.1 % 0.3-3.7 N BASOPHIL % (test code = BA%) 0.5 % 0.0-2.0 N NUCLEATED RBC % (test code = NRBC%) 0.0 % 0-0 N NEUTROPHIL # (test code = NT#) 6.27 x10 3/uL 2.0-7.6 N IMMATURE GRANULOCYTE # (test code = IG#) 0.05 x10 3/uL 0.00-0.03 H LYMPHOCYTE # (test code = LY#) 1.66 x10 3/uL 1.0-3.8 N MONOCYTE # (test code = MO#) 0.40 x10 3/uL 0.1-0.8 N EOSINOPHIL # (test code = EO#) 0.18 x10 3/uL 0.0-0.2 N BASOPHIL # (test code = BA#) 0.04 x10 3/uL 0.0-0.2 N NUCLEATED RBC # (test code = NRBC#) 0.00 x10 3/uL 0.0-0.1 N MANUAL DIFF REQUIRED (test c ode = MDIFF) NO - XR CHEST 2 [id number] 00:00:00 [facility] : 1965 Sex: M FAX: Misty Pack MD [phone] [place]: St: PRE FAX: Nell Dunlap Name: APOORVA LUCIO [facility] Franci Grover :1965 Age/S: 57/M [address] [place] [address] Blvd Unit #: [id number] Loc: [place] [address] Phys: Nell Dunlap NP Acct: [id number] Dis Date: Status: PRE SDC PHONE #: [phone] Exam Nasim e: 12/10/2022 1125 FAX #: [phone] Reason: PRE OP EXAMS: CPT CODE: [id number] XR CHEST 2 V [id number] PROCEDURE INFORMATION: Exam: XR Chest Exam date and time: 12/10/2022 11:21 AM Age: 57 years old Clinical indication: Other: Pre op TECHNIQUE: Imaging protocol: Radiologic exam of the chest. Views: 2 views. PA and Lateral COMPARISON: No relevant prior studies available. FINDINGS: Lungs: There are normal lung volumes without consolidation or interstitial opacities. Pleural spaces: Unremarkable. Nopleural effusion. No pneumothorax. Heart/Mediastinum: The heart size is normal. The pulmonary vasculature is normal. The mediastinal contour is normal. The trachea is midline. Bones/joints: No acute abnormality seen. IMPRESSION: No acute cardiopulmonary findings. at 1239 Reported and signed by: Rodri Ervin M.D. CC: Misty Carpenter MD; Nell Dunlap NP Technologist: RT Fern(R) Trnscrd Date/Time/By: ([id number]) : By: Cristel Orig Print D/T: S: 12/10/2022 (4185) PAGE 1 Signed ReportPSA, TOTAL, MEDICARE [id number] 06:18:52* Test Item Value Reference Range Interpretation Comme nts PSA, TOTAL (test code = 2606) 2.19 NG/ML See_Comment NOTE: Methodolog y is Shira Emilie Electrochemiluminescence Immunoassay traceable to WHO reference standard 96/760. UNLESS OTHERWISE INDICATED, ALL TESTING PERFORMED [facility] [employer] [address] [place] [address] LOOM FIXER APPRENTICE: COLEMAN NAJERA M.D. [place] NUMBER [id number] [facility] [place]. [id number] [Automated message] The system which generated this result transmitted reference range: <=4.00. The reference range was not used to interpret this result as normal/abnormal. COMPREHENSIVE METABOLIC [id number] 04:30:08* Test Item Value Reference Range Interpretation Comme nts GLUCOSE (test code = 7) 88 MG/DL 70-99 BUN (test code = 2207) 14 MG/DL 6-20 CREATININE (test code = 221) 1.00 MG/DL 0.80-1.40 eGFR (2020 CKD-EPI) (test code = 07324) 89 ML/MIN/1.73 >60 CALC BUN/CREAT (test code = 2235) 14 RATIO 6-28 SODIUM (test code = 223) 140 MEQ/L 133-146 POTASSIUM (test code = 2228) 4.5 MEQ/L 3.5-5.4 CHLORIDE (test code = 2215) 99 MEQ/L 95-107 CARBON DIOXIDE (test code = 2206) 29 MEQ/L 19-31 CALCIUM (test code = 2209) 10.1 MG/DL 8.5-10.5 PROTEIN, TOTAL (test code = 2229) 7.3 G/DL 6.1-8.3 ALBUMIN (test code = 2201) 4.3 G/DL 3.5-5.2 CALC GLOBULIN (test code = 2240) 3.0 G/DL 1.9-3.7 CALC A/G RATIO (test code = 2234) 1.4 RATIO 1.0-2.6 BILIRUBIN, TOTAL (test code = 2207) 0.5 MG/DL See_Comment [Automated me ssage] The system which generated this result transmitted reference range: <=1.2. The reference range was not used to interpret this result as normal/abnormal. ALKALINE PHOSPHATASE (test code = 4) 78 U/L 40-121 AST (test code = 2218) 15 U/L 9-50 ALT (test code = 2219) 19 U/L 5-50 LIPID [id number] 04:30:08* Test Item Value Reference Range Interpretation Comme nts CHOLESTEROL (test code = 2210) 167 MG/DL <200 TRIGLYCERIDES (test code = 2232) 182 MG/DL <150 H HDL CHOLESTEROL (test code = 2220) 31 MG/DL >39 L CALC LDL CHOL (test code = 2237) 106 MG/DL <100 H NOTE: CALCULATED LDL IS BASED ON TODD-LENTZ METHOD WHICHINCLUDES ADJUSTABLE TRIGLYCERIDE:VLDL CHOLESTEROL RATIO.THIS FACTOR VARIES BY MEASURED TRIGLYCERIDE AND NON-HDLCHOLESTEROL CONCENTRATIONS WITH INCREASED CALCULATED LDL SEENIN HIGHER TRIGLYCERIDE OR LOWER NON-HDL SPECIMENS. FOR MOREINFORMATION, SEE CLIENT ANNOUNCEMENT AT [email or web address] RATIO LDL/HDL (test code = 2238) 3.42 RATIO <3.55 CBC W/AUTO DIFF WITH [id number] 03:21:03* Test Item Value Reference Range Interpretation Comme nts WBC (test code = 1001) 11.2 K/UL 3.5-11.0 H RBC (test code = 1002) 4.77 M/UL 4.50-6.10 HEMOGLOBIN (test code = 1003) 14.0 G/DL 13.5-17.0 HEMATOCRIT (test code = 1004) 40.4 % 40.0-51.0 MCV (test code = 1005) 84.7 fL 80.0-99.0 MCH (test code = 1006) 29.4 PG 25.0-33.0 MCHC (test code = 1007) 34.7 G/DL 31.0-36.0 RDW (test code = 1038) 12.5 % 11.5-15.0 NEUTROPHILS (test code = 1008) 73.3 % LYMPHOCYTES (test code = 1010) 18.7 % MONOCYTES (test code = 1011) 5.5 % EOSINOPHILS (test code = 1012) 1.3 % BASOPHILS (test code = 1013) 0.4 % IMMATURE GRANYLOCYTES (test code = 1036) 0.8 % NUCLEATED RBCS (test code = 1065) 0.0 /100 WBC'S See_Comment [Automated RadarChilea ge] The system which generated this result transmitted reference range: 0.0. The reference range was not used to interpret this result as normal/abnormal. PLATELET COUNT (test code = 1015) 293 K/UL 130-400 ABSOLUTE NEUTROPHILS (test code = 1066) 8.19 K/UL 1.50-7.50 H ABSOLUTE LYMPHOCYTES (test code = 1067) 2.09 K/UL 1.00-4.00 ABSOLUTE MONOCYTES (test code = 1068) 0.61 K/UL 0.20-1.00 ABSOLUTE EOSINOPHILS (test code = 1040) 0.14 K/UL 0.00-0.50 ABSOLUTE BASOPHILS (test code = 1069) 0.04 K/UL 0.00-0.20 ABS IMMATURE GRANULOCYTES (test code = 1020) 0.09 K/UL 0.00-0.10 ABS NUCLEATED RBCS (test code = 56812) 0.00 K/UL 0.00-0.11 COMPREHENSIVE METABOLIC [id number] 00:00:00* Test Item Value Reference Range Interpretation Comme nts GLUCOSE (test code = 2217) 88 MG/DL BUN (test code = 2208) 14 MG/DL CREATININE (test code = 2214) 1.00 MG/DL eGFR (2020 CKD-EPI) (test co de = 41931) 89 ML/MIN/1.73 CALC BUN/CREAT (test code = 2235) 14 RATIO SODIUM (test code = 2231) 140 MEQ/L POTASSIUM (test code = 2228) 4.5 MEQ/L CHLORIDE (test code = 2215) 99 MEQ/L CARBON DIOXIDE (test code = 2206) 29 MEQ/L CALCIUM (test code = 2209) 10.1 MG/DL PROTEIN, TOTAL (test code = 2229) 7.3 G/DL ALBUMIN (test code = 2201) 4.3 G/DL CALC GLOBULIN (test code = 2240) 3.0 G/DL CALC A/G RATIO (test code = 2234) 1.4 RATIO BILIRUBIN, TOTAL (test code = 2207) 0.5 MG/DL ALKALINE PHOSPHATASE (test code = 2204) 78 U/L AST (test code = 2218) 15 U/L ALT (test code = 2219) 19 U/L Vasquez Ibarra W/AUTO [id number] 00:00:00* Test Item Value Reference Range Interpretation Comme nts WBC (test code = 1001) 11.2 K/UL RBC (test code = 1002) 4.77 M/UL HEMOGLOBIN (test code = 1003) 14.0 G/DL HEMATOCRIT (test code = 1004) 40.4 % MCV (test code = 1005) 84.7 fL MCH (test code = 1006) 29.4 PG MCHC (test code = 1007) 34.7 G/DL RDW (test code = 1038) 12.5 % NEUTROPHILS (test code = 1008) 73.3 % LYMPHOCYTES (test code = 1010) 18.7 % MONOCYTES (test code = 1011) 5.5 % EOSINOPHILS (test code = 1012) 1.3 % BASOPHILS (test code = 1013) 0.4 % IMMATURE GRANYLOCYTES (test code = 1036) 0.8 % NUCLEATED RBCS (test code = 1065) 0.0 /100WBC'S PLATELET COUNT (test code = 1015) 293 K/UL ABSOLUTE NEUTROPHILS (test c ode = 1066) 8.19 K/UL ABSOLUTE LYMPHOCYTES (test c ode = 1067) 2.09 K/UL ABSOLUTE MONOCYTES (test cod e = 1068) 0.61 K/UL ABSOLUTE EOSINOPHILS (test c ode = 1040) 0.14 K/UL ABSOLUTE BASOPHILS (test cod e = 1069) 0.04 K/UL ABS IMMATURE GRANULOCYTES (t est code = 1020) 0.09 K/UL ABS NUCLEATED RBCS (test cod e = 55254) 0.00 K/UL Vasquez MarlowLIPID [id number] 00:00:00* Test Item Value Reference Range Interpretation Comme nts CHOLESTEROL (test code = 2210) 167 MG/DL TRIGLYCERIDES (test code = 2232) 182 MG/DL HDL CHOLESTEROL (test code = 2220) 31 MG/DL CALC LDL CHOL (test code = 2237) 106 MG/DL RISK RATIO LDL/HDL (test cod e = 2238) 3.42 RATIO Vasquez Cherry Kashmir[place]A, TOTAL, MEDICARE [id number] 00:00:00* Test Item Value Reference Range Interpretation Comme nts PSA, TOTAL (test code = 2606) 2.19 NG/ML Vasquez Cherry KashmirCOMPREHENSIVE METABOLIC [id number] 00:00:00* Test Item Value Reference Range Interpretation Comme nts GLUCOSE (test code = 2217) 88 MG/DL BUN (test code = 2208) 14 MG/DL CREATININE (test code = 2214) 1.00 MG/DL eGFR (2020 CKD-EPI) (test co de = 08540) 89 ML/MIN/1.73 CALC BUN/CREAT (test code = 2235) 14 RATIO SODIUM (test code = 2231) 140 MEQ/L POTASSIUM (test code = 2228) 4.5 MEQ/L CHLORIDE (test code = 2215) 99 MEQ/L CARBON DIOXIDE (test code = 2206) 29 MEQ/L CALCIUM (test code = 2209) 10.1 MG/DL PROTEIN, TOTAL (test code = 2229) 7.3 G/DL ALBUMIN (test code = 2201) 4.3 G/DL CALC GLOBULIN (test code = 2240) 3.0 G/DL CALC A/G RATIO (test code = 2234) 1.4 RATIO BILIRUBIN, TOTAL (test code = 2207) 0.5 MG/DL ALKALINE PHOSPHATASE (test code = 2204) 78 U/L AST (test code = 2218) 15 U/L ALT (test code = 2219) 19 U/L [facility] W/AUTO [id number] 00:00:00* Test Item Value Reference Range Interpretation Comme nts WBC (test code = 1001) 11.2 K/UL RBC (test code = 1002) 4.77 M/UL HEMOGLOBIN (test code = 1003) 14.0 G/DL HEMATOCRIT (test code = 1004) 40.4 % MCV (test code = 1005) 84.7 fL MCH (test code = 1006) 29.4 PG MCHC (test code = 1007) 34.7 G/DL RDW (test code = 1038) 12.5 % NEUTROPHILS (test code = 1008) 73.3 % LYMPHOCYTES (test code = 1010) 18.7 % MONOCYTES (test code = 1011) 5.5 % EOSINOPHILS (test code = 1012) 1.3 % BASOPHILS (test code = 1013) 0.4 % IMMATURE GRANYLOCYTES (test code = 1036) 0.8 % NUCLEATED RBCS (test code = 1065) 0.0 /100WBC'S PLATELET COUNT (test code = 1015) 293 K/UL ABSOLUTE NEUTROPHILS (test c ode = 1066) 8.19 K/UL ABSOLUTE LYMPHOCYTES (test c ode = 1067) 2.09 K/UL ABSOLUTE MONOCYTES (test cod e = 1068) 0.61 K/UL ABSOLUTE EOSINOPHILS (test c ode = 1040) 0.14 K/UL ABSOLUTE BASOPHILS (test cod e = 1069) 0.04 K/UL ABS IMMATURE GRANULOCYTES (t est code = 1020) 0.09 K/UL ABS NUCLEATED RBCS (test cod e = 89085) 0.00 K/UL Vasquez MarlowLIPID [id number] 00:00:00* Test Item Value Reference Range Interpretation Comme nts CHOLESTEROL (test code = 2210) 167 MG/DL TRIGLYCERIDES (test code = 2232) 182 MG/DL HDL CHOLESTEROL (test code = 2220) 31 MG/DL CALC LDL CHOL (test code = 2237) 106 MG/DL RISK RATIO LDL/HDL (test cod e = 2238) 3.42 RATIO Vasquez MarlowPSA, TOTAL, MEDICARE [id number] 00:00:00* Test Item Value Reference Range Interpretation Comme nts PSA, TOTAL (test code = 2606) 2.19 NG/ML Vasquez MarlowCOMPREHENSIVE METABOLIC [id number] 00:00:00* Test Item Value Reference Range Interpretation Comme nts GLUCOSE (test code = 2217) 88 MG/DL BUN (test code = 2208) 14 MG/DL CREATININE (test code = 2214) 1.00 MG/DL eGFR (2020 CKD-EPI) (test co de = 22889) 89 ML/MIN/1.73 CALC BUN/CREAT (test code = 2235) 14 RATIO SODIUM (test code = 2231) 140 MEQ/L POTASSIUM (test code = 2228) 4.5 MEQ/L CHLORIDE (test code = 2215) 99 MEQ/L CARBON DIOXIDE (test code = 2206) 29 MEQ/L CALCIUM (test code = 2209) 10.1 MG/DL PROTEIN, TOTAL (test code = 2229) 7.3 G/DL ALBUMIN (test code = 2201) 4.3 G/DL CALC GLOBULIN (test code = 2240) 3.0 G/DL CALC A/G RATIO (test code = 2234) 1.4 RATIO BILIRUBIN, TOTAL (test code = 2207) 0.5 MG/DL ALKALINE PHOSPHATASE (test code = 2204) 78 U/L AST (test code = 2218) 15 U/L ALT (test code = 2219) 19 U/L Vasquez MarlowCBC W/AUTO [id number] 00:00:00* Test Item Value Reference Range Interpretation Comme nts WBC (test code = 1001) 11.2 K/UL RBC (test code = 1002) 4.77 M/UL HEMOGLOBIN (test code = 1003) 14.0 G/DL HEMATOCRIT (test code = 1004) 40.4 % MCV (test code = 1005) 84.7 fL MCH (test code = 1006) 29.4 PG MCHC (test code = 1007) 34.7 G/DL RDW (test code = 1038) 12.5 % NEUTROPHILS (test code = 1008) 73.3 % LYMPHOCYTES (test code = 1010) 18.7 % MONOCYTES (test code = 1011) 5.5 % EOSINOPHILS (test code = 1012) 1.3 % BASOPHILS (test code = 1013) 0.4 % IMMATURE GRANYLOCYTES (test code = 1036) 0.8 % NUCLEATED RBCS (test code = 1065) 0.0 /100WBC'S PLATELET COUNT (test code = 1015) 293 K/UL ABSOLUTE NEUTROPHILS (test c ode = 1066) 8.19 K/UL ABSOLUTE LYMPHOCYTES (test c ode = 1067) 2.09 K/UL ABSOLUTE MONOCYTES (test cod e = 1068) 0.61 K/UL ABSOLUTE EOSINOPHILS (test c ode = 1040) 0.14 K/UL ABSOLUTE BASOPHILS (test cod e = 1069) 0.04 K/UL ABS IMMATURE GRANULOCYTES (t est code = 1020) 0.09 K/UL ABS NUCLEATED RBCS (test cod e = 26300) 0.00 K/UL Vasquez MarlowLIPID [id number] 00:00:00* Test Item Value Reference Range Interpretation Comme nts CHOLESTEROL (test code = 2210) 167 MG/DL TRIGLYCERIDES (test code = 2232) 182 MG/DL HDL CHOLESTEROL (test code = 2220) 31 MG/DL CALC LDL CHOL (test code = 2237) 106 MG/DL RISK RATIO LDL/HDL (test cod e = 2238) 3.42 RATIO Vasquez MarlowPSA, TOTAL, MEDICARE [id number] 00:00:00* Test Item Value Reference Range Interpretation Comme nts PSA, TOTAL (test code = 2606) 2.19 NG/ML Vasquez MarlowCOMPREHENSIVE METABOLIC [id number] 00:00:00* Test Item Value Reference Range Interpretation Comme nts GLUCOSE (test code = 2217) 88 MG/DL BUN (test code = 2208) 14 MG/DL CREATININE (test code = 2214) 1.00 MG/DL eGFR (2020 CKD-EPI) (test co de = 16368) 89 ML/MIN/1.73 CALC BUN/CREAT (test code = 2235) 14 RATIO SODIUM (test code = 2231) 140 MEQ/L POTASSIUM (test code = 2228) 4.5 MEQ/L CHLORIDE (test code = 2215) 99 MEQ/L CARBON DIOXIDE (test code = 2206) 29 MEQ/L CALCIUM (test code = 2209) 10.1 MG/DL PROTEIN, TOTAL (test code = 2229) 7.3 G/DL ALBUMIN (test code = 2201) 4.3 G/DL CALC GLOBULIN (test code = 2240) 3.0 G/DL CALC A/G RATIO (test code = 2234) 1.4 RATIO BILIRUBIN, TOTAL (test code = 2207) 0.5 MG/DL ALKALINE PHOSPHATASE (test code = 2204) 78 U/L AST (test code = 2218) 15 U/L ALT (test code = 2219) 19 U/L Vasquez MarlowCBC W/AUTO [id number] 00:00:00* Test Item Value Reference Range Interpretation Comme nts WBC (test code = 1001) 11.2 K/UL RBC (test code = 1002) 4.77 M/UL HEMOGLOBIN (test code = 1003) 14.0 G/DL HEMATOCRIT (test code = 1004) 40.4 % MCV (test code = 1005) 84.7 fL MCH (test code = 1006) 29.4 PG MCHC (test code = 1007) 34.7 G/DL RDW (test code = 1038) 12.5 % NEUTROPHILS (test code = 1008) 73.3 % LYMPHOCYTES (test code = 1010) 18.7 % MONOCYTES (test code = 1011) 5.5 % EOSINOPHILS (test code = 1012) 1.3 % BASOPHILS (test code = 1013) 0.4 % IMMATURE GRANYLOCYTES (test code = 1036) 0.8 % NUCLEATED RBCS (test code = 1065) 0.0 /100WBC'S PLATELET COUNT (test code = 1015) 293 K/UL ABSOLUTE NEUTROPHILS (test c ode = 1066) 8.19 K/UL ABSOLUTE LYMPHOCYTES (test c ode = 1067) 2.09 K/UL ABSOLUTE MONOCYTES (test cod e = 1068) 0.61 K/UL ABSOLUTE EOSINOPHILS (test c ode = 1040) 0.14 K/UL ABSOLUTE BASOPHILS (test cod e = 1069) 0.04 K/UL ABS IMMATURE GRANULOCYTES (t est code = 1020) 0.09 K/UL ABS NUCLEATED RBCS (test cod e = 88143) 0.00 K/UL Vasquez MarlowLIPID [id number] 00:00:00* Test Item Value Reference Range Interpretation Comme nts CHOLESTEROL (test code = 2210) 167 MG/DL TRIGLYCERIDES (test code = 2232) 182 MG/DL HDL CHOLESTEROL (test code = 2220) 31 MG/DL CALC LDL CHOL (test code = 2237) 106 MG/DL RISK RATIO LDL/HDL (test cod e = 2238) 3.42 RATIO Vasquez MarlowPSA, TOTAL, MEDICARE [id number] 00:00:00* Test Item Value Reference Range Interpretation Comme nts PSA, TOTAL (test code = 2606) 2.19 NG/ML Vasquez MarlowCOMPREHENSIVE METABOLIC [id number] 00:00:00* Test Item Value Reference Range Interpretation Comme nts GLUCOSE (test code = 2217) 88 MG/DL BUN (test code = 2208) 14 MG/DL CREATININE (test code = 2214) 1.00 MG/DL eGFR (2020 CKD-EPI) (test co de = 09855) 89 ML/MIN/1.73 CALC BUN/CREAT (test code = 2235) 14 RATIO SODIUM (test code = 2231) 140 MEQ/L POTASSIUM (test code = 2228) 4.5 MEQ/L CHLORIDE (test code = 2215) 99 MEQ/L CARBON DIOXIDE (test code = 2206) 29 MEQ/L CALCIUM (test code = 2209) 10.1 MG/DL PROTEIN, TOTAL (test code = 2229) 7.3 G/DL ALBUMIN (test code = 2201) 4.3 G/DL CALC GLOBULIN (test code = 2240) 3.0 G/DL CALC A/G RATIO (test code = 2234) 1.4 RATIO BILIRUBIN, TOTAL (test code = 2207) 0.5 MG/DL ALKALINE PHOSPHATASE (test code = 2204) 78 U/L AST (test code = 2218) 15 U/L ALT (test code = 2219) 19 U/L Vasquez MarlowCBC W/AUTO [id number] 00:00:00* Test Item Value Reference Range Interpretation Comme nts WBC (test code = 1001) 11.2 K/UL RBC (test code = 1002) 4.77 M/UL HEMOGLOBIN (test code = 1003) 14.0 G/DL HEMATOCRIT (test code = 1004) 40.4 % MCV (test code = 1005) 84.7 fL MCH (test code = 1006) 29.4 PG MCHC (test code = 1007) 34.7 G/DL RDW (test code = 1038) 12.5 % NEUTROPHILS (test code = 1008) 73.3 % LYMPHOCYTES (test code = 1010) 18.7 % MONOCYTES (test code = 1011) 5.5 % EOSINOPHILS (test code = 1012) 1.3 % BASOPHILS (test code = 1013) 0.4 % IMMATURE GRANYLOCYTES (test code = 1036) 0.8 % NUCLEATED RBCS (test code = 1065) 0.0 /100WBC'S PLATELET COUNT (test code = 1015) 293 K/UL ABSOLUTE NEUTROPHILS (test c ode = 1066) 8.19 K/UL ABSOLUTE LYMPHOCYTES (test c ode = 1067) 2.09 K/UL ABSOLUTE MONOCYTES (test cod e = 1068) 0.61 K/UL ABSOLUTE EOSINOPHILS (test c ode = 1040) 0.14 K/UL ABSOLUTE BASOPHILS (test cod e = 1069) 0.04 K/UL ABS IMMATURE GRANULOCYTES (t est code = 1020) 0.09 K/UL ABS NUCLEATED RBCS (test cod e = 49681) 0.00 K/UL Vasquez MarlowLIPID [id number] 00:00:00* Test Item Value Reference Range Interpretation Comme nts CHOLESTEROL (test code = 2210) 167 MG/DL TRIGLYCERIDES (test code = 2232) 182 MG/DL HDL CHOLESTEROL (test code = 2220) 31 MG/DL CALC LDL CHOL (test code = 2237) 106 MG/DL RISK RATIO LDL/HDL (test cod e = 2238) 3.42 RATIO Vasquez MarlowPSA, TOTAL, MEDICARE [id number] 00:00:00* Test Item Value Reference Range Interpretation Comme nts PSA, TOTAL (test code = 2606) 2.19 NG/ML Vasquez MarlowCOMPREHENSIVE METABOLIC [id number] 00:00:00* Test Item Value Reference Range Interpretation Comme nts GLUCOSE (test code = 2217) 88 MG/DL BUN (test code = 2208) 14 MG/DL CREATININE (test code = 2214) 1.00 MG/DL eGFR (2020 CKD-EPI) (test co de = 95582) 89 ML/MIN/1.73 CALC BUN/CREAT (test code = 2235) 14 RATIO SODIUM (test code = 2231) 140 MEQ/L POTASSIUM (test code = 2228) 4.5 MEQ/L CHLORIDE (test code = 2215) 99 MEQ/L CARBON DIOXIDE (test code = 2206) 29 MEQ/L CALCIUM (test code = 2209) 10.1 MG/DL PROTEIN, TOTAL (test code = 2229) 7.3 G/DL ALBUMIN (test code = 2201) 4.3 G/DL CALC GLOBULIN (test code = 2240) 3.0 G/DL CALC A/G RATIO (test code = 2234) 1.4 RATIO BILIRUBIN, TOTAL (test code = 2207) 0.5 MG/DL ALKALINE PHOSPHATASE (test code = 2204) 78 U/L AST (test code = 2218) 15 U/L ALT (test code = 2219) 19 U/L Vasquez MarlowCBC W/AUTO [id number] 00:00:00* Test Item Value Reference Range Interpretation Comme nts WBC (test code = 1001) 11.2 K/UL RBC (test code = 1002) 4.77 M/UL HEMOGLOBIN (test code = 1003) 14.0 G/DL HEMATOCRIT (test code = 1004) 40.4 % MCV (test code = 1005) 84.7 fL MCH (test code = 1006) 29.4 PG MCHC (test code = 1007) 34.7 G/DL RDW (test code = 1038) 12.5 % NEUTROPHILS (test code = 1008) 73.3 % LYMPHOCYTES (test code = 1010) 18.7 % MONOCYTES (test code = 1011) 5.5 % EOSINOPHILS (test code = 1012) 1.3 % BASOPHILS (test code = 1013) 0.4 % IMMATURE GRANYLOCYTES (test code = 1036) 0.8 % NUCLEATED RBCS (test code = 1065) 0.0 /100WBC'S PLATELET COUNT (test code = 1015) 293 K/UL ABSOLUTE NEUTROPHILS (test c ode = 1066) 8.19 K/UL ABSOLUTE LYMPHOCYTES (test c ode = 1067) 2.09 K/UL ABSOLUTE MONOCYTES (test cod e = 1068) 0.61 K/UL ABSOLUTE EOSINOPHILS (test c ode = 1040) 0.14 K/UL ABSOLUTE BASOPHILS (test cod e = 1069) 0.04 K/UL ABS IMMATURE GRANULOCYTES (t est code = 1020) 0.09 K/UL ABS NUCLEATED RBCS (test cod e = 74299) 0.00 K/UL Vasquez MarlowLIPID [id number] 00:00:00* Test Item Value Reference Range Interpretation Comme nts CHOLESTEROL (test code = 2210) 167 MG/DL TRIGLYCERIDES (test code = 2232) 182 MG/DL HDL CHOLESTEROL (test code = 2220) 31 MG/DL CALC LDL CHOL (test code = 2237) 106 MG/DL RISK RATIO LDL/HDL (test cod e = 2238) 3.42 RATIO Vasquez MarlowPSA, TOTAL, MEDICARE [id number] 00:00:00* Test Item Value Reference Range Interpretation Comme nts PSA, TOTAL (test code = 2606) 2.19 NG/ML Vasquez MarlowSARS-CoV-2 (COVID-19), RT-[id number] 16:26:54* Test Item Value Reference Range Interpretation Comments SARS-CoV-2 INTERPRETATION (test code = 59847) POSITIVE SEE NOTE A SARS-CoV-2 RNA DETECTEDPositive results are indicative of the presence of SARS-CoV-2 RNA;clinical correlation with patient history and other diagnosticinformation is necessary to determine patient infection status.Positive results do not rule out bacterial infection or co-infectionwith other viruses. Positive and negative predictive values oftesting are highly dependent on prevalence. SOURCE (test code = 46627) NASOPHARYNGEAL Note: Methodolog y is Shira Emilie Real-Time RT-PCR. The expected result or reference range is NEGATIVE (Not Detected). For more information regarding COVID-19 testing to include clinicalinformation, methodology detail, intended use, FDA authorization andrecommended fact sheets for patients or healthcare providers, see [employer] Announcement: SARS-CoV-2 (COVID-19) by NAAT at URL below (note,fact sheets are provided by method given in report:[email or web address]/client -communications/ Alternatively, see downloadable PDF fact sheet at:https://www.[employer] om/[email or web address]-RG-PCR UNLESS OTHERWISE INDICATED, ALL TESTING PERFORMED [facility], [facility]. [address] [place] [id number] [employer] APPRENTICE: OCLEMAN NAJERA M.D. [place] NUMBER [id number] [facility] [place]. [id number] SARS-CoV-2 (COVID-19) by RT-PCR (HIGH RISK)2021-12-05 00:00:00* Test Item Value Reference Range Interpretation Comme nts SARS-CoV-2 INTERPRETATION (test code = 49440) POSITIVE SOURCE (test code = 76688) NASOPHARYNGEAL Vasquez F [id number] (COVID-19) by RT-PCR (HIGH RISK)2021-12-05 00:00:00* Test Item Value Reference Range Interpretation Comme nts SARS-CoV-2 INTERPRETATION (test code = 57455) POSITIVE SOURCE (test code = 06543) NASOPHARYNGEAL Vasquez F [id number] (COVID-19) by RT-PCR (HIGH RISK)2021-12-05 00:00:00* Test Item Value Reference Range Interpretation Comme nts SARS-CoV-2 INTERPRETATION (test code = 02123) POSITIVE SOURCE (test code = 02834) NASOPHARYNGEAL Vasquez F [id number] (COVID-19) by RT-PCR (HIGH RISK)2021-12-05 00:00:00* Test Item Value Reference Range Interpretation Comme nts SARS-CoV-2 INTERPRETATION (test code = 12043) POSITIVE SOURCE (test code = 54064) NASOPHARYNGEAL Vasquez F [id number] (COVID-19) by RT-PCR (HIGH RISK)2021-12-05 00:00:00* Test Item Value Reference Range Interpretation Comme nts SARS-CoV-2 INTERPRETATION (test code = 01353) POSITIVE SOURCE (test code = 21839) NASOPHARYNGEAL Vasquez MarlowSARS-CoV-2 (COVID-19) by RT-PCR (HIGH RISK)2021-12-05 00:00:00* Test Item Value Reference Range Interpretation Comme nts SARS-CoV-2 INTERPRETATION (test code = 53963) POSITIVE SOURCE (test code = 78314) NASOPHARYNGEAL Vasquez Marlow- XR L-SPINE 2/3 [id number] 00:00:00 [facility] : 1965 Sex: M FAX: Yoan Lockett MD [phone] [place]: [place] St: PRE Name: APOORVA LUCIO FSED : 1965 Age/S: 56/M [address] [facility] Unit #: [id number] Loc: [place], [place] [address] Phys: Yoan Lockett MD Acct: [id number] Dis Date: Status: PRE ER PHONE #: Exam Date: 10/29/2021 1100 FAX #: Reason: lifting injury lumbar pain pmh ddd EXAMS: CPT CODE: [id number] XR L-SPINE 2/3 VIEWS 35028 PROCEDURE INFORMATION: Exam: XR Lumbosacral Spine Exam date and time: 10/29/2021 10:41 AM Age: 56 years old Clinical indication: Injury or trauma; Other: Lifting injury; Work related; Sprain or strain, lumbar ligaments; Additionalinfo: Lifting injury lumbar pain pmh ddd TECHNIQUE: Imaging protocol: XR of the lumbosacral spine. Views: 2 or 3 views. AP Lateral and Coned down lateral COMPARISON: No relevant prior studies available. FINDINGS: Bones/joints: Severe thoracolumbar/lumbosacral spondylosis without acute fracture, dislocation or destructive bone lesion. Degenerative disc disease is most severe at L5-S1 with large anterior and posterior marginal osteophytes. Lumbar lordosis is estimated at roughly 30 degrees, within normal limits. Soft tissues: Paraspinal soft tissues are unremarkable. Gastrointestinal tract: Nonobstructive bowel gas pattern without pneumatosis. IMPRESSION: 1. Multilevel degenerative change without acute fracture, dislocation or destructive bone lesion. at 1105 Reported and signed by: Scooter Diaz M.D. CC: Yoan Lockett MD Technologist: RT Rosa(R)(CT) Trnscrd Date/Time/By: 10/29/2021 (2428) : By: [email or web address] Orig Print D/T: S: 10/29/2021 (6085) PAGE 1 Signed Report
[2024-12-02 14:03] LABS: Absolute Eosinophils 0.1 K/uL (0-0.5); Absolute Monocytes 0.5 K/uL (0.1-1.3); Absolute Neutrophil 11.9 K/uL (1.8-8.0); Basophils % 0.3 % (0-1.3); Eosinophils % 0.8 % (0-4.4); Hematocrit 42.1 % (39.6-49.0); Hemoglobin 13.8 g/dL (13.6-17.9); Lymphocytes % 7.2 % (15.3-44.8); MCH 26.6 pg (27.0-35.0); MCHC 32.7 g/dL (32.0-36.0); MCV 81.2 fL (80-100); MPV 7.6 fL (7.6-11.3); Monocytes % 3.7 % (3.3-12.3); Platelets 256 thou/uL (152-406); RBC Red Blood Cell Count 5.18 M/uL (4.33-5.43); Red Cell Distribution Width 14.8 % (12.1-15.2)
[2024-12-02 14:19] LABS: Albumin 3.3 g/dL (3.4-5.0); Albumin/Globulin Ratio 0.7 (1.1-1.8); Anion Gap 8.9 mEq/L (5.0-15.0); Bilirubin Total 0.6 mg/dL (0.2-1.0); Globulin 4.5 g/dL (2.3-3.5); Potassium 3.9 mEq/L (3.5-5.1); Protein, Total 7.8 g/dL (6.4-8.2); Troponin High Sensitivity 3.3 pg/mL (<58.9)
--- NOTE | 2024-12-02 14:29 | RAD REPORT ---
EXAMINATION: CT Abdomen Pelvis W Contrast CLINICAL INDICATION: Male, 59 years old. ABD PAIN TECHNIQUE: CT abdomen and pelvis was performed, after the administration of IV contrast, [facility]. Axial, sagittal and coronal reconstructions were obtained. One or more of the following dose reduction techniques were used: Automated exposure control, adjustment of the mA and k V according to patient size, and iterative reconstruction. Unless otherwise specified, incidental findings do not require dedicated imaging follow-up. COMPARISON: No prior exam. FINDINGS: LOWER CHEST: The visualized lung bases are clear. LIVER: Normal in size and contour. No focal lesion. BILIARY SYSTEM: Small mildly hyperdense foci along the dependent gallbladder wall near the fundus may represent nonmineralized calculi. No other suspicious abnormalities. SPLEEN: Normal size. No focal lesion. PANCREAS: No mass, ductal dilation, or kristyn-pancreatic fluid. ADRENALS: Normal; no mass. KIDNEYS: Normal size and contour. No hydronephrosis. Transcortical right upper to midpole 3.6 cm simp le appearing cyst URINARY BLADDER: Unremarkable. GASTROINTESTINAL TRACT: Fluid opacification with mild mucosal hyperenhancement involving long segment s of nondistended distal small bowel. No evidence of free air, significant intra-abdominal free fluid, bowel obstruction or abscess. APPENDIX: Normal appendix. LYMPH NODES: No lymphadenopathy. MUSCULOSKELETAL: No acute or suspicious osseous abnormality. ADDITIONAL FINDINGS: None. IMPRESSION: Long segments of fluid opacification and mild mucosal hyperenhancement involving distal small bowel, without significant distention. Findings suggest infectious or inflammatory enteritis. Small mild radiodensities at the gallbladder fundus may suggest nonmineralized calculi.
[2024-12-02] MEDS ORDERED: ONDANSETRON 4 MG/2 ML VIAL ONE (14:35)
[2024-12-02] MEDS ORDERED: NA CHLORIDE 0.9% 1,000 ML ONE (14:35)
[2024-12-02] MEDS ORDERED: MORPHINE 4 MG/ML SYR ONE (14:35)
--- NOTE | 2024-12-02 15:16 | EDPHYS ---
Physician Documentation [facility] Name: Roberta Méndez Jr Age: 59 yrs Sex: Male : 1965 Arrival Date: 12/02/2024 Time: 12:29 Bed 18 Private MD: ED Physician Morales Kramer HPI: 12/02 14:40 This 59 yrs old Male presents to ER via Ambulatory with complaints of Stomach pain. sp3 14:40 59-year-old male with a history of hypertension, schizophrenia, bipolar disease, PTSD sp3 now presents to the ED with chief complaint abdominal cramping, diarrhea after potential eating bad food. He denies any other symptoms including fever, headache, chest pain, shortness of breath, significant vomiting, syncope, near syncope, bleeding, rash, or any other signs or symptoms on ROS at this time.. Historical: - Allergies: 12:46 Codeine; tm6 12:46 PENICILLINS; tm6 12:46 SHELLFISH; tm6 12:46 Latex, Natural Rubber; tm6 12:46 Tree Nuts; tm6 - PMHx: 12:46 Bipolar disorder; Schizophrenia; PTSD; Anxiety; Depressive disorder; Hypertensive tm6 disorder; - PSHx: 12:47 left hand skin graft; hernia repair; tm6 - Immunization history:: Flu vaccine is up to date. - Infectious Disease History:: Denies. - Social history:: Smoking status: Patient denies any tobacco usage or history of. ROS: 14:40 Constitutional: Negative for fever, chills, and weight loss, Eyes: Negative for injury, sp3 pain, redness, and discharge, Neck: Negative for injury, pain, and swelling, Cardiovascular: Negative for chest pain, palpitations, and edema, Respiratory: Negative for shortness of breath, cough, wheezing, and pleuritic chest pain, Back: Negative for injury and pain, MS/Extremity: Negative for injury and deformity, Skin: Negative for injury, rash, and discoloration, Neuro: Negative for headache, weakness, numbness, tingling, and seizure, Psych: Negative for depression, anxiety, suicide ideation, homicidal ideation, and hallucinations, Allergy/Immunology: Negative for hives, rash, and allergies, Endocrine: Negative for neck swelling, polydipsia, polyuria, polyphagia, and marked weight changes, 14:40 All other systems are negative, Exam: 14:43 Constitutional: This is a well developed, well nourished patient who is awake, alert, sp3 and in no acute distress. Head/Face: Normocephalic, atraumatic. Eyes: Pupils equal round and reactive to light, extra-ocular motions intact. Lids and lashes normal. Conjunctiva and sclera are non-icteric and not injected. Cornea within normal limits. Periorbital areas with no swelling, redness, or edema. Neck: Trachea midline, no thyromegaly or masses palpated, and no cervical lymphadenopathy. Supple, full range of motion without nuchal rigidity, or vertebral point tenderness. No Meningismus. Chest/axilla: Normal chest wall appearance and motion. Nontender with no deformity. No lesions are appreciated. Cardiovascular: Regular rate and rhythm with a normal S1 and S2. No gallops, murmurs, or rubs. Normal PMI, no JVD. No pulse deficits. Respiratory: Lungs have equal breath sounds bilaterally, clear to auscultation and percussion. No rales, rhonchi or wheezes noted. No increased work of breathing, no retractions or nasal flaring. Back: No spinal tenderness. No costovertebral tenderness. Full range of motion. Skin: Warm, dry with normal turgor. Normal color with no rashes, no lesions, and no evidence of cellulitis. MS/ Extremity: Pulses equal, no cyanosis. Neurovascular intact. Full, normal range of motion. Neuro: Awake and alert, GCS 15, oriented to person, place, time, and situation. Cranial nerves II-XII grossly intact. Motor strength 5/5 in all extremities. Sensory grossly intact. Cerebellar exam normal. Normal gait. Psych: Awake, alert, with orientation to person, place and time. Behavior, mood, and affect are within normal limits. 14:43 Abdomen/GI: Mild diffuse pain to palpation without peritoneal signs, rebound or guarding., 14:49 ECG was reviewed by the Attending Physician. EKG demonstrates normal sinus rhythm at 83 sp3 bpm with normal intervals, normal QRS, normal axis, normal ST/T-segment's without evidence of acute ischemia. Vital Signs: 12:46 Resp 19; Temp 98.4(O); Weight 108.86 kg; Height 5 ft. 10 in. ; Pain 7/10; tm6 12:48 BP 136 / 86; Pulse 104; Resp 18; Pulse Ox 96% on R/A; MAP 97 mmHg; tm6 14:35 BP 99 / 52; Pulse 82; Resp 16; Pulse Ox 95% on R/A; db 15:15 BP 91 / 56; Pulse 85; Resp 16; Pulse Ox 95% on R/A; db 12:46 Body Mass Index 34.44 (108.86 kg, 177.8 cm) tm6 12:46 Pain Scale: Adult tm6 MDM: 12:57 Medical Screening Exam initiated sp3 14:43 Data reviewed: vital signs, nurses notes, old medical records, lab test result(s), sp3 radiologic studies. ED course: 59-year-old male with abdominal pain and gastroenteritis type symptoms. Differential diagnosis includes foodborne illness, viral illness, bacterial gastroenteritis, or other potential surgical pathology. I am not highly suspicious of vascular, or other pathology including sepsis or shock. Will obtain CT scan of the abdomen and pelvis, general labs and supportive care with normal saline and pain/nausea medication. Disposition probable discharge on any indicated medications.. 15:14 ED course: CT demonstrates enteritis and mild leukocytosis as well. Will place on sp3 antibiotics and discharged home with PCP follow-up.. 12/02 13:32 Order name: CBC with Diff; Complete Time: 14:35 3 12/02 13:32 Order name: CMP; Complete Time: 14:35 3 12/02 13:32 Order name: Lipase; Complete Time: 14:35 3 12/02 13:32 Order name: Lactate w/ 2H reflex if indic.; Complete Time: 14:35 3 12/02 13:32 Order name: Troponin High Sensitivity; Complete Time: 14:35 3 12/02 13:32 Order name: CT Abd/Pelvis - IV Contrast Only; Complete Time: 14:35 3 12/02 13:32 Order name: IV Saline Lock; Complete Time: 13:58 sp3 12/02 13:32 Order name: Labs collected and sent; Complete Time: 13:58 3 12/02 13:32 Order name: EKG - Nurse/Tech; Complete Time: 14:40 sp3 Administered Medications: 14:30 Drug: Ondansetron IVP 4 mg IVP once; over 2 minutes Route: IVP; Site: right antecubital;db 16:22 Follow up: Response: No adverse reaction db 14:30 Drug: morphine IVP or IV 4 mg IVP once over 4 mins Route: IVP; Infused Over: 4 mins; db Site: right antecubital; 16:22 Follow up: Response: No adverse reaction db 14:30 Drug: NS 0.9% IV 1000 ml IV at 1 bolus Per protocol; to be given as a bolus over 60 db minutes Route: IV; Rate: 1 bolus; Site: right antecubital; 16:22 Follow up: IV Status: Completed infusion; IV Intake: 1000ml db Disposition Summary: 12/02/24 15:15 Discharge Ordered Notes: Location: Home sp3 Condition: Stable sp3 Diagnosis - Abdominal pain, enteritis, diarrhea sp3 Followup: sp3 - With: Private Physician - When: Upon discharge from the Emergency Department - Reason: Continuance of care Discharge Instructions: - Discharge Summary Sheet sp3 - Diarrhea, Adult sp3 Forms: - Medication Reconciliation Form sp3 - Antibiotic Education sp3 - Prescription Opioid Use sp3 - Patient Portal Instructions sp3 - Leadership Thank You Letter sp3 Prescriptions: - Cipro 500 mg Oral tablet - take 1 tablet ORAL route every 12 hours for 7 days; 14 tablet; Refills: 0, sp3 Product Selection Permitted - Flagyl 500 mg Oral tablet - take 1 tablet ORAL route every 8 hours for 7 days; 21 tablet; Refills: 0, sp3 Product Selection Permitted - ondansetron 8 mg Oral Tablet,disintegrating - take 1 tablet ORAL route every 12 hours; 15 tablet; Refills: 0, Product sp3 Selection Permitted Signatures: Dispatcher [employer] EDMorales Liang MD MD sp3 Sabrina Nielson, RN RN db Cordelia Landaverde RN RN tm6 Corrections: (The following items were deleted from the chart) 13:32 13:32 Abdomen Pelvis W Con+CT.RAD.BRZ ordered. JUNE WATKINS
--- NOTE | 2024-12-02 15:16 | ER ---
Nurse's Notes [facility] Name: Roberta Méndez Jr Age: 59 yrs Sex: Male : 1965 Arrival Date: 12/02/2024 Time: 12:29 Bed 18 Private MD: Diagnosis: Abdominal pain, enteritis, diarrhea Presentation: 12/02 12:48 Chief complaint: Patient states: having nausea and diarrhea and headache since this tm6 morning. Stomach feels hard and painful. Coronavirus screen: Client denies travel out of the [place] in the last 14 days. Ebola Screen: Patient negative for fever greater than or equal to 101.5 degrees Fahrenheit, and additional compatible Ebola Virus Disease symptoms Patient denies exposure to infectious person. Patient denies travel to an Ebola-affected area in the 21 days before illness onset. No symptoms or risks identified at this time. Initial Sepsis Screen: Does the patient meet any 2 criteria? HR > 90 bpm. Does the patient have a suspected source of infection? No. Patient's initial sepsis screen is negative. Risk Assessment: Do you want to hurt yourself or someone else? Patient reports no desire to harm self or others. Onset of symptoms was December 02, 2024. 12:48 Method Of Arrival: Ambulatory tm6 12:48 Acuity: MARCELA 3 tm6 Triage Assessment: 12:48 General: Appears in no apparent distress. Behavior is calm, cooperative. Pain: tm6 Complains of pain in abdomen Pain currently is 7 out of 10 on a pain scale. Pain began 4 hours ago. EENT: No signs and/or symptoms were reported regarding the EENT system. Neuro: Level of Consciousness is awake, alert, obeys commands, Oriented to person, place, time, situation, Reports headache. Cardiovascular: Patient's skin is warm and dry. Respiratory: Airway is patent Respiratory effort is even, unlabored, Respiratory pattern is regular, symmetrical. GI: Abdomen is round non-distended, Reports lower abdominal pain, upper abdominal pain, diarrhea, nausea. : No signs and/or symptoms were reported regarding the genitourinary system. Derm: No signs and/or symptoms reported regarding the dermatologic system. Musculoskeletal: No signs and/or symptoms reported regarding the musculoskeletal system. Historical: - Allergies: 12:46 Codeine; tm6 12:46 PENICILLINS; tm6 12:46 SHELLFISH; tm6 12:46 Latex, Natural Rubber; tm6 12:46 Tree Nuts; tm6 - PMHx: 12:46 Bipolar disorder; Schizophrenia; PTSD; Anxiety; Depressive disorder; Hypertensive tm6 disorder; - PSHx: 12:47 left hand skin graft; hernia repair; tm6 - Immunization history:: Flu vaccine is up to date. - Infectious Disease History:: Denies. - Social history:: Smoking status: Patient denies any tobacco usage or history of. Screenin:42 [facility] ED Fall Risk Assessment (Adult) History of falling in the last 3 months, db including since admission No falls in past 3 months (0 pts) Confusion or Disorientation No (0 pts) Intoxicated or Sedated No (0 pts) Impaired Gait No (0 pts) Mobility Assist Device Used No (0 pt) Altered Elimination No (0 pt) Score/Fall Risk Level 0 - 2 = Low Risk Oriented to surroundings, Maintained a safe environment. Abuse screen: Denies threats or abuse. Denies injuries from another. Nutritional screening: No deficits noted. Tuberculosis screening: No symptoms or risk factors identified. Assessment: 14:42 Reassessment: Patient appears in no apparent distress at this time. Patient and/or db family updated on plan of care and expected duration. Pain level reassessed. Patient is alert, oriented x 3, equal unlabored respirations, skin warm/dry/pink. General: Appears in no apparent distress. comfortable, Behavior is calm, cooperative. Neuro: Level of Consciousness is awake, alert, obeys commands, Oriented to person, place, time, situation. 15:34 Reassessment: Patient appears in no apparent distress at this time. Patient and/or db family updated on plan of care and expected duration. Pain level reassessed. Patient is alert, oriented x 3, equal unlabored respirations, skin warm/dry/pink. PATIENT DC PENDING NS BOLUS TO FINISH. 16:21 Reassessment: Patient appears in no apparent distress at this time. Patient and/or db family updated on plan of care and expected duration. Pain level reassessed. Patient is alert, oriented x 3, equal unlabored respirations, skin warm/dry/pink. Patient states feeling better. Patient states symptoms have improved. Vital Signs: 12:46 Resp 19; Temp 98.4(O); Weight 108.86 kg; Height 5 ft. 10 in. ; Pain 7/10; tm6 12:48 BP 136 / 86; Pulse 104; Resp 18; Pulse Ox 96% on R/A; MAP 97 mmHg; tm6 14:35 BP 99 / 52; Pulse 82; Resp 16; Pulse Ox 95% on R/A; db 15:15 BP 91 / 56; Pulse 85; Resp 16; Pulse Ox 95% on R/A; db 12:46 Body Mass Index 34.44 (108.86 kg, 177.8 cm) tm6 12:46 Pain Scale: Adult tm6 ED Course: 12:34 Patient arrived in ED. ra3 12:44 Morales Kramer MD is Attending Physician. sp3 12:48 Arm band placed on right wrist. tm6 12:50 Triage completed. tm6 13:17 Patient placed in an exam room, on a stretcher. ll1 13:50 Initial lab(s) drawn, by ED staff, sent to lab. Inserted saline lock: 20 gauge in right ll1 antecubital area, using aseptic technique. Blood collected. Flushed with 10 mL NS. 14:02 CT Abd/Pelvis - IV Contrast Only In Process Unspecified. EDMS 14:26 Sabrina Nielson, RN is Primary Nurse. db 16:21 Patient has correct armband on for positive identification. Bed in low position. Call db light in reach. Side rails up X 1. Provided Education on: DISCHARGE, PRESCRIPTIONS AND FOLLOWUP. Pulse ox on. NIBP on. Client placed on continuous cardiac and pulse oximetry monitoring. NIBP monitoring applied. panel monitor on. Warm blanket given. Pillow given. 16:21 No provider procedures requiring assistance completed. IV discontinued, intact, db bleeding controlled, No redness/swelling at site. Administered Medications: 14:30 Drug: Ondansetron IVP 4 mg IVP once; over 2 minutes Route: IVP; Site: right antecubital;db 16:22 Follow up: Response: No adverse reaction db 14:30 Drug: morphine IVP or IV 4 mg IVP once over 4 mins Route: IVP; Infused Over: 4 mins; db Site: right antecubital; 16:22 Follow up: Response: No adverse reaction db 14:30 Drug: NS 0.9% IV 1000 ml IV at 1 bolus Per protocol; to be given as a bolus over 60 db minutes Route: IV; Rate: 1 bolus; Site: right antecubital; 16:22 Follow up: IV Status: Completed infusion; IV Intake: 1000ml db Medication: 16:21 VIS not applicable for this client. db Intake: 16:22 IV: 1000ml; Total: 1000ml. db Outcome: 15:15 Discharge ordered by sp3 16:21 Discharged to home ambulatory, with family, db 16:21 Condition: stable 16:21 Discharge instructions given to patient, Instructed on discharge instructions, follow up and referral plans. Prescriptions given X 3, 16:23 Patient left the ED. db Signatures: Dispatcher [employer] EDMS Panchito Gay RN RN ll1 Morales Kramer MD MD sp3 Sabrina Nielson RN RN Cordelia Avendano RN RN tm6 Bria Goodson ra3 Corrections: (The following items were deleted from the chart) 14:42 14:30 BP 112 / 59; Pulse 70bpm; Resp 16bpm; Pulse Ox 100% RA; db db 14:42 13:30 BP 110 / 60; Pulse 70bpm; Resp 16bpm; Pulse Ox 100% RA; db db
[2024-12-02 17:00] VITALS: TEMP 98.4
[2024-12-02 17:10] VITALS: O2SAT 95
[2024-12-02 17:12] VITALS: BP 91/56
--- NOTE | 2024-12-05 10:50 | EKG ---
Test Date: 2024-12-02 Test Time: 14:40:16 Power Wheelchair Mechanic: SHANEKA MEASUREMENT RESULTS: Intervals: Rate: 83 MT: 186 QRSD: 88 QT: 372 QTc: 437 [place]: P: 57 MT: 186 QRS: 22 T: 68 INTERPRETIVE STATEMENTS: Normal sinus rhythm Normal ECG Compared to ECG 07/27/2024 13:29:42 No significant changes Electronically Signed On 12-05-24 10:49:50 INNER TUBE [employer]UTTER by Ramón Mancuso
== END 2024-12-02 16:23 | disposition home or self-care (01) ==
LOC: ER 12:29
DX: K52.9 Noninfective gastroenteritis and colitis, unspecified (principal)
CPT/HCPCS: 96361; 93005; 85025; 36415; 83605; 84484; 83690; 80053; 74177; 96375; 96374; 99285; Q9967; J2405; J7030